=== PATIENT | male | born 1940 | race Caucasian/White ===

== ENCOUNTER 2017-10-20 14:22 | Emergency (ER) | payer MEDICARE ==
[~2017-10-20] VITALS: Ht 167.6 cm; Wt 74.8 kg
[~2017-10-20 14:22] MED LIST: ACET-386 PO; ASPI1TAB71 PO; BISO10TA8 PO; CALC-127 PO; EZET1TAB44 PO; FLAX340P PO; GARL10002 PO; GLUC-113 PO; HCT25T PO; L LYSINE PO; LISI5TAB14 PO; NFPRILOC40; OMEG1CAP51 PO; TELM1TAB3 PO; [UNRECOGNIZED DRUG - CODE] PO; [UNRECOGNIZED DRUG - OTHER]
--- NOTE | 2017-10-20 16:30 | Diagnostic Imaging Report ---
EXAMINATION: Three views of the left elbow. INDICATION: Injury. FINDINGS: There is no fracture, dislocation or radiopaque foreign body. No significant effusion is suggested. IMPRESSION: No fracture is seen. Dictated by: Dictated on workstation # [id number]
--- NOTE | 2017-10-20 16:32 | Diagnostic Imaging Report ---
Three views of the left shoulder. INDICATION: Injury. FINDINGS: No fracture, dislocation, or radiopaque foreign body. The glenohumeral and acromioclavicular joints appear unremarkable. IMPRESSION: Unremarkable exam. Dictated by: Dictated on workstation # [id number]
--- NOTE | 2017-10-20 16:57 | ED Upper Extremity ---
General Chief Complaint: Upper Extremity Stated Complaint: L ARM PAIN, FALL Nursing Sepsis Screen: No Definite Risk History of Present Illness Time seen by provider: 15:45 Initial Comments 77-year-old male reports that he tripped over his dog earlier today falling landing on an outstretched left arm. 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 He's had no other previous injuries to the left arm. He denies head injury or loss of consciousness at the time of the fall. He is reporting left elbow and left shoulder pain. He has a small abrasion on the lateral epicondyles the left elbow. He takes Anacin twice daily for headaches. He issues that for the shoulder and elbow pain and reports no requirements for additional pain medication at this time. Pain/Injury Location: left shoulder, left elbow Method of Injury: fell Modifying Factors: Improves With Immobilization, Improves With Rest Allergies and Home Medications Allergies Coded Allergies: No Known Drug Allergies (Unverified , 06/08/10) Home Medications Aspirin/Caffeine 1 Tab Tablet, 1 TAB PO NEEDED, (Reported) Bisoprolol Fumarate 10 Mg Tablet, 10 PO DAILY, (Reported) EVENING Garlic 1,000 Mg Capsule, 1,000 MG PO DAILY, (Reported) Gluc 2KCL/Chondr/Charles Hy/Hy Ac 1 Each Capsule, 1 EACH PO BID, (Reported) Hydrochlorothiazide 25 Mg Tab, 25 MG PO DAILY, (Reported) Lisinopril 5 Mg Tablet, 5 MG PO DAILY, (Reported) Omeprazole 40 Mg Capsule.dr, DAILY, (Reported) [L Lysine] , 500 MG PO BID, (Reported) Constitutional: no symptoms reported, see HPI Musculoskeletal: see HPI, joint pain (left elbow and left shoulder), muscle pain (left upper extremity) All Other Systems Reviewed Negative Unless Noted: Yes Past Bjqhzkt-Pcijuy-Lntjiq Hx Patient Social History Alcohol Use: Denies Use Recreational Drug Use: No Smoking Status: Former Smoker Type Used: Cigarettes Former Smoker, Quit: Nov 02, 1985 Recent Foreign Travel: No Contact w/Someone Who Travel: No Recent Infectious Disease Expo: No Physical Abuse: No Sexual Abuse: No Mistreated: No Seasonal Allergies Seasonal Allergies: No Surgeries History of Surgeries: Yes (CIRCUMCISION, R KNEE) Surgeries: Eye Surgery, Orthopedic Respiratory History of Respiratory Disorde: No Cardiovascular Cardiac Disorders: Hypertension Neurological History of Neurological Disord: Yes Neurological Disorders: TIA Reproductive System Hx Reproductive Disorders: No Gastrointestinal History of Gastrointestinal Di: Yes Gastrointestinal Disorders: Gastroesophageal Reflux, Hiatal Hernia Musculoskeletal History of Musculoskeletal Dis: Yes Musculoskeletal Disorders: Arthritis Endocrine History of Endocrine Disorders: No HEENT HEENT Disorders: Cataract Cancer History of Cancer: No Psychosocial History of Psychiatric Problem: No Suicide Risk Score: 0 Integumentary History of Skin or Integumenta: No Blood Transfusions History of Blood Disorders: No Reviewed Nursing Assessment Reviewed/Agree w Nursing PMH: Yes Physical Exam Vital Signs Vital Sign - Last 12Hours 10/20/17 14:34 Temp 97.4 Pulse 66 Resp 20 B/P (MAP) 120/73 (89) Pulse Ox 98 O2 Delivery Room Air Capillary Refill : Less Than 3 Seconds General Appearance: WD/WN, no apparent distress Cardiovascular: normal peripheral pulses, regular rate, rhythm, no murmur Respiratory: chest non-tender, lungs clear, normal breath sounds Shoulder: bone tenderness (lateral), No deformity, No ecchymosis, limited ROM ( left shoulder forward elevation to 100, full internal and external rotation but with pain), pain, soft tissue tenderness, No swelling Elbow/Forearm: Left, abrasions (lateral condyle), limited ROM (secondary to pain), pain, soft tissue tenderness, swelling (lateral aspect) Wrist: Yes normal inspection (left), Yes non-tender, Yes no evidence of injury , Yes normal ROM Neurologic/Psychiatric: no motor/sensory deficits, alert, normal mood/affect, oriented x 3 Skin: normal color, warm/dry Lymphatic: no adenopathy Progress/Results/Core Measures Results/Orders My Orders Orders - SHARRON DONOVAN Shoulder, Left, 3 Views (10/20/17 15:53) Elbow, Left, 3 Views (10/20/17 15:53) Dipht,Pertuss(Acell),Tet Adult (Boostrix (10/20/17 17:08) Vital Signs/I&O Vital Sign - Last 12Hours 10/20/17 14:34 Temp 97.4 Pulse 66 Resp 20 B/P (MAP) 120/73 (89) Pulse Ox 98 O2 Delivery Room Air Blood Pressure Mean: 89 Progress Note : Time: 15:45 Progress Note Initial evaluation completed, recommended x-rays of the left elbow and shoulder with reevaluation after these are completed. Tetanus booster, as the patient reports it has been greater than 5 years since his last vaccine probably closer to 15 years. 1630 results of x-rays discussed with the patient and his family, no fractures or dislocations noted. Sling applied for comfort. Ice pack to left shoulder. Discharge instructions and review precautions reviewed with patient. All questions answered. Diagnostic Imaging Plain Films/CT/US/NM/MRI: other Comments NAME: [facility] REC#: [id number] PT STATUS: REG ER : 1940 PHYSICIAN: SHARRON DONOVAN ADMIT DATE: 10/20/17/ER Signed Date of Exam:10/20/17 SHOULDER, LEFT, 3 VIEWS Three views of the left shoulder. INDICATION: Injury. FINDINGS: No fracture, dislocation, or radiopaque foreign body. The glenohumeral and acromioclavicular joints appear unremarkable. IMPRESSION: Unremarkable exam. Dictated by: Dictated on workstation # [id number] Dict: 10/20/17 1623 Trans: 10/20/17 1650 [id number] Interpreted by: BC BILLINGSLEY MD Electronically signed by: BC BILLINGSLEY MD 10/20/171649 Reviewed: Reviewed by Me Plain Films/CT/US/NM/MRI: other (left elbow) Comments NAME: [facility] REC#: [id number] PT STATUS: REG ER : 1940 PHYSICIAN: SHARRON DONOVAN ADMIT DATE: 10/20/17/ER Signed Date of Exam:10/20/17 ELBOW, LEFT, 3 VIEWS EXAMINATION: Three views of the left elbow. INDICATION: Injury. FINDINGS: There is no fracture, dislocation or radiopaque foreign body. No significant effusion is suggested. IMPRESSION: No fracture is seen. Dictated by: Dictated on workstation # [id number] Dict: 10/20/17 162 Trans: 10/20/171649 [facility] [id number] Interpreted by: BC BILLINGSLEY MD Electronically signed by: BC BILLINGSLEY MD 10/20/171649 Reviewed: Reviewed by Me Departure Impression Impression: Primary Impression: Fall Qualified Codes: W19.XXXA - Unspecified fall, initial encounter Additional Impressions: Contusion of left elbow Qualified Codes: S50.02XA - Contusion of left elbow, initial encounter Contusion of left shoulder Qualified Codes: S40.012A - Contusion of left shoulder, initial encounter Disposition: HOME, SELF-CARE Condition: Stable Departure-Patient Inst. Decision time for Depature: 16:30 Referrals: THADDEUS RAMAN MD (PCP/Family) Primary Care Physician Patient Instructions: Contusion (DC) Add. Discharge Instructions: Ice to left elbow and left shoulder 20 minutes every 2 hours while awake. Continue taking Anacin as prescribed for pain. May take Tylenol 650 mg every 6 hours for additional pain. Follow up with your primary care provider if symptoms are not improving. Return to emergency department for new injuries or concerns. Sling for comfort, remove at least twice daily for gentle range of motion to the left elbow and shoulder. All discharge instructions reviewed with patient and/or family. Voiced understanding. Copy Copies To 1: THADDEUS RAMAN MD, AMY ARNP Oct 20, 2017 16:57
[2017-10-20] MEDS ORDERED: TETANUS,DIPTH,PERTUSS P/F (BOOSTRIX) 0.5 ML VIAL IM STA (17:08)
[2017-10-20 17:15] VITALS: BP 123/71
== END 2017-10-20 17:15 | disposition home or self-care (01) ==
LOC: EDUNIT# 14:22 → ER 14:24
DX: S50.02XA Contusion of left elbow, initial encounter (principal); S40.012A Contusion of left shoulder, initial encounter; I10 Essential (primary) hypertension; K21.9 Gastro-esophageal reflux disease without esophagitis; M19.90 Unspecified osteoarthritis, unspecified site; Z23 Encounter for immunization; Z86.73 Personal history of transient ischemic attack (TIA), and cerebral infarction without residual deficits; Z87.19 Personal history of other diseases of the digestive system; Z79.82 Long term (current) use of aspirin; Z87.891 Personal history of nicotine dependence; W01.0XXA Fall on same level from slipping, tripping and stumbling without subsequent striking against object, initial encounter
CPT/HCPCS: 73030; 73080; 90715; 99284

== ENCOUNTER 2018-03-14 08:07 | Day surgery (SDC) | payer MEDICARE ==
[~2018-03-14] VITALS: Ht 167.6 cm; Wt 74.8 kg
[~2018-03-14 08:07] MED LIST changes: +BISO10TA PO; +GARL1TAB PO; +HYDR25TA4 PO; +LISI-556 PO; +LYSI600T PO; +MV,M1TAB2 PO; +OMEP40CA36 PO; +POTA-51 PO
[2018-03-14] MEDS ORDERED: NS IV 500 ML 500 ML ONE (08:43)
[2018-03-14] MEDS ORDERED: NS IV 500 ML 500 ML IV ONE (08:45)
[2018-03-14] MEDS ORDERED: fentaNYL INJECTION 100 MCG/2 ML AMP IVP PRN (08:45)
[2018-03-14] MEDS ORDERED: MIDAZOLAM 2 MG/2 ML (VERSED) VIAL IVP PRN (08:45)
[2018-03-14 08:50] VITALS: BP 112/70
[2018-03-14] MEDS ORDERED: fentaNYL INJECTION 100 MCG/2 ML AMP ONE (09:37)
[2018-03-14] MEDS ORDERED: MIDAZOLAM 2 MG/2 ML (VERSED) VIAL ONE ×2 (09:37)
--- NOTE | 2018-03-14 09:57 | Conscious Sedation/ASA ---
Conscious Sedation Pre-Proced Time Reviewed: 09:57 ASA Class: 2 Airway Mallampati Classification: ([place] appropriate class) I. II. III, IV Lungs Heart ASA score ASA 1: a normal healthy patient ASA 2: a patient with a mild systemic disease (mid diabetes, controlled hypertension, obesity ASA 3: a patient with a severe systemic disease that limits activity (angina , COPD, prior Myocardial infarction) ASA 4: a patient with an incapacitating disease that is a constant threat to life (CHF, renal failure) ASA 5: a moribund patient not expected to survive 24 hrs. (ruptured aneurysm) ASA 6: a declared brain patient whose organs are being harvested. For emergent operations, add the letter E after the classification Grade 2 Sedation Plan: Discussed options with patient/fam Note The patient is an appropriate candidate to undergo the planned procedure, sedation, and anesthesia. The patient immediately re-assessed prior to indication. ROSELYN ANDRES MD Mar 14, 2018 9:57 am
--- NOTE | 2018-03-14 09:57 | History & Physicial ---
History of Present Illness History of Present Illness Reason for visit/HPI to undergo screening colonoscopy. Date of Admission 03/14/18 Date Seen by Provider: Mar 14, 2018 Time Seen by Provider: 09:56 I consulted on this patient on 03/14/18 09:55 Attending Physician Roselyn Andres MD Admitting Physician Erasmo Nick MD Consult Allergies and Home Medications Allergies Coded Allergies: No Known Drug Allergies (Unverified , 06/08/10) Home Medications Bisoprolol Fumarate 10 Mg Tablet, 10 MG PO HS, (Reported) Garlic 1 Each Tablet, 1 EACH PO DAILY, (Reported) Gluc 2Kcl/Chondr/Charles Hy/Hy AC 1 Each Capsule, 1 EACH PO BID, (Reported) Hydrochlorothiazide 25 Mg Tablet, 25 MG PO DAILY, (Reported) Lisinopril 5 Mg Tablet, 5 MG PO DAILY, (Reported) Lysine 600 Mg Tablet, 600 MG PO BID, (Reported) Mv,Minerals/FA/Lycopene/Ginkgo 1 Each Tablet, 1 EACH PO DAILY, (Reported) Omeprazole 40 Mg Capsule.dr, 40 MG PO DAILY, (Reported) Potassium Chloride 20 Meq Tablet.er, 20 MEQ PO DAILY, (Reported) Patient Home Medication List Home Medication List Reviewed: Yes Past Gsxdlwv-Chjepv-Fclbmi Hx Patient Social History Marrital Status: Employed/Student: retired Alcohol Use: Denies Use Recreational Drug Use: No Smoking Status: Former Smoker Former Smoker, Quit: Nov 02, 1985 Type Used: Cigarettes Recent Foreign Travel: No Contact w/other who traveled: No Recent Hopitalizations: No Recent Infectious Disease Expo: No Immunizations Up To Date Date of Influenza Vaccine: Sep 06, 2017 Seasonal Allergies Seasonal Allergies: Yes Surgeries Yes (CIRCUMCISION, R KNEE) Eye Surgery, Orthopedic Respiratory No Cardiovascular Hypertension Neurological Yes TIA Reproductive System Hx Reproductive Disorders: No Gastrointestinal Yes Gastroesophageal Reflux, Hiatal Hernia Musculoskeletal Yes Arthritis Endocrine History of Endocrine Disorders: No HEENT HEENT Disorders: Cataract Cancer No Psychosocial History of Psychiatric Problem: No Integumentary History of Skin or Integumenta: No Blood Transfusions History of Blood Disorders: No Constitutional: no symptoms reported EENTM: no symptoms reported Respiratory: no symptoms reported Cardiovascular: no symptoms reported Gastrointestinal: no symptoms reported Genitourinary: no symptoms reported Musculoskeletal: joint pain Skin: no symptoms reported Psychiatric/Neurological: No Symptoms Reported Physical Exam Vital Signs Vital Signs - First Documented 03/14/18 08:50 Temp 98.0 Pulse 63 Resp 18 B/P (MAP) 112/70 (84) Pulse Ox 96 O2 Delivery Room Air Capillary Refill : General Appearance: No Apparent Distress Neck: Normal Inspection Respiratory: Lungs Clear Cardiovascular: Regular Rate, Rhythm Gastrointestinal: Non Tender, Soft Rectal: Deferred Extremity: Normal Inspection Neurologic/Psychiatric: Alert, Oriented x3 Skin: Warm/Dry Assessment/Plan Assessment and Plan gentleman here to undergo screening colonoscopy. Discussed in detail Admission Diagnosis Admission Status: Other (Outpt Proc) ROSELYN ANDRES MD Mar 14, 2018 9:57 am
--- NOTE | 2018-03-14 11:50 | Endo Procedure Record ---
Endo Procedure Report Date of Procedure Last Colonoscopy: No Mar 14, 2018 Surgeon (s) ROSELYN ANDRES MD Post Procedure/Op Diagnosis 3 mm sessile polyp at the midrectum 2 mm polyp at mid sigmoid colon 2 mm polyp at the distal descending colon Very few diverticula Procedure Performed Colonoscopy to cecum Snare polypectomy 3 Description of Procedure Anesthesia Type: Conscious Sedation Specimen(s) collected/removed polyps 3 Description of the Procedure Indication for the procedure: This gentleman came in for a screening colonoscopy. Informed consent was obtained after reviewing the procedure in detail. Description of the procedure: She was placed in left lateral decubitus position and his vital signs were monitored. Conscious sedation was achieved using Versed and fentanyl. Digital rectal examination was unremarkable. The colonoscope was then introduced in the rectum and advanced all the way up to cecum. The scope was then withdrawn slowly and the mucosa examined in a systematic fashion. Findings 1. A 3 mm, sessile polyp at the mid rectum, that was snared and retrieved 2. 2 mm polyp at the sigmoid colon that was snared and retrieved 3. 2 mm polyp at the distal descending colon, there was snared and removed as well. 4. Very few sigmoid diverticula .He tolerated the procedure well and was taken back to the nursing area in a stable condition. Impression: Screening colonoscopy. Rectal and left colon polyps excised. Recommend repeating 2 years. Copies To: THADDEUS RAMAN MD, XAVIER M MD Mar 14, 2018 11:50 am
--- NOTE | 2018-03-14 11:52 | Discharge Inst-Simple/Standard ---
Discharge Inst-Standard Discharge Medications New, Converted or Re-Newed RX: Other Patient Instructions/Follow Up Plan of Care/Instructions/FU: Repeat colonoscopy in 2 years Activity as Tolerated: Yes Discharge Diet: No Restrictions ROSELYN ANDRES MD Mar 14, 2018 11:52 am
[2018-03-14 12:00] VITALS: BP 106/58
[2018-03-14 12:30] VITALS: BP 113/49
[2018-03-14 13:05] VITALS: BP 113/49
== END 2018-03-14 13:05 | disposition home or self-care (01) ==
LOC: ENDO 08:07
PROVIDERS: ATTEND Surgery
DX: Z12.11 Encounter for screening for malignant neoplasm of colon (principal); D12.4 Benign neoplasm of descending colon; K63.5 Polyp of colon; D12.8 Benign neoplasm of rectum; K57.30 Diverticulosis of large intestine without perforation or abscess without bleeding; I10 Essential (primary) hypertension; K21.9 Gastro-esophageal reflux disease without esophagitis; Z86.73 Personal history of transient ischemic attack (TIA), and cerebral infarction without residual deficits; Z87.891 Personal history of nicotine dependence; Z79.899 Other long term (current) drug therapy
CPT/HCPCS: 88305

== ENCOUNTER 2018-04-12 22:03 | Emergency (ER) | payer MEDICARE ==
[~2018-04-12] VITALS: Ht 167.6 cm; Wt 74.8 kg
[2018-04-12] MEDS ORDERED: LACTATED RINGERS 1,000 ML IV ONE (22:21)
[2018-04-12] MEDS ORDERED: TETANUS,DIPTH,PERTUSS P/F (BOOSTRIX) 0.5 ML VIAL IM ONE (22:30)
[2018-04-12 22:34] VITALS: BP_SYST 115; BP_SYST 116; BP_SYST 126; BP_DIAS 62; BP_DIAS 68
[2018-04-12 22:43] LABS: BASOPHILS % (AUTO) 0 % (0-10); EOSINOPHILS # (AUTO) 0.1 10^3/uL (0.0-0.3); EOSINOPHILS % (AUTO) 1 % (0-10); HEMATOCRIT 41 % (40-54); HEMOGLOBIN 14.7 G/DL (13.3-17.7); LYMPHOCYTES # (AUTO) 0.7 X 10^3 (1.0-4.0); LYMPHOCYTES % (AUTO) 6 % (12-44); MEAN CORPUSCULAR HEMOGLOBIN 33 PG (25-34); MEAN CORPUSCULAR HGB CONC 36 G/DL (32-36); MEAN CORPUSCULAR VOLUME 92 FL (80-99); MEAN PLATELET VOLUME 10.6 FL (7.4-10.4); MONOCYTES # (AUTO) 1.1 X 10^3 (0.0-1.0); MONOCYTES % (AUTO) 10 % (0-12); NEUTROPHILS # (AUTO) 8.7 X 10^3 (1.8-7.8); NEUTROPHILS % (AUTO) 82 % (42-75); PLATELET COUNT 252 10^3/uL (130-400); RED BLOOD COUNT 4.41 10^6/uL (4.35-5.85); RED CELL DISTRIBUTION WIDTH 13.3 % (10.0-14.5); WHITE BLOOD COUNT 10.6 10^3/uL (4.3-11.0)
--- NOTE | 2018-04-12 22:43 | ED General ---
General Stated Complaint: FALL Source of Information: Patient History of Present Illness Date Seen by Provider: April 12, 2018 Time Seen by Provider: 22:12 Initial Comments PT ARRIVES VIA POV FROM HOME PT STATES HE ATE AT [facility] AND ATE ALOT OF FOOD WITH CHEESE-- AROUND 1730 TONIGHT PT STATES HE IS LACTOSE INTOLERANT, YET HE ATE ALOT OF CHEESE TONIGHT AFTER HE GOT HOME THIS EVENING, HE BEGAN TO HAVE NAUSEA/VOMITING/DIARRHEA-- STATES HE VOMITED AND HAD DIARRHEA AT LEAST A DOZEN TIMES OF EACH. STATES HE TRIED TO GET UP OFF THE TOILET AFTER THE LAST EPISODES AND PASSED OUT- -THINKS HE HIT PART OF THE DOOR WHEN HE PASSED OUT. STATES HE WOKE UP ON THE FLOOR, AND WAS INCONTINENT OF BOWEL. WAS IN ANOTHER ROOM AND HEARD HIM FALL, AND WHEN SHE GOT TO HIM, HE WAS ALREADY AWAKE AND WAS ACTING NORMAL, BUT WAS VERY SHAKEY AND WAS VERY COLD HAD A NOSEBLEED AND HAS PAIN TO HIS NOSE. ALSO HAS ABRASIONS TO BOTH ELBOWS AND BRUISING AND SWELLING TO THE AREA ON THE LEFT NO ABDOMINAL PAIN NO CHEST PAIN NO SHORTNESS OF BREATH NO PALPITATIONS NO NEW NECK OR BACK PAIN--HAS CHRONIC NECK /BACK PAIN NO PARESTHESIAS OR MOTOR DEFICITS NO VISION CHANGES--DID NOT BREAK GLASSES NO HEADACHE NO HISTORY OF SIMILAR. PT STATES HE FEELS FINE NOW, AND HAS NO NAUSEA AT THIS TIME PCP: DR. RAMAN Allergies and Home Medications Allergies Coded Allergies: No Known Drug Allergies (Unverified , 06/08/10) Home Medications Bisoprolol Fumarate 10 Mg Tablet, 10 MG PO HS, (Reported) Garlic 1 Each Tablet, 1 EACH PO DAILY, (Reported) Gluc 2Kcl/Chondr/Charles Hy/Hy AC 1 Each Capsule, 1 EACH PO BID, (Reported) Hydrochlorothiazide 25 Mg Tablet, 25 MG PO DAILY, (Reported) Lisinopril 5 Mg Tablet, 5 MG PO DAILY, (Reported) Lysine 600 Mg Tablet, 600 MG PO BID, (Reported) Mv,Minerals/FA/Lycopene/Ginkgo 1 Each Tablet, 1 EACH PO DAILY, (Reported) Omeprazole 40 Mg Capsule.dr, 40 MG PO DAILY, (Reported) Potassium Chloride 20 Meq Tablet.er, 20 MEQ PO DAILY, (Reported) Patient Home Medication List Home Medication List Reviewed: Yes Review of Systems Constitutional: see HPI EENTM: see HPI Respiratory: no symptoms reported Cardiovascular: see HPI, syncope Gastrointestinal: see HPI; No abdominal pain; diarrhea, nausea, vomiting Genitourinary: no symptoms reported Musculoskeletal: see HPI Skin: see HPI Psychiatric/Neurological: See HPI; Denies Headache, Denies Numbness, Denies Paresthesia, Denies Seizure, Denies Weakness Hematologic/Lymphatic: No Symptoms Reported Immunological/Allergic: no symptoms reported Past Vjdzepd-Voxpct-Vuhjza Hx Patient Social History Smoking Status: Former Smoker Type Used: Cigarettes Former Smoker, Quit: Nov 02, 1985 Recent Foreign Travel: No Contact w/Someone Who Travel: No Recent Hopitalizations: No Immunizations Up To Date Date of Influenza Vaccine: Sep 06, 2017 Seasonal Allergies Seasonal Allergies: Yes Past Medical History Surgeries: Yes (CIRCUMCISION, R KNEE) Eye Surgery, Orthopedic Respiratory: No Cardiac: Yes Hypertension Neurological: Yes TIA Reproductive Disorders: No Genitourinary: No Gastrointestinal: Yes Gastroesophageal Reflux, Hiatal Hernia Musculoskeletal: Yes (CHRONIC NECK PAIN) Arthritis, Chronic Back Pain Endocrine: No HEENT: Yes (GLASSES) Cataract Cancer: No Psychosocial: No Integumentary: No Blood Disorders: No Physical Exam Vital Signs Vital Signs - First Documented 04/12/18 22:08 Temp 98.4 Pulse 81 Resp 12 B/P (MAP) 118/72 (87) O2 Delivery Room Air Capillary Refill : General Appearance: No Apparent Distress, WD/WN, Other (AMBULATES INTO ER ON HIS OWN WITHOUT DIFFICULTY) HEENT: PERRL/EOMI, TMs Normal, Other (ERYTHEMA AND TENDERNESS TO NOSE. DRIED BLOOD IN NARES. NO SEPTAL HEMATOMA. NO BONY TENDERNESS TO FACE) Neck: Full Range of Motion, Normal Inspection, Non Tender, Supple Respiratory: Chest Non Tender, Normal Breath Sounds, No Accessory Muscle Use, No Respiratory Distress Cardiovascular: Regular Rate, Rhythm, No Edema, No JVD, No Murmur, Normal Peripheral Pulses Gastrointestinal: Normal Bowel Sounds, No Organomegaly, No Pulsatile Mass, Non Tender, Soft Back: Normal Inspection, No CVA Tenderness, No Vertebral Tenderness Extremity: Normal Capillary Refill, Normal Range of Motion, No Calf Tenderness , No Pedal Edema, Other (ABRASIONS TO BOTH ELBOWS. LEFT ELBOW/PROXIMAL FOREARM WITH LARGER ABRASION WITH MODERATE SWELLING AND BRUISING. MILD TENDERNESS TO AREA) Neurologic/Psychiatric: Alert, Oriented x3, No Motor/Sensory Deficits, Normal Mood/Affect, fuse spooler II-XII Norm as Tested; No Abnormal Cerebellar Tests Skin: Normal Color, Warm/Dry Progress/Results/Core Measures Suspected Sepsis SIRS Temperature: Pulse: Respiratory Rate: Laboratory Tests 04/12/18 22:24: White Blood Count 10.6 Blood Pressure / Mean: Laboratory Tests 04/12/18 22:24: Creatinine 1.55H, Platelet Count 252, Total Bilirubin 0.5 Results/Orders Lab Results Laboratory Tests Test 04/12/18 22:24 04/12/18 23:20 Range/Units White Blood Count 10.6 4.3-11.0 10^3/uL Red Blood Count 4.41 4.35-5.85 10^6/uL Hemoglobin 14.7 13.3-17.7 G/DL Hematocrit 41 40-54 % Mean Corpuscular Volume 92 80-99 FL Mean Corpuscular Hemoglobin 33 25-34 PG Mean Corpuscular Hemoglobin Concent 36 32-36 G/DL Red Cell Distribution Width 13.3 10.0-14.5 % Platelet Count 252 130-400 10^3/uL Mean Platelet Volume 10.6 H 7.4-10.4 FL Neutrophils (%) (Auto) 82 H 42-75 % Lymphocytes (%) (Auto) 6 L 12-44 % Monocytes (%) (Auto) 10 0-12 % Eosinophils (%) (Auto) 1 0-10 % Basophils (%) (Auto) 0 0-10 % Neutrophils # (Auto) 8.7 H 1.8-7.8 X 10^3 Lymphocytes # (Auto) 0.7 L 1.0-4.0 X 10^3 Monocytes # (Auto) 1.1 H 0.0-1.0 X 10^3 Eosinophils # (Auto) 0.1 0.0-0.3 10^3/uL Basophils # (Auto) 0.0 0.0-0.1 10^3/uL Neutrophils % (Manual) 61 % Lymphocytes % (Manual) 14 % Monocytes % (Manual) 8 % Eosinophils % (Manual) 1 % Basophils % (Manual) 0 % Band Neutrophils 16 % Blood Morphology Comment NORMAL Sodium Level 138 135-145 MMOL/L Potassium Level 3.4 L 3.6-5.0 MMOL/L Chloride Level 101 98-107 MMOL/L Carbon Dioxide Level 21 21-32 MMOL/L Anion Gap 16 H 5-14 MMOL/L Blood Urea Nitrogen 18 7-18 MG/DL Creatinine 1.55 H 0.60-1.30 MG/DL Estimat Glomerular Filtration Rate 44 BUN/Creatinine Ratio 12 Glucose Level 124 H 70-105 MG/DL Calcium Level 9.6 8.5-10.1 MG/DL Total Bilirubin 0.5 0.1-1.0 MG/DL Aspartate Amino Transf (AST/SGOT) 39 H 5-34 U/L Alanine Aminotransferase (ALT/SGPT) 39 0-55 U/L Alkaline Phosphatase 101 40-136 U/L Troponin I < 0.30 <0.30 NG/ML Total Protein 8.2 6.4-8.2 GM/DL Albumin 4.7 H 3.2-4.5 GM/DL Amylase Level 63 25-125 U/L Lipase 40 8-78 U/L TSH [place] Testing 2.63 0.35-4.94 UIU/ML Urine Color YELLOW Urine Clarity CLEAR Urine pH 6 5-9 Urine Specific [place] 1.015 L 1.016-1.022 Urine Protein NEGATIVE NEGATIVE Urine Glucose (UA) NEGATIVE NEGATIVE Urine Ketones NEGATIVE NEGATIVE Urine Nitrite NEGATIVE NEGATIVE Urine Bilirubin NEGATIVE NEGATIVE Urine Urobilinogen NORMAL NORMAL MG/DL Urine Leukocyte Esterase NEGATIVE NEGATIVE Urine RBC (Auto) 2+ H NEGATIVE Urine RBC RARE /HPF Urine WBC NONE /HPF Urine Squamous Epithelial Cells RARE /HPF Urine Crystals NONE /LPF Urine Bacteria NEGATIVE /HPF Urine Casts NONE /LPF Urine Mucus NEGATIVE /LPF Urine Culture Indicated NO My Orders Orders - [place] SHARMAA K DO Dipht,Pertuss(Acell),Tet Adult (Boostrix (04/12/18 22:30) Saline Lock/Iv-Start (04/12/18 22:21) Ekg Tracing (04/12/18 22:21) Monitor-Rhythm Ecg Trace Only (04/12/18 22:21) Orthostatic Vital Signs (Adult (04/12/18 22:21) Ct Head/Face/Cervical Wo (04/12/18 22:21) Chest 1 View, Ap/Pa Only (04/12/18 22:21) Amylase (04/12/18 22:21) Cbc With Automated Diff (04/12/18 22:21) Comprehensive Metabolic Panel (04/12/18 22:21) Lipase (04/12/18 22:21) Thyroid Analyzer (04/12/18 22:21) Troponin I (04/12/18 22:21) Ua Culture If Indicated (04/12/18 22:21) Saline Lock/Iv-Start (04/12/18 22:21) Lactated Ringers (Lr 1000 Ml Iv Solution (04/12/18 22:21) Elbow, Bilateral, 3 View (04/12/18 22:21) Forearm, Left, 2 Views (04/12/18 22:34) Manual Differential (04/12/18 22:24) Rx-Ondansetron Po (Rx-Zofran Po) (04/12/18 23:46) Medications Given in ED Current Medications Medications Dose Ordered Sig/Juan Route Start Time Stop Time Status Last Admin Dose Admin Diphtheria/ Tetanus/Acell Pertussis 0.5 ml ONCE ONCE IM 04/12/18 22:30 04/12/18 22:31 DC 04/12/18 22:44 0.5 ML Lactated Ringer's 1,000 ml @ 0 mls/hr Q0M ONCE IV 04/12/18 22:21 04/12/18 22:24 DC 04/12/18 22:40 1,000 MLS/HR Vital Signs/I&O 04/12/18 04/12/18 22:08 22:34 Temp 98.4 Pulse 81 81 Resp 12 B/P (MAP) 118/72 (87) 126/62 (83) 116/68 (84) 115/68 (84) O2 Delivery Room Air Capillary Refill : Progress Note : Progress Note PT HAD NO SYMPTOMS OF ANY KIND DURING ER STAY ECG Initial ECG Impression Date: April 12, 2018 Initial ECG Impression Time: 22:30 Initial ECG Rate: 81 Initial ECG Rhythm: Normal Sinus (LAFB) Diagnostic Imaging Comments CT HEAD/MAXILLOFACIALS/CERVICAL SPINE--NO ACUTE PROCESS, DEGENERATIVE CHANGES OF CERVICAL SPINE--PER [facility] VIA FAX @ 9820 CXR--NO ACUTE PROCESS LEFT FOREARM--NO ACUTE BONY INJURY, + SOFT TISSUE SWELLING BILATERAL ELBOWS--NO ACUTE BONY INJURY ALL PENDING RADIOLOGIST REVIEW Reviewed: Reviewed by Me Departure Impression Primary Impression: Vasovagal syncope Additional Impressions: Dehydration Nausea, vomiting and diarrhea Lactose intolerance Nasal contusion BILATERAL ELBOW CONTUSIONS AND ABRASIONS Zqleemwyxy-thzjtsckr-dwgnjge (DPT) vaccination administered at current visit Disposition: HOME, SELF-CARE Condition: Stable Departure-Patient Inst. Referrals: THADDEUS RAMAN MD (PCP/Family) Primary Care Physician Patient Instructions: Contusion (DC), Dehydration, Adult (DC), Diphtheria and Tetanus Toxoids, and Acellular Pertussis Vaccine, [id number], Nausea and Vomiting, Adult (DC), Skin Abrasions (DC), Syncope (Fainting) (DC), Wound Care (DC) Add. Discharge Instructions: ICE TO SORE AREAS AT 20 MINUTE INTERVALS LOTS OF CLEAR LIQUIDS--WATER, GATORADE, BROTH, JELLO TOMORROW IF YOU ARE BETTER, ADD BRATS DIET TO CLEAR LIQUIDS--BANANAS, RICE, APPLESAUCE, TOAST, SALTINES FOLLOW UP WITH YOUR DR IN 1-2 DAYS IF NO BETTER, RETURN TO ER IF WORSE Images Full Body/Extremities Full Progress SEE ADDITIONAL PAPER DIAGRAMS FOR IMAGES NIRALI SHARMA DO April 12, 2018 22:43
[2018-04-12 22:57] LABS: ALANINE AMINOTRANSFERASE 39 U/L (0-55); ALBUMIN 4.7 GM/DL (3.2-4.5); ALKALINE PHOSPHATASE 101 U/L (40-136); AMYLASE 63 U/L (25-125); BILIRUBIN,TOTAL 0.5 MG/DL (0.1-1.0); BUN/CREATININE RATIO 12; CALCIUM 9.6 MG/DL (8.5-10.1); CARBON DIOXIDE 21 MMOL/L (21-32); CHLORIDE 101 MMOL/L (98-107); CREATININE SERUM 1.55 MG/DL (0.60-1.30); GFR ESTIMATED 44; GLUCOSE 124 MG/DL (70-105); LIPASE 40 U/L (8-78); POTASSIUM 3.4 MMOL/L (3.6-5.0); SODIUM 138 MMOL/L (135-145); TOTAL PROTEIN 8.2 GM/DL (6.4-8.2)
[2018-04-12 22:58] LABS: BAND NEUTROPHILS 16 %; BASOPHILS % (MANUAL) 0 %; EOSINOPHILS % (MANUAL) 1 %; LYMPHOCYTES % (MANUAL) 14 %; MONOCYTES % (MANUAL) 8 %; NEUTROPHILS % (MANUAL) 61 %; RBC MORPH NORMAL
--- OUTSIDE RECORDS SUMMARY | 2018-04-12 23:06 | XMS REPORT | Continuity of Care Document ---
Author Author [facility] Organization [facility] Address Unknown Phone Unavailable Allergies Active Description Code Type Severity Reaction Onset Reported/Identified Relationship to Patient Clinical Status Yes No Known Drug Allergies [id number] Drug Allergy Unknown N/A 06/08/2010 Medications There is no data. Problems Date Dx Coded Attending Type Code Diagnosis Diagnosed By 06/12/2010 Ot 276.8 06/12/2010 Ot 401.9 06/12/2010 Ot 558.9 04/02/2015 Ot 780.2 04/02/2015 Ot 433.10 04/02/2015 Ot 433.30 04/02/2015 Ot 780.2 04/14/2015 TIGIST DAVALOS APRN Ot 401.9 HYPERTENSION NOS 04/14/2015 TIGIST DAVALOS RELATIONSHIP BANKER Ot 530.81 ESOPHAGEAL REFLUX 04/14/2015 TIGIST DAVALOS APRN Ot 553.3 DIAPHRAGMATIC HERNIA 04/14/2015 TIGIST DAVALOS APRN Ot 715.36 LOC OSTEOARTH NOS-L/LEG 04/14/2015 TIGIST DAVALOS APRN Ot 719.46 JOINT PAIN-L/LEG 04/14/2015 TIGIST DAVALOS [employer]ATIONSHIP BANKER Ot V12.54 PERSONAL HX OF TIA, CEREBRAL INFARCTION 05/07/2015 VANI TOVAR MD Ot 719.46 05/09/2015 VANI TOVAR MD Ot 719.46 10/20/2017 VANI TOVAR MD Ot 719.46 JOINT PAIN-L/LEG 10/20/2017 SHARRON DONOVAN Ot I10 ESSENTIAL (PRIMARY) HYPERTENSION 10/20/2017 SHARRON DONOVAN Ot K21.9 GASTRO-ESOPHAGEAL REFLUX DISEASE WITHOUT 10/20/2017 SHARRON DONOVAN Ot M19.90 UNSPECIFIED OSTEOARTHRITIS, UNSPECIFIED 10/20/2017 SHARRON DONOVAN Ot M25.522 PAIN IN LEFT ELBOW 10/20/2017 SHARRON DONOVAN Ot S40.012A CONTUSION OF LEFT SHOULDER, INITIAL ENCO 10/20/2017 VENUS, SHARRON FURNITURE ASSEMBLER Ot S50.02XA CONTUSION OF LEFT ELBOW, INITIAL ENCOUNT 10/20/2017 VENUS, SHARRON FURNITURE ASSEMBLER Ot W01.0XXA FALL SAME LEV FROM SLIP/TRIP W/O STRIKE 10/20/2017 VENUS, SHARRON FURNITURE ASSEMBLER Ot Z23 ENCOUNTER FOR IMMUNIZATION 10/20/2017 VENUS, SHARRON FURNITURE ASSEMBLER Ot Z79.82 SAND ANALYST (CURRENT) USE OF ASPIRIN 10/20/2017 VENUS, SHARRON FURNITURE ASSEMBLER Ot Z86.73 PRSNL HX OF TIA (TIA), AND CEREB INFRC W 10/20/2017 VENUS, SHARRON FURNITURE ASSEMBLER Ot Z87.19 PERSONAL HISTORY OF OTHER DISEASES OF 10/20/2017 VENUS, SHARRON FURNITURE ASSEMBLER Ot Z87.891 PERSONAL HISTORY OF NICOTINE DEPENDENCE 10/21/2017 LA MASTERS, VANI Rhodes Ot 719.46 JOINT PAIN-L/LEG 10/28/2017 VENUS, SHARRON FURNITURE ASSEMBLER Ot I10 ESSENTIAL (PRIMARY) HYPERTENSION 10/28/2017 VENUS, SHARRON FURNITURE ASSEMBLER Ot K21.9 GASTRO-ESOPHAGEAL REFLUX DISEASE WITHOUT 10/28/2017 VENUS, SHARRON FURNITURE ASSEMBLER Ot M19.90 UNSPECIFIED OSTEOARTHRITIS, UNSPECIFIED 10/28/2017 VENUS, SHARRON FURNITURE ASSEMBLER Ot M25.522 PAIN IN LEFT ELBOW 10/28/2017 VENUS, SHARRON FURNITURE ASSEMBLER Ot S40.012A CONTUSION OF LEFT SHOULDER, INITIAL ENCO 10/28/2017 VENUS, SHARRON FURNITURE ASSEMBLER Ot S50.02XA CONTUSION OF LEFT ELBOW, INITIAL ENCOUNT 10/28/2017 VENUS, SHARRON FURNITURE ASSEMBLER Ot W01.0XXA FALL SAME LEV FROM SLIP/TRIP W/O STRIKE 10/28/2017 VENUS, SHARRON FURNITURE ASSEMBLER Ot Z23 ENCOUNTER FOR IMMUNIZATION 10/28/2017 VENUS, SHARRON FURNITURE ASSEMBLER Ot Z79.82 LONGTERM (CURRENT) USE OF ASPIRIN 10/28/2017 VENUS, SHARRON FURNITURE ASSEMBLER Ot Z86.73 PRSNL HX OF TIA (TIA), AND CEREB INFRC W 10/28/2017 VENUS, SHARRON FURNITURE ASSEMBLER Ot Z87.19 PERSONAL HISTORY OF OTHER DISEASES OF TH 10/28/2017 VENUS, SHARRON FURNITURE ASSEMBLER Ot Z87.891 PERSONAL HISTORY OF NICOTINE DEPENDENCE 03/07/2018 DMITRY MASTERS, ROSELYN Brennan Ot Z01.818 ENCOUNTER FOR OTHER PREPROCEDURAL EXAMIN 03/07/2018 ROSELYN ANDRES MD Ot Z12.11 ENCOUNTER FOR SCREENING FOR MALIGNANT NE 03/08/2018 ROSELYN ANDRES MD Ot Z01.818 ENCOUNTER FOR OTHER PREPROCEDURAL EXAMIN 03/08/2018 ROSELYN ANDRES MD Ot Z12.11 ENCOUNTER FOR SCREENING FOR MALIGNANT NE 03/10/2018 LA MASTERS, VANI Rhodes Ot 719.46 JOINT PAIN-L/LEG 03/14/2018 ROSELYN ANDRES MD Ot D12.4 BENIGN NEOPLASM OF DESCENDING COLON 03/14/2018 ROSELYN ANDRES MD Ot D12.8 BENIGN NEOPLASM OF RECTUM 03/14/2018 ROSELYN ANDRES MD Ot I10 ESSENTIAL (PRIMARY) HYPERTENSION 03/14/2018 ROSELYN ANDRES MD Ot K21.9 GASTRO-ESOPHAGEAL REFLUX DISEASE WITHOUT 03/14/2018 ROSELYN ANDRES MD Ot K57.30 DVRTCLOS OF LG INT W/O PERFORATION OR AB 03/14/2018 ROSELYN ANDRES MD Ot K63.5 POLYP OF COLON 03/14/2018 ROSELYN ANDRES MD Ot Z12.11 ENCOUNTER FOR SCREENING FOR MALIGNANT NE 03/14/2018 ROSELYN ANDRES MD Ot Z79.899 OTHER SAND ANALYST (CURRENT) DRUG THERAPY 03/14/2018 ROSELYN ANDRES MD Ot Z86.73 PRSNL HX OF TIA (TIA), AND CEREB INFRC W 03/14/2018 ROSELYN ANDRES MD Ot Z87.891 PERSONAL HISTORY OF NICOTINE DEPENDENCE 03/16/2018 ROSELYN ANDRES MD Ot D12.4 BENIGN NEOPLASM OF DESCENDING COLON 03/16/2018 ROSELYN ANDRES MD Ot D12.8 BENIGN NEOPLASM OF RECTUM 03/16/2018 ROSELYN ANDRES MD Ot I10 ESSENTIAL (PRIMARY) HYPERTENSION 03/16/2018 ROSELYN ANDRES MD Ot K21.9 GASTRO-ESOPHAGEAL REFLUX DISEASE WITHOUT 03/16/2018 ROSELYN ANDRES MD Ot K57.30 DVRTCLOS OF LG INT W/O PERFORATION OR AB 03/16/2018 ROSELYN ANDRES MD Ot K63.5 POLYP OF COLON 03/16/2018 ROSELYN ANDRES MD Ot Z12.11 ENCOUNTER FOR SCREENING FOR MALIGNANT NE 03/16/2018 ROSELYN ANDRES MD Ot Z79.899 OTHER SAND ANALYST (CURRENT) DRUG THERAPY 03/16/2018 ROSELYN ANDRES MD Ot Z86.73 PRSNL HX OF TIA (TIA), AND CEREB INFRC W 03/16/2018 ROSELYN ANDRES MD Ot Z87.891 PERSONAL HISTORY OF NICOTINE DEPENDENCE 03/16/2018 ROSELYN ANDRES MD Ot D12.4 BENIGN NEOPLASM OF DESCENDING COLON 03/16/2018 ROSELYN ANDRES MD, Ot D12.8 BENIGN NEOPLASM OF RECTUM 03/16/2018 ROSELYN ANDRES MD Ot I10 ESSENTIAL (PRIMARY) HYPERTENSION 03/16/2018 ROSELYN ANDRES MD Ot K21.9 GASTRO-ESOPHAGEAL REFLUX DISEASE WITHOUT 03/16/2018 ROSELYN ANDRES MD, Ot K57.30 DVRTCLOS OF LG INT W/O PERFORATION OR AB 03/16/2018 ROSELYN ANDRES MD, Ot K63.5 POLYP OF COLON 03/16/2018 ROSELYN ANDRES MD, Ot Z12.11 ENCOUNTER FOR SCREENING FOR MALIGNANT NE 03/16/2018 ROSELYN ANDRES MD, Ot Z79.899 OTHER LONGTERM (CURRENT) DRUG THERAPY 03/16/2018 ROSELYN ANDRES MD, Ot Z86.73 PRSNL HX OF TIA (TIA), AND CEREB INFRC W 03/16/2018 ROSELYN ANDRES MD, Ot Z87.891 PERSONAL HISTORY OF NICOTINE DEPENDENCE Procedures There is no data. Results There is no data. Encounters ACCT No. Visit Date/Time Discharge Status Pt. Type Provider Facility Loc./Unit Complaint [id number] 03/14/2018 08:07:00 03/14/2018 13:05:00 DIS Outpatient ROSELYN ANDRES MD [facility] ENDO SCREENING [id number] 03/07/2018 05:53:00 03/07/2018 15:02:00 DIS Outpatient ROSELYN ANDRES MD [facility] PREOP COLONOSCOPY [id number] 10/20/2017 14:24:00 10/20/2017 17:15:00 DIS Emergency SHARRON DONOVAN [facility] ER L ARM PAIN, FALL [id number] 04/14/2015 11:25:00 04/14/2015 12:35:00 DIS Emergency TIGIST DAVALOS APRN [facility] ER R KNEE PAIN [id number] 04/02/2015 13:14:00 04/02/2015 23:59:59 CLS Outpatient LA MASTERS, VANI Rhodes [facility] RAD RT KNEE PAIN [id number] 05/05/2013 15:04:00 05/05/2013 23:59:59 CLS Outpatient [id number] 07/10/2010 07:44:00 Document Registration [id number] 07/07/2010 10:49:00 Document Registration [id number] 06/08/2010 21:45:00 Document Registration [id number] 04/14/2015 11:26:13 ACT Document Registration
[2018-04-12 23:16] LABS: TSH (THYROID ANALYZER) 2.63 UIU/ML (0.35-4.94)
[2018-04-12 23:32] LABS: BILIRUBIN,URINE NEGATIVE (NEGATIVE); CLARITY,URINE CLEAR; COLOR,URINE YELLOW; GLUCOSE, URINE (UA) NEGATIVE (NEGATIVE); KETONES,URINE NEGATIVE (NEGATIVE); LEUKOCYTE ESTERASE ,URINE NEGATIVE (NEGATIVE); NITRITE,URINE NEGATIVE (NEGATIVE); PH,URINE 6 (5-9); PROTEIN,URINE NEGATIVE (NEGATIVE); UROBILINOGEN,URINE NORMAL (NORMAL)
[2018-04-12 23:40] LABS: BACTERIA,URINE NEGATIVE /HPF; RBC,URINE RARE /HPF; SQUAMOUS EPITHELIAL CELL,UR RARE /HPF
[2018-04-12] MEDS ORDERED: RX-ONDANSETRON 4 MG ODT (ZOFRAN) PPK #4 PO STA (23:46)
[2018-04-13] MEDS ORDERED: RX-ONDANSETRON 4 MG ODT (ZOFRAN) PPK #4 ONE (00:02)
[2018-04-13 00:23] VITALS: BP 120/62
--- NOTE | 2018-04-13 06:24 | Diagnostic Imaging Report ---
INDICATION: Fall. Elbow pain. Hematoma on the left. FINDINGS: Bilateral elbows. No fractures are seen. There are no dislocations. Articulating surfaces are smooth. There is no evidence of joint effusion. IMPRESSION: Normal bilateral elbows. Dictated by: Dictated on workstation # [id number]
--- NOTE | 2018-04-13 06:42 | Diagnostic Imaging Report ---
INDICATION: Fall with swelling and bruise. Left forearm. FINDINGS: There is soft tissue swelling over the dorsal aspect of the soft tissues proximally. The radius and ulna are intact. The wrist and elbow are in good alignment. IMPRESSION: Soft tissue swelling otherwise negative left forearm. Dictated by: Dictated on workstation # [id number]
--- NOTE | 2018-04-13 06:49 | Diagnostic Imaging Report ---
PROCEDURE: CT head, face, and cervical spine without contrast. TECHNIQUE: Multiple contiguous axial images were obtained through the head, neck, and facial bones without the use of intravenous contrast. Sagittal and coronal reformations through the cervical spine and facial bones were also performed. INDICATION: Headache and pain to nose. Comparison CT head 06/08/2010. FINDINGS: CT head without: There is no intracranial hemorrhage. There is generalized cortical atrophy. Ventricles are not dilated. There is no mass effect. Basal cisterns are clear. CP angles are normal. Mastoid air cells are clear. No evidence of calvarial fracture. IMPRESSION: Generalized cortical atrophy with no acute intracranial abnormality. CT facial bones: Paranasal sinuses are well-aerated. There is no evidence of air-fluid level. There are no facial fractures demonstrated. Mild deviation nasal septum to the left. Nasal turbinates appear normal. No evidence of nasal bone fracture. IMPRESSION: Negative CT facial bones. CT cervical spine: Good alignment of vertebral bodies. Body height is well maintained. There is degenerative cervical disc and facet disease from C3 through C7. There is loss of disc space height. Hypertrophic lipping of the endplates noted throughout. No fracture. The surrounding soft tissues appear normal. IMPRESSION: Diffuse degenerative cervical disc disease with no acute abnormality. Dictated by: Dictated on workstation # [id number]
--- NOTE | 2018-04-13 06:52 | Diagnostic Imaging Report ---
INDICATION: Fall. FINDINGS: Portable chest shows the lungs to be well-aerated. There are no infiltrates. No pneumothorax or pleural effusions. Heart is not enlarged. There is no pulmonary edema. No hilar adenopathy. No bony abnormalities demonstrated. IMPRESSION: Normal portable chest. Dictated by: Dictated on workstation # [id number]
== END 2018-04-13 00:23 | disposition home or self-care (01) ==
LOC: EDUNIT# 22:03 → ER 22:04
DX: S00.33XA Contusion of nose, initial encounter (principal); S50.01XA Contusion of right elbow, initial encounter; S50.02XA Contusion of left elbow, initial encounter; R55 Syncope and collapse; E86.0 Dehydration; R11.2 Nausea with vomiting, unspecified; R19.7 Diarrhea, unspecified; E73.9 Lactose intolerance, unspecified; I10 Essential (primary) hypertension; K21.9 Gastro-esophageal reflux disease without esophagitis; Z87.19 Personal history of other diseases of the digestive system; Z87.891 Personal history of nicotine dependence; Z86.73 Personal history of transient ischemic attack (TIA), and cerebral infarction without residual deficits; Z23 Encounter for immunization; W19.XXXA Unspecified fall, initial encounter
CPT/HCPCS: 36415; 70450; 70486; 71045; 72125; 73090; 80053; 81000; 82150; 83690; 84443; 84484; 85007; 85027; 90471; 90715; 93005; 93041; 96360; 96361

== ENCOUNTER 2021-07-10 07:39 | Inpatient (IN) | payer MEDICARE ==
[~2021-07-10] VITALS: Ht 167 cm; Wt 81.4 kg
[~2021-07-10 07:39] MED LIST changes: -BISO10TA PO; +BISO10TA6 PO; -LISI-556 PO; +LISI-729 PO; -LYSI600T PO; -OMEP40CA36 PO; +OMEP40CA6 PO; +[UNRECOGNIZED DRUG - CODE] PO
[2021-07-10] MEDS ORDERED: ACETAMINOPHEN 500 MG TAB (TYLENOL) PO ONE (08:15)
[2021-07-10] MEDS ORDERED: ONDANSETRON 4 MG/2 ML (SDV) Z0FRAN IVP ONE (08:15)
[2021-07-10 08:27] LABS: BASOPHILS % (AUTO) 0 % (0-10); EOSINOPHILS % (AUTO) 0 % (0-10); HEMATOCRIT 33 % (40-54); HEMOGLOBIN 10.9 g/dL (13.3-17.7); LYMPHOCYTES # (AUTO) 0.6 10^3/uL (1.0-4.0); LYMPHOCYTES % (AUTO) 11 % (12-44); MEAN CORPUSCULAR HEMOGLOBIN 28 pg (25-34); MEAN CORPUSCULAR HGB CONC 33 g/dL (32-36); MEAN CORPUSCULAR VOLUME 83 fL (80-99); MEAN PLATELET VOLUME 11.3 fL (9.0-12.2); MONOCYTES # (AUTO) 0.3 10^3/uL (0.0-1.0); MONOCYTES % (AUTO) 5 % (0-12); NEUTROPHILS # (AUTO) 4.8 10^3/uL (1.8-7.8); NEUTROPHILS % (AUTO) 84 % (42-75); PLATELET COUNT 168 10^3/uL (130-400); WHITE BLOOD COUNT 5.7 10^3/uL (4.3-11.0)
[2021-07-10 08:32] LABS: ALBUMIN 3.8 GM/DL (3.2-4.5); INR 0.9 (0.8-1.4); POTASSIUM 3.5 MMOL/L (3.6-5.0); PROTHROMBIN TIME PATIENT 12.7 SEC (12.2-14.7)
[2021-07-10 08:33] LABS: CALCIUM 8.6 MG/DL (8.5-10.1)
[2021-07-10 08:35] LABS: TOTAL PROTEIN 7.1 GM/DL (6.4-8.2)
[2021-07-10 08:36] LABS: BILIRUBIN,TOTAL 0.6 MG/DL (0.1-1.0)
[2021-07-10 08:38] LABS: CREATININE SERUM 1.31 MG/DL (0.60-1.30)
--- NOTE | 2021-07-10 09:08 | Diagnostic Imaging Report ---
Indication: COVID positive patient, sepsis. Frontal chest obtained at 0852 a.m. and compared to 04/12/2018 There is cardiomegaly. There is a prominent hiatal hernia. There is some patchy infiltrate in the left infrahilar region and base with some mild right perihilar infiltrate. These findings are new compared to the prior study. There is no pneumothorax or pleural fluid. Impression: New bilateral infiltrates as described above, compatible with pneumonia. Report was faxed to [facility] by bharat at 9:08am. Dictated by: Dictated on workstation # [id number]
[2021-07-10] MEDS ORDERED: CEFEPIME INJECTION 1,000 MG in WATER (STERILE) FOR INJECTION 10 ML IV ONE (09:45)
--- NOTE | 2021-07-10 09:58 | ED General ---
General Chief Complaint: Cough/Cold/Flu Symptoms Stated Complaint: COVID SYMPTOMS Nursing Triage Note: PT TO ROOM 9 PER W/C PT CO OF FEVERS, COUGH, N/V/D, WEAKNESS SINCE 07/03/21. PT WAS EXPOSED TO COVID ON 06/26/21, VACCINATED ON 07/02/21. STATES HAS BEEN SICK SINCE. Source of Information: Patient Exam Limitations: No Limitations History of Present Illness Date Seen by Provider: Jul 10, 2021 Time Seen by Provider: 07:52 Initial Comments This 81-year-old gentleman presents to the emergency room with complaints of weakness and cough. He vomited once yesterday and had some diarrhea today. He reports having had a known Covid exposure on June 26. He received the first dose of his Covid vaccination on July 02. Since then he has been feeling progressively worse. Vital signs are stable on arrival. He does not feel short of breath. He has had some mild stomach irritation. He denies pain and states his stomach "just does not feel good". He has lost his appetite. Allergies and Home Medications Allergies Coded Allergies: No Known Drug Allergies (Unverified , 06/08/10) Home Medications Bisoprolol Fumarate 10 Mg Tablet, 10 MG PO HS, (Reported) Garlic 1 Each Tablet, 1 EACH PO DAILY, (Reported) Gluc 2Kcl/Chondr/Charles Hy/Hy AC 1 Each Capsule, 1 EACH PO BID, (Reported) Hydrochlorothiazide 25 Mg Tablet, 25 MG PO DAILY, (Reported) Lisinopril 5 Mg Tablet, 5 MG PO DAILY, (Reported) Lysine 600 Mg Tablet, 600 MG PO BID, (Reported) Mv,Minerals/FA/Lycopene/Ginkgo 1 Each Tablet, 1 EACH PO DAILY, (Reported) Omeprazole 40 Mg Capsule.dr, 40 MG PO DAILY, (Reported) Potassium Chloride 20 Meq Tablet.er, 20 MEQ PO DAILY, (Reported) Patient Home Medication List Home Medication List Reviewed: Yes Review of Systems Review of Systems Constitutional: see HPI Respiratory: see HPI Cardiovascular: no symptoms reported Gastrointestinal: see HPI Genitourinary: no symptoms reported Musculoskeletal: no symptoms reported Skin: no symptoms reported Psychiatric/Neurological: No Symptoms Reported Hematologic/Lymphatic: No Symptoms Reported Immunological/Allergic: no symptoms reported Past Ajimfin-Echplu-Rkxwxv Hx Patient Social History Tobacco Use?: No Smoking Status: Former Smoker Substance use?: No Alcohol Use?: No Pt feels they are or have been: No Immunizations Up To Date First/Initial COVID19 Vaccinat: MODERNA 07/02/21 Seasonal Allergies Seasonal Allergies: Yes Past Medical History Surgeries: Yes (CIRCUMCISION, R KNEE) Eye Surgery, Orthopedic Respiratory: No Cardiac: Yes Hypertension Neurological: Yes TIA Reproductive Disorders: No Genitourinary: No Gastrointestinal: Yes Gastroesophageal Reflux, Hiatal Hernia Musculoskeletal: Yes (CHRONIC NECK PAIN) Arthritis, Chronic Back Pain Endocrine: No HEENT: Yes (GLASSES) Cataract Cancer: No Psychosocial: No Integumentary: No Blood Disorders: No Physical Exam-Suspected Sepsis Physical Exam Vital Signs Vital Signs - First Documented 07/10/21 07/10/21 07:40 08:20 Temp 39.2 Pulse 74 Resp 36 B/P (MAP) 145/62 (89) Pulse Ox 93 O2 Delivery Room Air O2 Flow Rate 2.50 Capillary Refill : Less Than 3 Seconds Blood Pressure Mean: 89 Height, Weight, BMI Height: 5'6.00" Weight: 165lbs. 0.0oz. 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 Norm as Tested Skin: normal color, warm/dry Focused Exam Lactate Level 07/10/21 07:55: Lactic Acid Level 1.77 Lactic Acid Level Progress/Results/Core Measures Suspected Sepsis SIRS Temperature: Pulse: 74 Respiratory Rate: 36 Laboratory Tests 07/10/21 07:55: White Blood Count 5.7 Blood Pressure 145 /62 Mean: 89 07/10/21 07:55: Lactic Acid Level 1.77 Laboratory Tests 07/10/21 07:55: Creatinine 1.31H, INR Comment 0.9, Platelet Count 168, Total Bilirubin 0.6 Results/Orders Lab Results Laboratory Tests Test 07/10/21 07:45 07/10/21 07:55 07/10/21 11:33 Range/Units Influenza Type A (RT-PCR) Not Detected Not Detecte Influenza Type B (RT-PCR) Not Detected Not Detecte SARS-CoV-2 RNA (RT-PCR) Detected H Not Detecte White Blood Count 5.7 4.3-11.0 10^3/uL Red Blood Count 3.94 L 4.30-5.52 10^6/uL Hemoglobin 10.9 L 13.3-17.7 g/dL Hematocrit 33 L 40-54 % Mean Corpuscular Volume 83 80-99 fL Mean Corpuscular Hemoglobin 28 25-34 pg Mean Corpuscular Hemoglobin Concent 33 32-36 g/dL Red Cell Distribution Width 14.5 10.0-14.5 % Platelet Count 168 130-400 10^3/uL Mean Platelet Volume 11.3 9.0-12.2 fL Immature Granulocyte % (Auto) 0 % Neutrophils (%) (Auto) 84 H 42-75 % Lymphocytes (%) (Auto) 11 L 12-44 % Monocytes (%) (Auto) 5 0-12 % Eosinophils (%) (Auto) 0 0-10 % Basophils (%) (Auto) 0 0-10 % Neutrophils # (Auto) 4.8 1.8-7.8 10^3/uL Lymphocytes # (Auto) 0.6 L 1.0-4.0 10^3/uL Monocytes # (Auto) 0.3 0.0-1.0 10^3/uL Eosinophils # (Auto) 0.0 0.0-0.3 10^3/uL Basophils # (Auto) 0.0 0.0-0.1 10^3/uL Immature Granulocyte # (Auto) 0.0 0.0-0.1 10^3/uL Prothrombin Time 12.7 12.2-14.7 SEC INR Comment 0.9 0.8-1.4 Activated Partial Thromboplast Time 39 H 24-35 SEC D-Dimer 0.75 H 0.00-0.49 UG/ML Sodium Level 128 L 135-145 MMOL/L Potassium Level 3.5 L 3.6-5.0 MMOL/L Chloride Level 92 L 98-107 MMOL/L Carbon Dioxide Level 23 21-32 MMOL/L Anion Gap 13 5-14 MMOL/L Blood Urea Nitrogen 11 7-18 MG/DL Creatinine 1.31 H 0.60-1.30 MG/DL Estimat Glomerular Filtration Rate 53 BUN/Creatinine Ratio 8 Glucose Level 122 H 70-105 MG/DL Lactic Acid Level 1.77 0.50-2.00 MMOL/L Calcium Level 8.6 8.5-10.1 MG/DL Corrected Calcium 8.8 8.5-10.1 MG/DL Total Bilirubin 0.6 0.1-1.0 MG/DL Aspartate Amino Transf (AST/SGOT) 60 H 5-34 U/L Alanine Aminotransferase (ALT/SGPT) 38 0-55 U/L Alkaline Phosphatase 65 40-136 U/L C-Reactive Protein High Sensitivity 11.45 H 0.00-0.50 MG/DL Total Protein 7.1 6.4-8.2 GM/DL Albumin 3.8 3.2-4.5 GM/DL Procalcitonin 0.28 H <0.10 NG/ML Urine Color YELLOW Urine Clarity CLEAR Urine pH 6.0 5-9 Urine Specific [place] <=1.005 1.016-1.022 Urine Protein 1+ H NEGATIVE Urine Glucose (UA) NEGATIVE NEGATIVE Urine Ketones NEGATIVE NEGATIVE Urine Nitrite NEGATIVE NEGATIVE Urine Bilirubin NEGATIVE NEGATIVE Urine Urobilinogen 0.2 < = 1.0 MG/DL Urine Leukocyte Esterase NEGATIVE NEGATIVE Urine RBC (Auto) 1+ H NEGATIVE Urine RBC 0-2 /HPF Urine WBC RARE /HPF Urine Squamous Epithelial Cells RARE /HPF Urine Crystals NONE /LPF Urine Bacteria NEGATIVE /HPF Urine Casts NONE /LPF Urine Mucus NEGATIVE /LPF Urine Culture Indicated NO My Orders Orders - BETSEY STINSON MD Covid 19 Inhouse Test (07/10/21 07:52) Influenza A And B By Pcr (07/10/21 07:52) Acetaminophen Tablet (Tylenol Tablet) (07/10/21 08:15) Ondansetron Injection (Zofran Injectio (07/10/21 08:15) Cbc With Automated Diff (07/10/21 08:19) Comprehensive Metabolic Panel (07/10/21 08:19) Blood Culture (07/10/21 08:19) Sputum Culture (07/10/21 08:19) Urinalysis (07/10/21 08:19) Urine Culture (07/10/21 08:19) Protime With Inr (07/10/21 08:19) Partial Thromboplastin Time (07/10/21 08:19) Chest 1 View, Ap/Pa Only (07/10/21 08:19) Ed Iv/Invasive Line Start (07/10/21 08:19) Vital Signs Adult Sepsis Patie Q15M (07/10/21 08:19) O2 (07/10/21 08:19) Remove Rings In Anticipation O (07/10/21 08:19) Lactic Acid Analyzer (07/10/21 08:19) Procalcitonin (Pct) (07/10/21 08:19) Hs C Reactive Protein (07/10/21 08:19) Dexamethasone Injection (Decadron Inje (07/10/21 09:30) Fibrin Degradation Products (07/10/21 09:38) Cefepime Injection (Maxipime Injection) (07/10/21 09:45) Ct Angio Chest W (07/10/21 09:59) Ns Iv 500 Ml (Sodium Chloride 0.9%) (07/10/21 10:00) Iohexol Injection (Omnipaque 350 Mg/Ml 1 (07/10/21 10:15) Received Contrast (Hold Metformin- Contr (07/10/21 10:15) Ns (Ivpb) (Sodium Chloride 0.9% Ivpb Bag (07/10/21 10:15) Sodium Chloride Flush (Catheter Flush Sy (07/10/21 10:15) Medications Given in ED Current Medications Medications Dose Ordered Sig/Juan Route Start Time Stop Time Status Last Admin Dose Admin Acetaminophen 1,000 mg ONCE ONCE PO 07/10/21 08:15 07/10/21 08:16 DC 07/10/21 08:19 1,000 MG Cefepime HCl 1000 mg/Sterile Water 10 ml @ 200 mls/hr ONCE ONCE IV 07/10/21 09:45 07/10/21 09:47 DC 07/10/21 10:18 200 MLS/HR Dexamethasone Sodium Phosphate 6 mg ONCE ONCE IV 07/10/21 09:30 07/10/21 09:31 DC 07/10/21 10:18 6 MG Ondansetron HCl 4 mg ONCE ONCE IVP 07/10/21 08:15 07/10/21 08:16 DC 07/10/21 08:18 4 MG Sodium Chloride 500 ml @ 0 mls/hr Q0M ONCE IV 07/10/21 10:00 07/10/21 10:01 DC 07/10/21 10:19 500 MLS/HR Vital Signs/I&O 07/10/21 07/10/21 07/10/21 07:40 08:20 11:40 Temp 39.2 37.4 Pulse 74 68 Resp 36 26 B/P (MAP) 145/62 (89) 133/57 Pulse Ox 93 88 93 O2 Delivery Room Air Nasal Cannula O2 Flow Rate 2.50 2.50 Capillary Refill : Less Than 3 Seconds Blood Pressure Mean: 89 Progress Note #1: Time: 09:57 Progress Note Patient was seen and examined shortly after arrival. Septic work-up was pursued. COVID-19 test resulted positive. Patient sat in the room he eventuall y developed hypoxia with oxygen saturation down to 88% on room air. This was resuscitated with nasal cannula support. Dexamethasone was administered. I discussed the case with Dr. Raman we agreed this patient should receive antibiotics. After blood cultures were obtained cefepime was started. I discussed CODE STATUS with the patient and he would like to remain full code. Since he became hypoxic, D-dimer was added to the work-up. D-dimer just resulted. We will obtain CT angiogram before going upstairs. Progress Note #2: Time: 12:17 Progress Note No evidence of PE on the CT scan. Diagnostic Imaging Diagonstic Imaging: Xray Plain Films/CT/US/NM/MRI: chest Comments NAME: [facility] REC#: [id number] PT STATUS: REG ER : 1940 PHYSICIAN: BETSEY STINSON MD ADMIT DATE: 07/10/21/ER Draft Date of Exam:07/10/21 CHEST 1 VIEW, AP/PA ONLY Indication: COVID positive patient, sepsis. Frontal chest obtained at 0852 a.m. and compared to 04/12/2018 There is cardiomegaly. There is a prominent hiatal hernia. There is some patchy infiltrate in the left infrahilar region and base with some mild right perihilar infiltrate. These findings are new compared to the prior study. There is no pneumothorax or pleural fluid. Impression: New bilateral infiltrates as described above, compatible with pneumonia. Report was faxed to [facility] Infection Control by bharat at 9:08am. Dictated on workstation # [id number] Dict: 07/10/21 0904 Trans: 07/10/21 0908 [facility], [place] [id number] Interpreted by: UMU GÓMEZ MD Diagonstic Imaging: CT Plain Films/CT/US/NM/MRI: chest Comments NAME: [facility] REC#: [id number] PT STATUS: ADM IN : 1940 PHYSICIAN: BETSEY STINSON MD ADMIT DATE: 07/10/21 Draft Date of Exam:07/10/21 CT ANGIO CHEST W PROCEDURE: CT angiography of the chest with contrast. TECHNIQUE: Multiple contiguous axial images were obtained through the chest after uneventful bolus administration of intravenous contrast. 3D reconstructed CTA MIP acquisitions were also performed. Auto Exposure Controls were utilized during the CT exam to meet ALARA standards for radiation dose reduction. INDICATION: Positive COVID-19. COMPARISON: No prior studies are available for comparison. FINDINGS: Evaluation of the pulmonary arterial system is without evidence of thromboembolism. No definite filling defects are seen within central, lobar, or segmental branches. The thoracic aorta is normal in caliber. There is no dissection. No pericardial or pleural fluid is identified. Patient does have a large hiatal hernia. No axillary lymphadenopathy is seen. No mediastinal or hilar lymphadenopathy is detected. Parenchymal evaluation does show some patchy ground-glass infiltrates in bilateral upper lobes as well as bilateral lower lobes, suggestive of COVID-19 pneumonia. Upper abdomen demonstrates a large stone within the gallbladder. IMPRESSION: 1. No evidence of pulmonary embolism or thoracic aortic dissection. 2. Bilateral patchy ground-glass pulmonary infiltrates consistent with COVID-19 pneumonia. 3. Large hiatal hernia. 4. Cholelithiasis. Dictated on workstation # [id number] Dict: 07/10/21 1123 Trans: 07/10/21 1129 [id number] Interpreted by: HORACIO CEJA MD Reviewed: Reviewed by Me Departure Communication (Admissions) Time/Spoke to Admitting Phy: 09:35 Dr. Raman Impression Primary Impression: Pneumonia due to COVID-19 virus Additional Impressions: Hypoxia Hyponatremia Disposition: ADMITTED INPATIENT Condition: Improved Admissions Decision to Admit Reason: Admit from ER (General) Decision to Admit/Date: Jul 10, 2021 Time/Decision to Admit Time: 09:15 Departure-Patient Inst. Referrals: THADDEUS RAMAN MD (PCP/Family) Primary Care Physician BETSEY STINSON MD Jul 10, 2021 09:58
[2021-07-10] MEDS ORDERED: NS IV 500 ML 500 ML IV ONE (10:00)
[2021-07-10] MEDS ORDERED: NS 100 ML (IVPB) BAG IV ONE (10:15)
[2021-07-10] MEDS ORDERED: IOHEXOL 350 MG/ML 100 ML (OMNIPAQUE 350) VIAL IV ONE (10:15)
[2021-07-10] MEDS ORDERED: CATHETER FLUSH 10 ML SYR IV PRN (10:15)
[2021-07-10] MEDS ORDERED: HOLD METFORMIN - RECEIVED CONTRAST 20 ML VIAL IV SCH (10:15)
--- NOTE | 2021-07-10 11:29 | Diagnostic Imaging Report ---
PROCEDURE: CT angiography of the chest with contrast. TECHNIQUE: Multiple contiguous axial images were obtained through the chest after uneventful bolus administration of intravenous contrast. 3D reconstructed CTA MIP acquisitions were also performed. Auto Exposure Controls were utilized during the CT exam to meet ALARA standards for radiation dose reduction. INDICATION: Positive COVID-19. COMPARISON: No prior studies are available for comparison. FINDINGS: Evaluation of the pulmonary arterial system is without evidence of thromboembolism. No definite filling defects are seen within central, lobar, or segmental branches. The thoracic aorta is normal in caliber. There is no dissection. No pericardial or pleural fluid is identified. Patient does have a large hiatal hernia. No axillary lymphadenopathy is seen. No mediastinal or hilar lymphadenopathy is detected. Parenchymal evaluation does show some patchy ground-glass infiltrates in bilateral upper lobes as well as bilateral lower lobes, suggestive of COVID-19 pneumonia. Upper abdomen demonstrates a large stone within the gallbladder. IMPRESSION: 1. No evidence of pulmonary embolism or thoracic aortic dissection. 2. Bilateral patchy ground-glass pulmonary infiltrates consistent with COVID-19 pneumonia. 3. Large hiatal hernia. 4. Cholelithiasis. Dictated by: Dictated on workstation # [id number]
[2021-07-10 11:56] LABS: BILIRUBIN,URINE NEGATIVE (NEGATIVE); CLARITY,URINE CLEAR; COLOR,URINE YELLOW; GLUCOSE, URINE (UA) NEGATIVE (NEGATIVE); KETONES,URINE NEGATIVE (NEGATIVE); LEUKOCYTE ESTERASE ,URINE NEGATIVE (NEGATIVE); NITRITE,URINE NEGATIVE (NEGATIVE); PROTEIN,URINE 1+ (NEGATIVE)
[2021-07-10 12:08] LABS: BACTERIA,URINE NEGATIVE /HPF; RBC,URINE 0-2 /HPF; SQUAMOUS EPITHELIAL CELL,UR RARE /HPF; WBC,URINE RARE /HPF
[2021-07-10 12:19] VITALS: BP 132/63
[2021-07-10] MEDS ORDERED: ONDANSETRON 4 MG/2 ML (SDV) Z0FRAN IV PRN (13:45)
[2021-07-10] MEDS ORDERED: guaiFENesin SYRUP 100 MG/5 ML 10 ML (ROBITUSSIN SF) PO PRN (13:45)
[2021-07-10] MEDS ORDERED: VANCOMYCIN 1500 MG/NS 500 ML IVPB IV NR ×2 (14:00)
[2021-07-10 14:37] VITALS: BP 145/62
[2021-07-10] MEDS ORDERED: ACET-2267 PO (14:43)
[2021-07-10] MEDS ORDERED: BISO-3 PO (14:43)
[2021-07-10] MEDS ORDERED: CHOL-34 PO (14:43)
[2021-07-10] MEDS ORDERED: CALC600T91 PO (14:43)
[2021-07-10] MEDS ORDERED: POTA20TA15 PO (14:43)
[2021-07-10] MEDS ORDERED: GLUC-219 PO (14:43)
[2021-07-10] MEDS ORDERED: RT-ALBUTEROL HFA 8.5 GM INHALER IH PRN (14:45)
[2021-07-10] MEDS: NS IV 1000 ML 1,000 ML IV SCH ×2 (15:07→20:51)
[2021-07-10] MEDS: CEFEPIME 1,000 MG/SWFI 10 ML IV PUSH IV SCH ×4 (16:52→22:04)
[2021-07-10 17:00] VITALS: BP 115/59
--- NOTE | 2021-07-10 17:27 | History & Physicial ---
History of Present Illness History of Present Illness Reason for visit/HPI 81-year-old male well-known to me presents to emergency department with weakness and cough. He was concerned about coronavirus infection as he was exposed on June 26. He did receive first Covid vaccination on July 02, 2021. He does not admit to any dyspnea but he does have some cough that is not productive. He has loss of appetite and just does not feel very well Date of Admission Jul 10, 2021 at 10:11 Date Seen by a Provider: Jul 10, 2021 Time Seen by a Provider: 17:30 I consulted on this patient on 07/10/21 17:24 Attending Physician Erasmo Raman MD Admitting Physician Erasmo Raman MD Consult Allergies and Home Medications Allergies Coded Allergies: No Known Drug Allergies (Unverified , 06/08/10) Home Medications Acetaminophen 500 Mg Tablet, 1,000 MG PO Q8H PRN for PAIN-MILD (1-4), (Reported) Last Action: Reviewed Bisoprolol Fumarate/Hctz 1 Each Tablet, 1 EA PO HS, (Reported) Last Action: Reviewed Calcium Carbonate 600 Mg Tablet, 600 MG PO DAILY, (Reported) Last Action: Reviewed Cholecalciferol (Vitamin D3) 25 Mcg Tablet, 25 MCG PO DAILY, (Reported) Last Action: Reviewed Glucosamine/D3/Boswellia Karyn 1 Each Tablet, 1 EACH PO BID, (Reported) Last Action: Reviewed Hydrochlorothiazide 25 Mg Tablet, 25 MG PO DAILY, (Reported) Last Action: Reviewed Lisinopril 5 Mg Tablet, 5 MG PO DAILY, (Reported) Last Action: Reviewed Lysine 600 Mg Tablet, 600 MG PO BID, (Reported) Last Action: Reviewed Mv,Minerals/FA/Lycopene/Ginkgo 1 Each Tablet, 1 EACH PO DAILY, (Reported) Last Action: Reviewed Potassium Chloride 20 Meq Tab.er.prt, 20 MEQ PO BID, (Reported) Last Action: Reviewed Patient Home Medication List Home Medication List Reviewed: Yes Past Brtbtot-Bvwugl-Yjbyzx Hx Patient Social History Marrital Status: Smoking Status: Former Smoker Former Smoker, Quit: Nov 02, 1985 Recent Hopitalizations: No Have you traveled recently?: No Alcohol Use?: No Pt feels they are or have been: No Immunizations Up To Date Date of Influenza Vaccine: Sep 06, 2017 Seasonal Allergies Seasonal Allergies: Yes Surgeries Yes (CIRCUMCISION, R KNEE) Eye Surgery, Orthopedic Respiratory No Cardiovascular Yes Hypertension Neurological Yes TIA Reproductive System Hx Reproductive Disorders: No Genitourinary No Gastrointestinal Yes Gastroesophageal Reflux, Hiatal Hernia Musculoskeletal Yes (CHRONIC NECK PAIN) Arthritis, Chronic Back Pain Endocrine History of Endocrine Disorders: No HEENT History of HEENT Disorders: Yes (GLASSES) HEENT Disorders: Cataract Cancer No Psychosocial History of Psychiatric Problem: No Integumentary History of Skin or Integumenta: No Blood Transfusions History of Blood Disorders: No Review of Systems Constitutional: see HPI Physical Exam Vital Signs Vital Signs - First Documented 07/10/21 07/10/21 07/10/21 07:40 08:20 14:37 Temp 39.2 Pulse 74 Resp 36 B/P (MAP) 145/62 (89) Pulse Ox 93 O2 Delivery Room Air O2 Flow Rate 2.50 FiO2 28 Capillary Refill : Less Than 3 Seconds Height, Weight, BMI Height: 5'6.00" Weight: 165lbs. 0.0oz. 74.918617xc; 26.89 BMI Method:Stated General Appearance: No Apparent Distress Neck: Full Range of Motion Respiratory: Lungs Clear, Decreased Breath Sounds (In the bases) Cardiovascular: Regular Rate, Rhythm Gastrointestinal: Soft Back: Normal Inspection Extremity: Normal Capillary Refill Comments [facility] [place] [place] NAME: [facility] REC#: [id number] PT STATUS: ADM IN : 1940 PHYSICIAN: BETSEY STINSON MD ADMIT DATE: 07/10/21 Signed Date of Exam:07/10/21 CHEST 1 VIEW, AP/PA ONLY Indication: COVID positive patient, sepsis. Frontal chest obtained at 0852 a.m. and compared to 04/12/2018 There is cardiomegaly. There is a prominent hiatal hernia. There is some patchy infiltrate in the left infrahilar region and base with some mild right perihilar infiltrate. These findings are new compared to the prior study. There is no pneumothorax or pleural fluid. Impression: New bilateral infiltrates as described above, compatible with pneumonia. Report was faxed to [facility] by bharat at 9:08am. Dictated by: Dictated on workstation # [id number] Dict: 07/10/21 0904 Trans: 07/10/21 1218 [facility] [id number] Interpreted by: UMU GÓMEZ MD Electronically signed by: UMU GÓMEZ MD 07/10/21 1218 Assessment/Plan Assessment and Plan 1. Bilateral pneumonia -Patient to be initiated on cefepime as well as vancomycin. 2. Coronavirus or COVID-19 infection -Respiratory care to keep his oxygen level in the mid 90 percentile 3. Dehydration -IV fluid rehydration 4. Hyponatremia -Monitor electrolytes Admission Diagnosis 1. Bilateral pneumonia 2. Coronavirus or COVID-19 infection 3. Dehydration 4. Hyponatremia Admission Status: Inpatient Order (span 2 midnights) Reason for Inpatient Admission: 1. IV antibiotics and respiratory support ERASMO RAMAN MD Jul 10, 2021 17:27
[2021-07-10] MEDS: RT-ALBUTEROL HFA 8.5 GM INHALER IH SCH ×2 (19:41→22:33)
[2021-07-10 19:46] VITALS: BP 112/49
[2021-07-10 23:15] VITALS: BP 102/54
[2021-07-11] VITALS (16 sets, daily range): BP systolic 92–160; BP diastolic 54–76
[2021-07-11] MEDS: RT-ALBUTEROL HFA 8.5 GM INHALER IH SCH ×7 (02:10→22:22)
[2021-07-11] MEDS: CEFEPIME 1,000 MG/SWFI 10 ML IV PUSH IV SCH ×6 (03:39→19:26)
[2021-07-11] MEDS: NS IV 1000 ML 1,000 ML IV SCH ×4 (03:39→23:26)
[2021-07-11] MEDS: ACETAMINOPHEN 325 MG TABLET PO PRN (03:40)
[2021-07-11 06:31] LABS: BASOPHILS % (AUTO) 0 % (0-10); EOSINOPHILS % (AUTO) 0 % (0-10); HEMATOCRIT 28 % (40-54); LYMPHOCYTES # (AUTO) 0.6 10^3/uL (1.0-4.0); LYMPHOCYTES % (AUTO) 10 % (12-44); MEAN CORPUSCULAR HEMOGLOBIN 28 pg (25-34); MEAN CORPUSCULAR HGB CONC 32 g/dL (32-36); MEAN CORPUSCULAR VOLUME 87 fL (80-99); MEAN PLATELET VOLUME 11.1 fL (9.0-12.2); MONOCYTES # (AUTO) 0.3 10^3/uL (0.0-1.0); MONOCYTES % (AUTO) 5 % (0-12); NEUTROPHILS # (AUTO) 5.5 10^3/uL (1.8-7.8); NEUTROPHILS % (AUTO) 85 % (42-75); PLATELET COUNT 153 10^3/uL (130-400); WHITE BLOOD COUNT 6.5 10^3/uL (4.3-11.0)
[2021-07-11 06:41] LABS: POTASSIUM 3.6 MMOL/L (3.6-5.0)
[2021-07-11 06:42] LABS: CALCIUM 7.5 MG/DL (8.5-10.1)
[2021-07-11 06:43] LABS: TOTAL PROTEIN 5.6 GM/DL (6.4-8.2)
[2021-07-11 06:45] LABS: BILIRUBIN,TOTAL 0.3 MG/DL (0.1-1.0)
[2021-07-11 06:47] LABS: CREATININE SERUM 1.43 MG/DL (0.60-1.30)
--- NOTE | 2021-07-11 07:06 | Progress Note ---
Subjective Date Seen by a Provider: Jul 11, 2021 Time Seen by a Provider: 06:35 Subjective/Events-last exam Patient communicating well this morning. He does not seem to be extremely short of breath. He did eat a fair amount he stated yesterday evening for dinner. Focused Exam Lactate Level 07/10/21 07:55: Lactic Acid Level 1.77 Objective Exam Vital Signs Date Time Temp Pulse Resp B/P (MAP) Pulse Ox O2 Delivery O2 Flow Rate FiO2 07/11/21 05:44 37.4 69 16 94 Vapotherm 20.00 70.00 07/11/21 04:40 37.4 07/11/21 03:53 93 Vapotherm 20.00 70 07/11/21 03:40 37.9 07/11/21 03:27 37.9 92 20 98/54 (69) 92 Nasal Cannula 5.00 07/11/21 02:10 3.00 07/11/21 01:00 75 07/10/21 23:15 36.9 86 20 102/54 (70) 91 Nasal Cannula 2.00 07/10/21 22:33 3.00 07/10/21 22:18 68 07/10/21 19:46 37.7 84 20 112/49 (70) 95 Nasal Cannula 2.00 07/10/21 19:42 93 Nasal Cannula 3.00 07/10/21 19:30 Nasal Cannula 2.50 07/10/21 17:00 37.4 63 19 115/59 (77) 95 Nasal Cannula 2.00 07/10/21 15:39 Nasal Cannula 2.50 07/10/21 14:37 39.2 74 93 28 07/10/21 12:19 36.5 64 20 132/63 (86) 95 Nasal Cannula 2.50 07/10/21 11:40 37.4 68 26 133/57 93 2.50 07/10/21 08:20 88 Nasal Cannula 2.50 07/10/21 07:40 39.2 74 36 145/62 (89) 93 Room Air I & O 07/11/21 07:00 Intake Total 2355 ml Output Total 650 ml Balance 1705 ml Capillary Refill : Less Than 3 Seconds General Appearance: No Apparent Distress Respiratory: Lungs Clear, Decreased Breath Sounds (In the bases) Cardiovascular: Regular Rate, Rhythm Gastrointestinal: soft (But firm to the touch) Extremity: Normal Capillary Refill Neurologic/Psychiatric: Alert, Oriented x3 Skin: Cool Results Lab Laboratory Tests 07/10/21 07:45: Influenza Type A (RT-PCR) Not Detected, Influenza Type B (RT-PCR) Not Detected, SARS-CoV-2 RNA (RT-PCR) DetectedH 07/10/21 07:55: White Blood Count 5.7, Red Blood Count 3.94L, Hemoglobin 10.9L, Hematocrit 33L, Mean Corpuscular Volume 83, Mean Corpuscular Hemoglobin 28, Mean Corpuscular Hemoglobin Concent 33, Red Cell Distribution Width 14.5, Platelet Count 168, Mean Platelet Volume 11.3, Immature Granulocyte % (Auto) 0, Neutrophils (%) (Auto) 84H, Lymphocytes (%) (Auto) 11L, Monocytes (%) (Auto) 5, Eosinophils (%) (Auto) 0, Basophils (%) (Auto) 0, Neutrophils # (Auto) 4.8, Lymphocytes # (Auto) 0.6L, Monocytes # (Auto) 0.3, Eosinophils # (Auto) 0.0, Basophils # (Auto) 0.0, Immature Granulocyte # (Auto) 0.0, Prothrombin Time 12.7, INR Comment 0.9, Activated Partial Thromboplast Time 39H, D-Dimer 0.75H, Sodium Level 128L, Potassium Level 3.5L, Chloride Level 92L, Carbon Dioxide Level 23, Anion Gap 13, Blood Urea Nitrogen 11, Creatinine 1.31H, Estimat Glomerular Filtration Rate 53, BUN/Creatinine Ratio 8, Glucose Level 122H, Lactic Acid Level 1.77, Calcium Level 8.6, Corrected Calcium 8.8, Total Bilirubin 0.6, Aspartate Amino Transf (AST/SGOT) 60H, Alanine Aminotransferase (ALT/SGPT) 38, Alkaline Phosphatase 65, C-Reactive Protein High Sensitivity 11.45H, Total Protein 7.1, Albumin 3.8, Procalcitonin 0.28H 07/10/21 11:33: Urine Color YELLOW, Urine Clarity CLEAR, Urine pH 6.0, Urine Specific Parrish <=1.005, Urine Protein 1+H, Urine Glucose (UA) NEGATIVE, Urine Ketones NEGATIVE, Urine Nitrite NEGATIVE, Urine Bilirubin NEGATIVE, Urine Urobilinogen 0.2, Urine Leukocyte Esterase NEGATIVE, Urine RBC (Auto) 1+H, Urine RBC 0-2, Urine WBC RARE, Urine Squamous Epithelial Cells RARE, Urine Crystals NONE, Urine Bacteria NEGATIVE, Urine Casts NONE, Urine Mucus NEGATIVE, Urine Culture Indicated NO 07/11/21 06:03: White Blood Count 6.5, Red Blood Count 3.26L, Hemoglobin 9.0L, Hematocrit 28L, Mean Corpuscular Volume 87, Mean Corpuscular Hemoglobin 28, Mean Corpuscular Hemoglobin Concent 32, Red Cell Distribution Width 14.9H, Platelet Count 153, Mean Platelet Volume 11.1, Immature Granulocyte % (Auto) 1, Neutrophils (%) (Auto) 85H, Lymphocytes (%) (Auto) 10L, Monocytes (%) (Auto) 5, Eosinophils (%) (Auto) 0, Basophils (%) (Auto) 0, Neutrophils # (Auto) 5.5, Lymphocytes # (Auto) 0.6L, Monocytes # (Auto) 0.3, Eosinophils # (Auto) 0.0, Basophils # (Auto) 0.0, Immature Granulocyte # (Auto) 0.0, Sodium Level 126L, Potassium Level 3.6, Chloride Level 98, Carbon Dioxide Level 19L, Anion Gap 9, Blood Urea Nitrogen 15, Creatinine 1.43H, Estimat Glomerular Filtration Rate 48, BUN/Creatinine Ratio 10, Glucose Level 126H, Calcium Level 7.5L, Corrected Calcium 8.3L, Total Bilirubin 0.3, Aspartate Amino Transf (AST/SGOT) 72H, Alanine Aminotransferase (ALT/SGPT) 41, Alkaline Phosphatase 47, C-Reactive Protein High Sensitivity 8.42H, Total Protein 5.6L, Albumin 3.0L Assessment/Plan Assessment/Plan Assess & Plan/Chief Complaint 1. Bilateral pneumonia -Patient to be initiated on cefepime as well as vancomycin. 07/11 -Day #2 of cefepime and vancomycin -He is currently on Vapotherm as he was unable to maintain saturations on nasal cannula oxygen. 2. Coronavirus or COVID-19 infection -Respiratory care to keep his oxygen level in the mid 90 percentile 3. Dehydration -IV fluid rehydration 07/11 -IV fluids remain at 100 cc/h 4. Hyponatremia -Monitor electrolytes Clinical Quality Measures Admission Status Admission Dx 1. Bilateral pneumonia 2. Coronavirus or COVID-19 infection 3. Dehydration 4. Hyponatremia THADDEUS RAMAN MD Jul 11, 2021 07:06
[2021-07-11] MEDS ORDERED: guaiFENesin/CODEINE (ROBITUSSIN AC) 10ML UDC PO PRN (11:00)
[2021-07-11] MEDS ORDERED: LORazepam INJ 2 MG/ML (ATIVAN) VIAL IVP STA (12:27)
[2021-07-11] MEDS ORDERED: FUROSEMIDE 40 MG/4 ML INJ (LASIX) ONE (12:42)
[2021-07-11] MEDS ORDERED: FUROSEMIDE 40 MG/4 ML INJ (LASIX) IVP STA (12:43)
[2021-07-11] MEDS ORDERED: LORazepam INJ 2 MG/ML (ATIVAN) VIAL IVP NR (12:45)
[2021-07-11] MEDS ORDERED: proPOfol 200 MG/20 ML (DIPRIVAN) VIAL IV ONE (12:48)
--- NOTE | 2021-07-11 13:13 | Anesthesia-Procedure Note ---
Procedures/Interventions Procedure Start/Stop/Diagnosis Date of Procedure: Jul 11, 2021 Start Time: 12:55 Stop Time: 13:01 Intubation Reason Intubation/Diagnosis: respiratory failure RSI: Yes 100% pre-Ox, [id number]: Yes Intubation Method: orotracheal Videoscope used: Yes (Saab) Grade View: 1 Medications: Succinylcholine (100mg) Mask Ventilation: positive Positive End Tide CO2: Yes Breath Sounds after Intubation: bilateral-equal ETT Securred @ (cm): 22 Intubated with ease: Yes Intubation Complications: no complications, vomited (on my arrival, patient vomiting in mask while RT and RN ventilating) Post Intubation Xray-done: Yes KARI HEREDIA CRNA Jul 11, 2021 13:13
[2021-07-11] MEDS ORDERED: ENOXAPARIN 40 MG/0.4 ML (LOVENOX) SYR SC SCH (13:15)
--- NOTE | 2021-07-11 13:23 | Physical Therapy Progress Note ---
Therapy Progress Note Patient transferred to ICU and intubated. PT will follow patient status. JUDITH GE PT Jul 11, 2021 13:23
[2021-07-11] MEDS: PROPOFOL DRIP (ICU) 100 ML IV SCH ×2 (13:25→19:26)
--- NOTE | 2021-07-11 13:25 | Tele-ICU Consult ---
History of Present Illness History of Present Illness Date Seen by Provider: Jul 11, 2021 Time Seen by Provider: 13:24 Date of Admission Allergies and Home Medications Allergies Coded Allergies: No Known Drug Allergies (Unverified , 06/08/10) Home Medications Acetaminophen 500 Mg Tablet, 1,000 MG PO Q8H PRN for PAIN-MILD (1-4), (Reported) Bisoprolol Fumarate/Hctz 1 Each Tablet, 1 EA PO HS, (Reported) Calcium Carbonate 600 Mg Tablet, 600 MG PO DAILY, (Reported) Cholecalciferol (Vitamin D3) 25 Mcg Tablet, 25 MCG PO DAILY, (Reported) Glucosamine/D3/Boswellia Karyn 1 Each Tablet, 1 EACH PO BID, (Reported) Hydrochlorothiazide 25 Mg Tablet, 25 MG PO DAILY, (Reported) Lisinopril 5 Mg Tablet, 5 MG PO DAILY, (Reported) Lysine 600 Mg Tablet, 600 MG PO BID, (Reported) Mv,Minerals/FA/Lycopene/Ginkgo 1 Each Tablet, 1 EACH PO DAILY, (Reported) Potassium Chloride 20 Meq Tab.er.prt, 20 MEQ PO BID, (Reported) Past Medical/Social/Family Hx Patient Social History Marrital Status: Tobacco Use?: No Smoking Status: Former Smoker Substance use?: No Alcohol Use?: No Pt stated abuse/neglect: No Immunizations Up To Date First/Initial COVID19 Vaccinat: MODERNA 07/02/21 Second COVID19 Vaccination Miguelangel: MODERNA 07/02/21 Current Status Advance Directives: No Communicates: Verbally Primary Language: Mauritian Preferred Spoken Language: Mauritian Is interpretation needed?: No Sensory deficits: Vision impairment Implanted or Applied Medical D: None Review of Systems Constitutional: see HPI Sepsis Event Evaluation Height, Weight, BMI Height: 5'6.00" Weight: 165lbs. 0.0oz. 74.508222ft; 26.89 BMI Method:Stated Exam Exam Patient acknowledged, consented, and participated in this virtual visit which was conducted using real time audio/video Vital Signs Date Time Temp Pulse Resp B/P (MAP) Pulse Ox O2 Delivery O2 Flow Rate FiO2 07/11/21 12:54 91 07/11/21 12:25 92 48 94 100.00 07/11/21 10:49 86 37 96 60.00 07/11/21 08:00 36.1 91 20 115/56 (75) 90 Vapotherm 30.00 80.00 07/11/21 08:00 Vapotherm 30.00 80 07/11/21 07:28 Vapotherm 30.00 80 07/11/21 07:00 69 07/11/21 05:44 37.4 69 16 94 Vapotherm 20.00 70.00 07/11/21 04:40 37.4 07/11/21 03:53 93 Vapotherm 20.00 70 07/11/21 03:40 37.9 07/11/21 03:27 37.9 92 20 98/54 (69) 92 Nasal Cannula 5.00 07/11/21 02:10 3.00 07/11/21 01:00 75 07/10/21 23:15 36.9 86 20 102/54 (70) 91 Nasal Cannula 2.00 07/10/21 22:33 3.00 07/10/21 22:18 68 07/10/21 19:46 37.7 84 20 112/49 (70) 95 Nasal Cannula 2.00 07/10/21 19:42 93 Nasal Cannula 3.00 07/10/21 19:30 Nasal Cannula 2.50 07/10/21 17:00 37.4 63 19 115/59 (77) 95 Nasal Cannula 2.00 07/10/21 15:39 Nasal Cannula 2.50 07/10/21 14:37 39.2 74 93 28 I & O 07/11/21 07:00 Intake Total 2355 ml Output Total 650 ml Balance 1705 ml Height & Weight Height: 5'6.00" Weight: 165lbs. 0.0oz. 74.929201gw; 26.89 BMI Method:Stated General Appearance: No Apparent Distress HEENT: PERRL/EOMI, Normal ENT Inspection Neck: Full Range of Motion Respiratory: Lungs Clear, Decreased Breath Sounds (In the bases) Cardiovascular: Regular Rate, Rhythm Capillary Refill: Less Than 3 Seconds Gastrointestinal: soft (But firm to the touch) Extremity: Normal Capillary Refill Neurologic/Psychiatric: Alert, Oriented x3 Skin: Cool Results Lab Laboratory Tests 07/10/21 07:55 07/11/21 06:03 Assessment/Plan Assessment/Plan (Tele-ICU Physician , consultation) Available chart/ vitals / labs / Images reviewed H&P is from ER notes Patient's information available about PMH, Shx, Fhx allergy reviewed in EMR. ROS as per chart and RN report Ptient ransferred to ICU in acute resp distress , hypoxic - needed emergent intubation ( done without compplication ETT _ frotthy sputum hypertensive after intibation Patient admitted 07/10 - COVID PNA 07/11 - INTUBATED Consultants: A/P AHRF / ARDS due to severe COVID19 ( no PE on CT 07/10 -intubated 07/11 - AC 24 tv 390 + 16 100% -prone if possible - conservative fluid strategy (aim for even or negative fluid balance - check ddimer , BNP , troponin ,PCT to address other possible etiology - follow cxr , abg and labs [id number]/COVID-19 PNA ( Not vaccinated , exposure 06/29 , COvid vaccine 07/02 , Dx 07/10 -Steroids IV - started 07/10 -Hypercoagulable state , DDIMER 0.75 on 07/10 -> l will start ovenox ppx dose , follow D dimer today - will adjust AC if needed ( no evidence of large PE on CT 07/10 ) Suspected superimposed bact PNA -empiric abx started 07/10 ( PCY 0.28 ) - cefepime as well as vancomycin. 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 Discussed with RN to reach out if any questions or concerns A total of 60 minutes of critical care time was devoted to this patient today, required to treat and/or prevent further deterioration of critical care condition ( as above ) . MARIA ESTHER DELGADO MD Jul 11, 2021 13:25
--- NOTE | 2021-07-11 13:34 | Diagnostic Imaging Report ---
INDICATION: Respiratory failure. COMPARISON: 07/10/2021 FINDINGS: Single frontal radiographic view of the chest was obtained and demonstrates interval placement of endotracheal tube, tip of which terminates approximately 1 cm above the adolfo. Gastric tube is also seen with tip below the hiatus. Side port is not well visualized, but appears to be just above the hiatus. Lungs show severe interval progression of diffuse interstitial infiltrate with scattered areas of more focal confluence, right greater than left. There is no large effusion or pneumothorax. Cardiac silhouette remains mildly enlarged. Hiatal hernia is noted. Osseous structures show no gross acute abnormalities. IMPRESSION: 1. Significant interval progression of bilateral infiltrate, right greater than left. 2. Lines and tubes as above. Dictated by: Dictated on workstation # [id number]
[2021-07-11] MEDS ORDERED: LORazepam INJ 2 MG/ML (ATIVAN) VIAL IVP ONE (14:00)
--- NOTE | 2021-07-11 14:05 | Occ Therapy Progress Note ---
Therapy Progress Note OT orders received. Pt just intubated/sedated. OT will monitor pt status and initiate tx when pt is more medically stable and able to actively participate in skilled therapy MIKAYLA HUIZAR OT Jul 11, 2021 14:05
[2021-07-11] MEDS: VANCOMYCIN 1250 MG/NS 250 ML IVPB IV SCH ×2 (15:16)
[2021-07-11 15:19] LABS: CALCIUM 7.3 MG/DL (8.5-10.1); CREATININE SERUM 1.58 MG/DL (0.60-1.30); MAGNESIUM 1.5 MG/DL (1.6-2.4); POTASSIUM 4.3 MMOL/L (3.6-5.0)
[2021-07-11] MEDS: fentaNYL INJ 100 MCG/2 ML AMP IVP PRN (15:50)
[2021-07-11 16:35] LABS: ABG BASE EXCESS -3.3 MMOL/L (-2.5-2.5); ABG OXYGEN SATURATION 79 % (94-100); ABG PCO2 36 MMHG (35-45); ABG PH 7.38 (7.37-7.43); ABG PO2 48 MMHG (79-93); ABG TCO2 22.1 MMOL/L (21.0-31.0)
[2021-07-11 16:39] LABS: ALLENS TEST POSITIVE; INSPIRED O2 60%; PATIENT TEMP 98.9; VENTILATOR YES
[2021-07-11] MEDS ORDERED: MAGNESIUM 1 GM/100 ML IVPB 100 ML IV ONE (16:45)
[2021-07-11] MEDS ORDERED: MIDAZOLAM 5 MG/5 ML (VERSED) VIAL IJ ONE (19:17)
[2021-07-11] MEDS ORDERED: fentaNYL INJ 100 MCG/2 ML AMP IV ONE (19:17)
[2021-07-11] MEDS ORDERED: SUCCINYLCHOLINE INJ 100 MG/5 ML SYR/VIAL INJ ONE (19:17)
[2021-07-11 20:42] LABS: POTASSIUM 3.9 MMOL/L (3.6-5.0)
[2021-07-11 20:47] LABS: CREATININE SERUM 1.37 MG/DL (0.60-1.30)
[2021-07-11] MEDS: inSUlin ASPART (NovoLOG) 1 UNIT/0.01 ML (CHARGE PER UNIT) SC SCH (23:26)
[2021-07-11] MEDS: ENOXAPARIN 80 MG/0.8 ML (LOVENOX) SYR SC SCH (23:26)
[2021-07-12] VITALS (29 sets, daily range): BP systolic 101–130; BP diastolic 49–69
[2021-07-12] MEDS: PROPOFOL DRIP (ICU) 100 ML IV SCH ×4 (01:40→16:51)
[2021-07-12] MEDS: RT-ALBUTEROL HFA 8.5 GM INHALER IH SCH ×6 (02:19→22:37)
[2021-07-12] MEDS: CEFEPIME 1,000 MG/SWFI 10 ML IV PUSH IV SCH ×6 (03:38→19:40)
[2021-07-12 03:58] LABS: ABG BASE EXCESS -3.4 MMOL/L (-2.5-2.5); ABG OXYGEN SATURATION 96 % (94-100); ABG PCO2 31 MMHG (35-45); ABG PH 7.43 (7.37-7.43); ABG PO2 85 MMHG (79-93); ABG TCO2 21.1 MMOL/L (21.0-31.0)
[2021-07-12 03:59] LABS: ALLENS TEST NO
[2021-07-12 04:00] LABS: BASOPHILS % (AUTO) 0 % (0-10); EOSINOPHILS % (AUTO) 0 % (0-10); HEMATOCRIT 28 % (40-54); HEMOGLOBIN 9.1 g/dL (13.3-17.7); INSPIRED O2 45%; LYMPHOCYTES # (AUTO) 0.5 10^3/uL (1.0-4.0); LYMPHOCYTES % (AUTO) 7 % (12-44); MEAN CORPUSCULAR HEMOGLOBIN 28 pg (25-34); MEAN CORPUSCULAR HGB CONC 33 g/dL (32-36); MEAN CORPUSCULAR VOLUME 85 fL (80-99); MEAN PLATELET VOLUME 10.6 fL (9.0-12.2); MONOCYTES # (AUTO) 0.2 10^3/uL (0.0-1.0); MONOCYTES % (AUTO) 3 % (0-12); NEUTROPHILS # (AUTO) 6.5 10^3/uL (1.8-7.8); NEUTROPHILS % (AUTO) 90 % (42-75); PATIENT TEMP 37.3; PLATELET COUNT 163 10^3/uL (130-400); VENTILATOR YES; WHITE BLOOD COUNT 7.3 10^3/uL (4.3-11.0)
[2021-07-12] MEDS: POTASSIUM CL 10MEQ/50ML IVPB 50 ML IV SCH (04:09)
[2021-07-12] MEDS: MAGNESIUM 1 GM/100 ML IVPB 100 ML IV SCH (04:09)
[2021-07-12] MEDS: KCL 20 MEQ TAB (K-DUR) PO SCH (04:10)
[2021-07-12 04:39] LABS: BAND NEUTROPHILS 2 %; BURR CELLS SLIGHT; LYMPHOCYTES % (MANUAL) 6 %; MICROCYTOSIS SLIGHT; MONOCYTES % (MANUAL) 1 %; NEUTROPHILS % (MANUAL) 91 %
[2021-07-12 04:43] LABS: ALBUMIN 2.7 GM/DL (3.2-4.5)
[2021-07-12 04:44] LABS: POTASSIUM 3.7 MMOL/L (3.6-5.0)
[2021-07-12 04:45] LABS: CALCIUM 6.9 MG/DL (8.5-10.1)
[2021-07-12 04:46] LABS: TOTAL PROTEIN 5.2 GM/DL (6.4-8.2)
[2021-07-12 04:48] LABS: BILIRUBIN,TOTAL 0.4 MG/DL (0.1-1.0)
[2021-07-12 04:50] LABS: CREATININE SERUM 1.22 MG/DL (0.60-1.30)
[2021-07-12 04:53] LABS: MAGNESIUM 1.8 MG/DL (1.6-2.4)
[2021-07-12] MEDS: fentaNYL INJ 100 MCG/2 ML AMP IVP PRN ×4 (05:18→19:37)
[2021-07-12] MEDS: NS IV 1000 ML 1,000 ML IV SCH ×4 (05:18→23:21)
[2021-07-12] MEDS: inSUlin ASPART (NovoLOG) 1 UNIT/0.01 ML (CHARGE PER UNIT) SC SCH ×4 (05:31→23:21)
--- NOTE | 2021-07-12 06:43 | Progress Note - Hospitalist ---
Subjective HPI/CC On Admission Date Seen by Provider: Jul 12, 2021 Time Seen by Provider: 11:30 Subjective/Events-last exam Patient intubated Family wants DNR Very poor prognosis Check meds and labs Focused Exam Lactate Level 07/10/21 07:55: Lactic Acid Level 1.77 Objective Exam Vital Signs Vital Signs Date Time Temp Pulse Resp B/P (MAP) Pulse Ox O2 Delivery O2 Flow Rate FiO2 07/13/21 06:00 69 25 121/61 (81) 98 Mechanical Ventilator 45.00 07/13/21 04:00 70 07/13/21 03:47 36.6 Capillary Refill : Less Than 3 Seconds General Appearance: No Apparent Distress, WD/WN, Chronically ill Respiratory: No Accessory Muscle Use, No Respiratory Distress, Decreased Breath Sounds Cardiovascular: Regular Rate, Rhythm Results/Procedures Lab Laboratory Tests 07/13/21 03:30 Patient resulted labs reviewed. Assessment/Plan Assessment and Plan Assess & Plan/Chief Complaint Assessment: COVID-19 pneumonia Acute hypoxic respiratory failure requiring ventilator management Advanced age of 81 Plan: DNR reasonable Prognosis poor JAMEL ARRIETA DO Jul 12, 2021 06:43
[2021-07-12] MEDS: PANTOPRAZOLE 40 MG (PROTONIX) VIAL IV SCH (08:33)
--- NOTE | 2021-07-12 08:39 | Diagnostic Imaging Report ---
INDICATION: Respiratory distress. COMPARISON: 07/11/2021 FINDINGS: The heart size is normal. There is bilateral airspace disease. There is no pleural effusion or pneumothorax. The lines and tubes are in satisfactory positions. Underlying venous congestion cannot be excluded. IMPRESSION: Diffuse bilateral airspace disease, right slightly greater than left. Underlying central pulmonary venous congestion cannot be excluded. Dictated by: Dictated on workstation # [id number]
--- NOTE | 2021-07-12 08:54 | Tele-ICU Progress Note ---
Subjective Date Seen by a Provider: Jul 12, 2021 Time Seen by a Provider: 08:24 Subjective/Events-last exam This 81-year-old gentleman who is unvaccinated developed a Covid pneumonia and admitted to medical floor with a in relatively stable condition however he developed a rapid respiratory failure requiring intubation and mechanical ventilation. At that time he is found to have a markedly elevated troponin. It is felt either pulmonary edema versus rapid development of pneumonia. Cardiology consultation has been requested. I have reviewed his records and chest x-rays. Video visit made. Sepsis Event Evaluation Height, Weight, BMI Height: 5'6.00" Weight: 165lbs. 0.0oz. 74.831746cf; 26.89 BMI Method:Stated Focused Exam Lactate Level 07/10/21 07:55: Lactic Acid Level 1.77 Exam Exam Patient acknowledged, consented, and participated in this virtual visit which was conducted using real time audio/video Vital Signs Date Time Temp Pulse Resp B/P (MAP) Pulse Ox O2 Delivery O2 Flow Rate FiO2 07/12/21 08:47 Mechanical Ventilator 60.00 07/12/21 08:00 Mechanical Ventilator 60 07/12/21 08:00 68 25 119/54 (75) 93 Mechanical Ventilator 40.00 07/12/21 08:00 Mechanical Ventilator 60 07/12/21 07:00 69 27 127/58 (81) 95 Mechanical Ventilator 40.00 07/12/21 07:00 71 07/12/21 06:55 74 35 94 35 07/12/21 06:00 71 24 121/56 (77) 96 Mechanical Ventilator 40.00 07/12/21 05:18 69 118/58 07/12/21 05:03 36.7 99 Mechanical Ventilator 40.00 07/12/21 05:00 71 24 119/57 (77) 99 Mechanical Ventilator 45.00 07/12/21 05:00 69 45 96 07/12/21 04:00 Mechanical Ventilator 45 07/12/21 04:00 66 21 126/57 (80) 99 Mechanical Ventilator 45.00 07/12/21 03:00 67 22 118/58 (78) 98 Mechanical Ventilator 45.00 07/12/21 02:20 71 27 98 45 07/12/21 02:00 73 26 114/57 (76) 99 Mechanical Ventilator 45.00 07/12/21 01:41 Mechanical Ventilator 45.00 07/12/21 01:40 65 114/57 07/12/21 01:00 65 27 120/58 (78) 100 Mechanical Ventilator 50.00 07/12/21 01:00 65 07/12/21 00:00 Mechanical Ventilator 50 07/12/21 00:00 66 26 108/58 (75) 98 Mechanical Ventilator 50.00 07/11/21 23:28 37.3 65 26 114/57 (76) 96 Mechanical Ventilator 50.00 07/11/21 22:22 65 25 98 50 07/11/21 22:00 66 26 111/56 (74) 98 Mechanical Ventilator 55.00 07/11/21 21:00 70 26 111/54 (73) 97 Mechanical Ventilator 55.00 07/11/21 20:00 Mechanical Ventilator 60 07/11/21 20:00 70 26 118/56 (76) 99 Mechanical Ventilator 55.00 07/11/21 19:30 36.7 69 24 122/61 (81) 98 Mechanical Ventilator 55.00 07/11/21 19:26 70 119/60 07/11/21 19:00 70 07/11/21 18:37 70 26 99 60 07/11/21 18:00 67 21 113/64 (80) 100 Mechanical Ventilator 60.00 07/11/21 17:00 70 26 111/65 (80) 100 Mechanical Ventilator 60.00 07/11/21 16:06 37.1 07/11/21 16:00 73 27 102/65 (77) 97 Mechanical Ventilator 60.00 07/11/21 16:00 Mechanical Ventilator 60 07/11/21 15:59 Mechanical Ventilator 60.00 07/11/21 15:39 72 32 99 60 07/11/21 15:00 75 33 93/59 (68) 100 Mechanical Ventilator 100.00 07/11/21 14:00 85 35 92/59 (67) 99 Mechanical Ventilator 100.00 07/11/21 13:25 94 89/56 07/11/21 13:00 100 13 160/76 (104) 88 Mechanical Ventilator 100.00 07/11/21 13:00 95 37 93 100 07/11/21 12:54 91 07/11/21 12:45 Mechanical Ventilator 100 07/11/21 12:25 92 48 94 100.00 07/11/21 10:49 86 37 96 60.00 I & O 07/12/21 06:59 Intake Total 1162 ml Output Total 1285 ml Balance -123 ml Height & Weight Height: 5'6.00" Weight: 165lbs. 0.0oz. 74.764246fs; 26.89 BMI Method:Stated General Appearance: No Apparent Distress HEENT: PERRL/EOMI, Normal ENT Inspection Neck: Full Range of Motion Respiratory: Lungs Clear, Decreased Breath Sounds (In the bases) Cardiovascular: Regular Rate, Rhythm Capillary Refill: Less Than 3 Seconds Gastrointestinal: soft (But firm to the touch) Extremity: Normal Capillary Refill Neurologic/Psychiatric: Alert, Oriented x3 Skin: Cool Other comments PE per RN Results Lab Laboratory Tests 07/11/21 06:03 07/11/21 14:45 07/11/21 20:15 07/12/21 03:40 Meds reviewed Radiology cxr reviewed Assessment/Plan Assessment/Plan 1. Acute hypoxic respiratory failure secondary to severe Covid19 pneumonia requiring mechanical ventilation. 2. Possible fluid overload/flash pulmonary edema 2. Non-ST segment elevation myocardial infarction 3. [id number] pneumonia 3. Super added bacterial pneumonia is a possibility. 5. Hypercoagulable state 6. Acute kidney injury mild. Recommendations 1. Continue mechanical ventilatory support 2. NSTEMI per cardiology 3. Minimize IV fluids 4. Full dose anticoagulation 5. Continue monitor his blood gases, BUN/creatinine 6. Echocardiogram per cardiology. 7. PPIs for ulcer prophylaxis. 8. Continue Decadron and IV antibiotics. Critical Care: Critically Ill Patient Time spent with patient (mins): 35 PRIYANKA SCHULTZ MD Jul 12, 2021 08:54
[2021-07-12] MEDS: ENOXAPARIN 80 MG/0.8 ML (LOVENOX) SYR SC SCH ×2 (09:21→21:03)
--- NOTE | 2021-07-12 09:50 | Consultation-Cardiology ---
HPI-Cardiology Cardiology Consultation Date of Consultation 07/12/21 Date of Admission Time Seen by Provider: 09:45 Indication: Acute myocardial infarction HPI 81 years old gentleman intubated and sedated, unable to provide any history, history was obtained by reviewing his record. He was admitted through the emergency room department for cough, shortness of breath and generalized weakness, he was exposed to Covid positive patient on June 26, received his first Janene vaccination on July 02 then he started to have worsening dyspnea and cough. He denied any chest pain on admission. Was admitted to the medical floor then progressed into acute respiratory failure and transferred to the intensive care unit where he was intubated. He was noted to have elevation in troponin level. He was severely hypoxemic. No acute EKG changes suggestive of ischemia. Home Medications & Allergies Allergies: Coded Allergies: No Known Drug Allergies (Unverified , 06/08/10) Home Medication List Reviewed: Yes FIV-Rmxeyp-Nhsjis Hx Patient Social History Marital Status: Smoking Status: Former Smoker Type Used: Cigarettes Recent Hopitalizations: No Have you traveled recently?: No Alcohol Use?: No Immunizations Up To Date Date of Influenza Vaccine: Sep 06, 2017 Past Medical History Unable to provide past medical history Family Medical History Family Medical Hx Unable to provide Review of Systems-General Review of Systems Constitutional: see HPI, other (Sedated and intubated, unable to provide review of system) Respiratory: see HPI Cardiovascular: no symptoms reported Gastrointestinal: see HPI Genitourinary: no symptoms reported Musculoskeletal: no symptoms reported Skin: no symptoms reported Psychiatric/Neurological: No Symptoms Reported Reviewed Test Results Reviewed Test Results Lab Laboratory Tests Test 07/11/21 14:45 07/11/21 16:27 07/11/21 17:35 07/11/21 20:15 Range/Units D-Dimer 1.13 H 0.00-0.49 UG/ML Sodium Level 130 L 129 L 135-145 MMOL/L Potassium Level 4.3 3.9 3.6-5.0 MMOL/L Chloride Level 100 101 98-107 MMOL/L Carbon Dioxide Level 19 L 20 L 21-32 MMOL/L Anion Gap 11 8 5-14 MMOL/L Blood Urea Nitrogen 16 16 7-18 MG/DL Creatinine 1.58 H 1.37 H 0.60-1.30 MG/DL Estimat Glomerular Filtration Rate 42 50 BUN/Creatinine Ratio 10 12 Glucose Level 138 H 145 H 70-105 MG/DL Calcium Level 7.3 L 7.0 L 8.5-10.1 MG/DL Magnesium Level 1.5 L 1.6-2.4 MG/DL Troponin I 8.555 *H 15.201 *H <0.028 NG/ML B-Type Natriuretic Peptide 391.7 H <100.0 PG/ML Procalcitonin 0.78 H <0.10 NG/ML Blood Gas Puncture Site RIGHT RADIAL Blood Gas Patient Temperature 98.9 Arterial Blood pH 7.38 7.37-7.43 Arterial Blood Partial Pressure CO2 36 35-45 MMHG Arterial Blood Partial Pressure O2 48 L 79-93 MMHG Arterial Blood HCO3 21 L 23-27 MMOL/L Arterial Blood Total CO2 22.1 21.0-31.0 MMOL/L Arterial Blood Oxygen Saturation 79 L 94-100 % Arterial Blood Base Excess -3.3 L -2.5-2.5 MMOL/L Cuong Test POSITIVE Blood Gas Ventilator Setting YES Blood Gas Inspired Oxygen 60% Glucometer 151 H 70-110 MG/DL Test 07/11/21 23:20 07/12/21 03:40 Range/Units Glucometer 131 H 70-110 MG/DL White Blood Count 7.3 4.3-11.0 10^3/uL Red Blood Count 3.25 L 4.30-5.52 10^6/uL Hemoglobin 9.1 L 13.3-17.7 g/dL Hematocrit 28 L 40-54 % Mean Corpuscular Volume 85 80-99 fL Mean Corpuscular Hemoglobin 28 25-34 pg Mean Corpuscular Hemoglobin Concent 33 32-36 g/dL Red Cell Distribution Width 15.2 H 10.0-14.5 % Platelet Count 163 130-400 10^3/uL Mean Platelet Volume 10.6 9.0-12.2 fL Immature Granulocyte % (Auto) 1 % Neutrophils (%) (Auto) 90 H 42-75 % Lymphocytes (%) (Auto) 7 L 12-44 % Monocytes (%) (Auto) 3 0-12 % Eosinophils (%) (Auto) 0 0-10 % Basophils (%) (Auto) 0 0-10 % Neutrophils # (Auto) 6.5 1.8-7.8 10^3/uL Lymphocytes # (Auto) 0.5 L 1.0-4.0 10^3/uL Monocytes # (Auto) 0.2 0.0-1.0 10^3/uL Eosinophils # (Auto) 0.0 0.0-0.3 10^3/uL Basophils # (Auto) 0.0 0.0-0.1 10^3/uL Immature Granulocyte # (Auto) 0.1 0.0-0.1 10^3/uL Neutrophils % (Manual) 91 % Lymphocytes % (Manual) 6 % Monocytes % (Manual) 1 % Band Neutrophils 2 % Microcytosis SLIGHT [place] Cells SLIGHT Blood Gas Puncture Site LEFT RAD Blood Gas Patient Temperature 37.3 Arterial Blood pH 7.43 7.37-7.43 Arterial Blood Partial Pressure CO2 31 L 35-45 MMHG Arterial Blood Partial Pressure O2 85 79-93 MMHG Arterial Blood HCO3 20 L 23-27 MMOL/L Arterial Blood Total CO2 21.1 21.0-31.0 MMOL/L Arterial Blood Oxygen Saturation 96 94-100 % Arterial Blood Base Excess -3.4 L -2.5-2.5 MMOL/L Cuong Test NO Blood Gas Ventilator Setting YES Blood Gas Inspired Oxygen 45% Sodium Level 131 L 135-145 MMOL/L Potassium Level 3.7 3.6-5.0 MMOL/L Chloride Level 103 98-107 MMOL/L Carbon Dioxide Level 18 L 21-32 MMOL/L Anion Gap 10 5-14 MMOL/L Blood Urea Nitrogen 15 7-18 MG/DL Creatinine 1.22 0.60-1.30 MG/DL Estimat Glomerular Filtration Rate 57 BUN/Creatinine Ratio 12 Glucose Level 132 H 70-105 MG/DL Calcium Level 6.9 L 8.5-10.1 MG/DL Corrected Calcium 7.9 L 8.5-10.1 MG/DL Magnesium Level 1.8 1.6-2.4 MG/DL Total Bilirubin 0.4 0.1-1.0 MG/DL Aspartate Amino Transf (AST/SGOT) 134 H 5-34 U/L Alanine Aminotransferase (ALT/SGPT) 48 0-55 U/L Alkaline Phosphatase 44 40-136 U/L Total Protein 5.2 L 6.4-8.2 GM/DL Albumin 2.7 L 3.2-4.5 GM/DL Physical Exam Physical Exam Vital Signs Vital Signs - First Documented 07/10/21 07/10/21 07/10/21 07:40 08:20 14:37 Temp 39.2 Pulse 74 Resp 36 B/P (MAP) 145/62 (89) Pulse Ox 93 O2 Delivery Room Air O2 Flow Rate 2.50 FiO2 28 Capillary Refill : Less Than 3 Seconds Height, Weight, BMI Height: 5'6.00" Weight: 165lbs. 0.0oz. 74.327919ku; 26.89 BMI Method:Stated General Appearance: No Apparent Distress, Other (Sedated and intubated) Respiratory: Other (Ventilator dependent) Cardiovascular: Regular Rate, Rhythm Gastrointestinal: Soft Back: Normal Inspection Extremity: Normal Capillary Refill Neurologic/Psychiatric: Other (Sedated and intubated) A/P-Cardiology Admission Diagnosis Acute respiratory failure Pneumonia COVID-19 Non-ST elevation myocardial infarction Assessment/Plan Acute respiratory failure secondary to COVID-19 pneumonia, ventilator dependent, managed by primary care team Non-ST elevation myocardial infarction, probably type II myocardial infarction secondary to severe hypoxemia. EKG reviewed did not show any acute ST elevation, patient has left anterior fascicular block. Has significant elevation in troponin. Underlying coronary artery disease cannot be entirely excluded. We will continue monitoring at this time and patient was started on Lovenox, adding aspirin Hypertension, has been on bisoprolol, lisinopril and hydrochlorothiazide as an outpatient. Continue to monitor blood pressure Hyponatremia, improving slowly, probably secondary to pneumonia. Continue to monitor Anemia, slight deterioration in H&H. Continue to monitor RAMSEY MACKENZIE MD Jul 12, 2021 09:50
[2021-07-12] MEDS ORDERED: ASPIRIN E.C. 325 MG (ECOTRIN) TABLET PO NR ×3 (10:30→21:00)
[2021-07-12] MEDS: VANCOMYCIN 1250 MG/NS 250 ML IVPB IV SCH ×2 (14:42)
[2021-07-13] VITALS (30 sets, daily range): BP systolic 100–152; BP diastolic 53–91
[2021-07-13] MEDS: fentaNYL INJ 100 MCG/2 ML AMP IVP PRN ×2 (00:38→02:23)
[2021-07-13] MEDS: PROPOFOL DRIP (ICU) 100 ML IV SCH ×4 (00:48→23:58)
[2021-07-13] MEDS ORDERED: FUROSEMIDE 40 MG/4 ML INJ (LASIX) ONE ×2 (01:01→20:41)
[2021-07-13] MEDS ORDERED: FUROSEMIDE 40 MG/4 ML INJ (LASIX) IVP ONE ×2 (01:15→20:45)
[2021-07-13] MEDS: RT-ALBUTEROL HFA 8.5 GM INHALER IH SCH ×6 (01:21→23:19)
[2021-07-13 03:52] LABS: BASOPHILS % (AUTO) 0 % (0-10); EOSINOPHILS % (AUTO) 0 % (0-10); HEMATOCRIT 30 % (40-54); HEMOGLOBIN 9.8 g/dL (13.3-17.7); LYMPHOCYTES # (AUTO) 0.3 10^3/uL (1.0-4.0); LYMPHOCYTES % (AUTO) 4 % (12-44); MEAN CORPUSCULAR HEMOGLOBIN 28 pg (25-34); MEAN CORPUSCULAR HGB CONC 33 g/dL (32-36); MEAN CORPUSCULAR VOLUME 86 fL (80-99); MEAN PLATELET VOLUME 10.8 fL (9.0-12.2); MONOCYTES # (AUTO) 0.4 10^3/uL (0.0-1.0); MONOCYTES % (AUTO) 4 % (0-12); NEUTROPHILS # (AUTO) 8.3 10^3/uL (1.8-7.8); NEUTROPHILS % (AUTO) 91 % (42-75); PLATELET COUNT 182 10^3/uL (130-400); WHITE BLOOD COUNT 9.2 10^3/uL (4.3-11.0)
[2021-07-13 04:04] LABS: POTASSIUM 3.3 MMOL/L (3.6-5.0)
[2021-07-13 04:05] LABS: CALCIUM 6.9 MG/DL (8.5-10.1)
[2021-07-13 04:09] LABS: PHOSPHORUS 2.2 MG/DL (2.3-4.7)
[2021-07-13 04:10] LABS: CREATININE SERUM 1.03 MG/DL (0.60-1.30)
[2021-07-13 04:12] LABS: MAGNESIUM 1.9 MG/DL (1.6-2.4)
[2021-07-13] MEDS: KCL 20 MEQ TAB (K-DUR) PO SCH (04:47)
[2021-07-13] MEDS: POTASSIUM CL 10MEQ/50ML IVPB 50 ML IV SCH ×5 (04:47→08:29)
[2021-07-13] MEDS: MAGNESIUM 1 GM/100 ML IVPB 100 ML IV SCH (04:47)
[2021-07-13] MEDS: inSUlin ASPART (NovoLOG) 1 UNIT/0.01 ML (CHARGE PER UNIT) SC SCH ×4 (04:48→23:54)
[2021-07-13 04:54] LABS: ABG BASE EXCESS -1.8 MMOL/L (-2.5-2.5); ABG OXYGEN SATURATION 92 % (94-100); ABG PCO2 33 MMHG (35-45); ABG PH 7.43 (7.37-7.43); ABG PO2 60 MMHG (79-93); ALLENS TEST NO; INSPIRED O2 60%; PATIENT TEMP 36.6; VENTILATOR YES
[2021-07-13] MEDS: CEFEPIME 1,000 MG/SWFI 10 ML IV PUSH IV SCH ×8 (05:32→23:55)
--- NOTE | 2021-07-13 07:57 | Diagnostic Imaging Report ---
INDICATION: Pneumonia. COMPARISON: 07/12/2021 FINDINGS: There are bilateral pulmonary infiltrates right greater than left. Some underlying venous congestion cannot be excluded. There is no pleural effusion or pneumothorax. The endotracheal tube has its tip just above the adolfo. The nasogastric tube and the right upper extremity PICC line remain in place. There is no pneumothorax. The mediastinum is unremarkable. IMPRESSION: Persistent diffuse bilateral pulmonary infiltrates, right greater than left. Some underlying central pulmonary venous congestion cannot be excluded. Dictated by: Dictated on workstation # [id number]
[2021-07-13] MEDS ORDERED: fentaNYL DRIP PRE-MIX 250 ML IV ONE (08:01)
[2021-07-13] MEDS: ASPIRIN E.C. 81 MG (ECOTRIN) TAB PO SCH (08:28)
[2021-07-13] MEDS: fentaNYL DRIP PRE-MIX 250 ML IV SCH ×2 (08:28→23:08)
[2021-07-13] MEDS: PANTOPRAZOLE 40 MG (PROTONIX) VIAL IV SCH (08:28)
[2021-07-13] MEDS: ENOXAPARIN 80 MG/0.8 ML (LOVENOX) SYR SC SCH ×2 (08:31→21:10)
--- NOTE | 2021-07-13 09:16 | Cardiology Progress Note ---
Subjective Date Seen by Provider: Jul 13, 2021 Time Seen by Provider: 09:14 Subjective/Events-last exam Patient is sedated and intubated. Unable to provide any history Review of Systems General: Other (Unable to provide review of system) Objective-Cardiology Exam Last Set of Vital Signs Vital Signs 07/13/21 07/13/21 07:36 08:00 Temp 36.5 Pulse 70 Resp 30 B/P (MAP) 139/65 (88) Pulse Ox 93 O2 Delivery Mechanical Ventilator O2 Flow Rate 45.00 FiO2 70 I&O Intake and Output 07/13/21 00:00 Intake Total 0 ml Output Total 2600 ml Balance -2600 ml Intake Oral 0 ml Output Urine Total 2600 ml General: Other (Sedated and intubated) HEENT: Atraumatic Heart: Regular Rate Extremities: No Clubbing Skin: No Rashes Neuro: Other (Sedated and intubated) Psych/Mental Status: Other (Sedated and intubated) Results Lab Laboratory Tests 07/13/21 03:30 A/P-Cardiology Admission Diagnosis Acute respiratory failure Pneumonia COVID-19 Non-ST elevation myocardial infarction Assessment/Plan Acute respiratory failure secondary to COVID-19 pneumonia, ventilator dependent, managed by primary care team Non-ST elevation myocardial infarction, probably type II myocardial infarction secondary to severe hypoxemia. EKG reviewed did not show any acute ST elevation, patient has left anterior fascicular block. Has significant elevation in troponin. Underlying coronary artery disease cannot be entirely excluded. patient was started on Lovenox and aspirin and continue to monitor Hypertension, has been on bisoprolol, lisinopril and hydrochlorothiazide as an outpatient. Continue to monitor blood pressure Hyponatremia, improving slowly, probably secondary to pneumonia. Continue to monitor Hypokalemia, replace and monitor Anemia. Continue to monitor RAMSEY MACKENZIE MD Jul 13, 2021 09:16
--- NOTE | 2021-07-13 09:43 | Tele-ICU Progress Note ---
Subjective Date Seen by a Provider: Jul 13, 2021 Time Seen by a Provider: 09:41 Subjective/Events-last exam 81 yo M with COVID PNA, developed rapid deterioration on 07/11, transferred to MICU and intubated, now on AC 24, Vt 390 PEEP 10 FiO2 45% CXR shows dense bilateral infiltrates, R > L, ET tube is a little low on IV Vanco/Cefepime IV Decadron Lovenox 60 bid d dimer was high at 1.13and IV PPI Sepsis Event Evaluation Height, Weight, BMI Height: 5'6.00" Weight: 165lbs. 0.0oz. 74.181968al; 26.89 BMI Method:Stated Exam Exam Patient acknowledged, consented, and participated in this virtual visit which was conducted using real time audio/video Vital Signs Date Time Temp Pulse Resp B/P (MAP) Pulse Ox O2 Delivery O2 Flow Rate FiO2 07/13/21 09:00 69 25 132/62 (85) 94 Mechanical Ventilator 45.00 07/13/21 08:00 70 30 139/65 (88) 93 Mechanical Ventilator 45.00 07/13/21 08:00 Mechanical Ventilator 70 07/13/21 07:36 36.5 07/13/21 07:14 71 34 95 50 07/13/21 07:00 69 29 126/58 (82) 94 Mechanical Ventilator 45.00 07/13/21 07:00 77 07/13/21 06:00 69 25 121/61 (81) 98 Mechanical Ventilator 45.00 07/13/21 05:48 Mechanical Ventilator 45.00 07/13/21 05:45 Mechanical Ventilator 50.00 07/13/21 05:00 67 40 95 07/13/21 05:00 68 25 126/60 (82) 98 Mechanical Ventilator 60.00 07/13/21 04:00 67 25 122/59 (80) 98 Mechanical Ventilator 60.00 07/13/21 04:00 Mechanical Ventilator 70 07/13/21 03:47 36.6 Mechanical Ventilator 60.00 07/13/21 03:00 72 27 117/61 (79) 97 Mechanical Ventilator 70.00 07/13/21 02:29 Mechanical Ventilator 70.00 07/13/21 02:00 86 26 121/67 (85) 99 Mechanical Ventilator 100.00 07/13/21 01:22 96 32 90 100 07/13/21 01:15 Mechanical Ventilator 100.00 07/13/21 01:00 90 35 120/64 (82) 97 Mechanical Ventilator 70.00 07/13/21 01:00 104 07/13/21 00:49 36.6 07/13/21 00:48 60 123/58 07/13/21 00:00 60 25 123/58 (79) 95 Mechanical Ventilator 70.00 07/13/21 00:00 Mechanical Ventilator 70 07/12/21 23:00 62 27 126/69 (88) 96 Mechanical Ventilator 70.00 07/12/21 22:37 58 28 96 70 07/12/21 22:00 59 29 125/58 (80) 96 Mechanical Ventilator 70.00 07/12/21 21:07 Mechanical Ventilator 70.00 07/12/21 21:00 58 27 120/59 (79) 99 Mechanical Ventilator 100.00 07/12/21 20:00 63 26 126/60 (82) 95 Mechanical Ventilator 100.00 07/12/21 20:00 Mechanical Ventilator 60 07/12/21 19:55 Mechanical Ventilator 100.00 07/12/21 19:25 36.4 64 28 130/62 (84) 93 Mechanical Ventilator 60.00 07/12/21 19:00 62 07/12/21 18:26 62 28 93 60 07/12/21 18:00 63 28 126/60 (82) 92 Mechanical Ventilator 60.00 07/12/21 17:00 68 28 126/61 (82) 90 Mechanical Ventilator 60.00 07/12/21 16:51 126/61 07/12/21 16:51 126/61 07/12/21 16:00 64 29 122/59 (80) 93 Mechanical Ventilator 60.00 07/12/21 15:32 Mechanical Ventilator 60 07/12/21 15:00 68 29 121/57 (78) 92 Mechanical Ventilator 60.00 07/12/21 14:00 66 28 123/53 (76) 93 Mechanical Ventilator 60.00 07/12/21 13:00 64 28 115/52 (73) 95 Mechanical Ventilator 60.00 07/12/21 12:46 66 07/12/21 12:00 66 28 122/54 (76) 93 Mechanical Ventilator 60.00 07/12/21 11:33 Mechanical Ventilator 60 07/12/21 11:28 36.6 07/12/21 11:25 68 30 92 60 07/12/21 11:00 67 27 101/49 (66) 94 Mechanical Ventilator 60.00 07/12/21 10:00 67 26 119/53 (75) 96 Mechanical Ventilator 60.00 I & O 07/13/21 07:00 Intake Total 0 ml Output Total 4150 ml Balance -4150 ml Height & Weight Height: 5'6.00" Weight: 165lbs. 0.0oz. 74.940215fq; 26.89 BMI Method:Stated General Appearance: No Apparent Distress, WD/WN, Chronically ill HEENT: PERRL/EOMI, Normal ENT Inspection Neck: Full Range of Motion Respiratory: No Accessory Muscle Use, No Respiratory Distress, Decreased Breath Sounds, Rhonci Cardiovascular: Regular Rate, Rhythm Capillary Refill: Less Than 3 Seconds Gastrointestinal: normal bowel sounds, soft (But firm to the touch) Extremity: Normal Capillary Refill, Pedal Edema Neurologic/Psychiatric: Alert, Oriented x3, Other (sedated with IV 50 propofol and 50 fentnayl) Skin: Cool Results Lab Laboratory Tests 07/11/21 14:45 07/11/21 20:15 07/12/21 03:40 07/13/21 03:30 Assessment/Plan Assessment/Plan Severe Covid PNA outlook is poor pt is DNR continue abx, lovenox, IV decadron, sedation with propofol and now IV Fentanyl Critical Care: Ventilator Management Time spent with patient (mins): 30 RHEA SHIN MD Jul 13, 2021 09:43
--- NOTE | 2021-07-13 11:21 | Progress Note - Hospitalist ---
Subjective HPI/CC On Admission Date Seen by Provider: Jul 13, 2021 Time Seen by Provider: 11:10 Subjective/Events-last exam Patient now a DO NOT RESUSCITATE Poor prognosis Flash pulmonary edema last night at midnight so Hep-Lock IV fluid and gave Lasix IV x1 with 2000 urinary output Poor prognosis Review of Systems General: Fatigue Pulmonary: Dyspnea Objective Exam Vital Signs Vital Signs Date Time Temp Pulse Resp B/P (MAP) Pulse Ox O2 Delivery O2 Flow Rate FiO2 07/13/21 16:00 Mechanical Ventilator 45 07/13/21 15:46 119/52 07/13/21 15:00 64 22 95 45.00 07/13/21 12:43 36.9 Capillary Refill : Less Than 3 Seconds General Appearance: No Apparent Distress, WD/WN, Chronically ill, Other (Sedated and intubated) Respiratory: Decreased Breath Sounds Results/Procedures Lab Laboratory Tests 07/13/21 03:30 Patient resulted labs reviewed. Assessment/Plan Assessment and Plan Assess & Plan/Chief Complaint Assessment: COVID-19 pneumonia Acute hypoxic respiratory failure requiring ventilator management Advanced age of 81 Plan: DNR reasonable Prognosis poor 07/13/2021: DNR Poor prognosis Likely terminal extubation soon Critical Care Ventilator Management JAMEL ARRIETA DO Jul 13, 2021 11:21
[2021-07-13] MEDS ORDERED: TROUGH ORDER-PHARMACY XX NR (13:00)
[2021-07-13] MEDS: VANCOMYCIN 1250 MG/NS 250 ML IVPB IV SCH ×2 (14:22)
--- NOTE | 2021-07-13 20:40 | Tele-ICU Progress Note ---
Progress Note Pt with COVID pneumonia , desaturating and requiring 100% O2. CXR with some fluid overload. Lasix 40 mg x 1 ordered. Focused Exam Height, Weight, BMI Height: 5'6.00" Weight: 165lbs. 0.0oz. 74.513293ov; 26.89 BMI Method:Stated KAYDEN MONSALVE MD Jul 13, 2021 20:40
[2021-07-14] VITALS (30 sets, daily range): BP systolic 114–149; BP diastolic 57–74
[2021-07-14] MEDS: RT-ALBUTEROL HFA 8.5 GM INHALER IH SCH ×6 (01:47→23:23)
[2021-07-14 03:43] LABS: ABG OXYGEN SATURATION 90 % (94-100); ABG PCO2 40 MMHG (35-45); ABG PH 7.43 (7.37-7.43); ABG PO2 61 MMHG (79-93); ABG TCO2 27.2 MMOL/L (21.0-31.0)
[2021-07-14 03:44] LABS: BASOPHILS % (AUTO) 0 % (0-10); EOSINOPHILS % (AUTO) 0 % (0-10); HEMATOCRIT 29 % (40-54); HEMOGLOBIN 9.4 g/dL (13.3-17.7); LYMPHOCYTES # (AUTO) 0.6 10^3/uL (1.0-4.0); LYMPHOCYTES % (AUTO) 7 % (12-44); MEAN CORPUSCULAR HEMOGLOBIN 28 pg (25-34); MEAN CORPUSCULAR HGB CONC 32 g/dL (32-36); MEAN CORPUSCULAR VOLUME 87 fL (80-99); MEAN PLATELET VOLUME 10.4 fL (9.0-12.2); MONOCYTES # (AUTO) 0.3 10^3/uL (0.0-1.0); MONOCYTES % (AUTO) 4 % (0-12); NEUTROPHILS # (AUTO) 8.1 10^3/uL (1.8-7.8); NEUTROPHILS % (AUTO) 88 % (42-75); PLATELET COUNT 196 10^3/uL (130-400); WHITE BLOOD COUNT 9.1 10^3/uL (4.3-11.0)
[2021-07-14 03:53] LABS: ALLENS TEST NO; INSPIRED O2 45%; PATIENT TEMP 37; VENTILATOR YES
[2021-07-14 03:59] LABS: POTASSIUM 3.3 MMOL/L (3.6-5.0)
[2021-07-14 04:00] LABS: CALCIUM 6.9 MG/DL (8.5-10.1)
[2021-07-14 04:04] LABS: CREATININE SERUM 1.05 MG/DL (0.60-1.30); PHOSPHORUS 2.1 MG/DL (2.3-4.7)
[2021-07-14] MEDS: KCL 20 MEQ TAB (K-DUR) PO SCH (04:22)
[2021-07-14] MEDS: POTASSIUM CL 10MEQ/50ML IVPB 50 ML IV SCH ×5 (04:22→09:04)
[2021-07-14] MEDS: MAGNESIUM 1 GM/100 ML IVPB 100 ML IV SCH (04:22)
[2021-07-14] MEDS: inSUlin ASPART (NovoLOG) 1 UNIT/0.01 ML (CHARGE PER UNIT) SC SCH ×3 (04:22→16:51)
[2021-07-14] MEDS: CEFEPIME 1,000 MG/SWFI 10 ML IV PUSH IV SCH ×6 (05:04→18:35)
[2021-07-14] MEDS: fentaNYL DRIP PRE-MIX 250 ML IV SCH ×3 (06:00→20:30)
--- NOTE | 2021-07-14 06:51 | Occ Therapy Progress Note ---
Therapy Progress Note Pt is currently intubated. OT will continue to monitor pt status and initiate treatment when pt is medically stable and able to actively participate in skilled therapy. UMA CAST Jul 14, 2021 06:51
--- NOTE | 2021-07-14 06:56 | Progress Note ---
Subjective Date Seen by a Provider: Jul 14, 2021 Time Seen by a Provider: 06:45 Subjective/Events-last exam Patient remains intubated. He is off IV fluids currently due to flash pulmonary edema. An additional 40 mg of IV Lasix was given last evening. He is currently sedated with propofol Objective Exam Vital Signs Date Time Temp Pulse Resp B/P (MAP) Pulse Ox O2 Delivery O2 Flow Rate FiO2 07/14/21 05:01 78 24 84 07/14/21 05:01 36.7 07/14/21 05:00 73 24 140/72 (94) 95 Mechanical Ventilator 45.00 07/14/21 04:00 Mechanical Ventilator 50 07/14/21 04:00 66 24 124/61 (82) 96 Mechanical Ventilator 45.00 07/14/21 03:00 66 24 117/58 (77) 95 Mechanical Ventilator 45.00 07/14/21 02:00 69 24 121/57 (78) 95 Mechanical Ventilator 45.00 07/14/21 01:47 69 24 95 45 07/14/21 01:43 Mechanical Ventilator 45.00 07/14/21 01:32 37.0 Mechanical Ventilator 50.00 07/14/21 01:00 72 24 114/59 (77) 97 Mechanical Ventilator 60.00 07/14/21 01:00 72 07/14/21 00:00 Mechanical Ventilator 60 07/14/21 00:00 78 24 122/63 (82) 94 Mechanical Ventilator 60.00 07/13/21 23:58 89 133/60 07/13/21 23:57 89 133/60 07/13/21 23:54 37.2 Mechanical Ventilator 60.00 07/13/21 23:19 89 32 94 60 07/13/21 23:00 81 26 139/62 (87) 90 Mechanical Ventilator 60.00 07/13/21 22:00 81 24 126/68 (87) 95 Mechanical Ventilator 60.00 07/13/21 21:55 96 Mechanical Ventilator 60.00 07/13/21 21:41 98 Mechanical Ventilator 70.00 07/13/21 21:00 92 24 134/64 (87) 96 Mechanical Ventilator 85.00 07/13/21 20:00 Mechanical Ventilator 85 07/13/21 20:00 98 34 152/65 (94) 97 Mechanical Ventilator 85.00 07/13/21 19:30 37.6 80 30 127/63 (84) 95 Mechanical Ventilator 85.00 07/13/21 19:00 80 07/13/21 19:00 80 24 126/60 (82) 99 Mechanical Ventilator 100.00 07/13/21 18:04 89 32 94 100 07/13/21 18:00 85 32 133/60 (84) 96 Mechanical Ventilator 100.00 07/13/21 17:37 Mechanical Ventilator 100.00 07/13/21 17:00 84 31 152/69 (96) 93 Mechanical Ventilator 45.00 07/13/21 16:00 64 25 118/54 (75) 91 Mechanical Ventilator 45.00 07/13/21 16:00 Mechanical Ventilator 45 07/13/21 15:46 119/52 07/13/21 15:46 119/52 07/13/21 15:00 64 22 121/56 (77) 95 Mechanical Ventilator 45.00 07/13/21 15:00 64 24 94 45 07/13/21 14:00 64 24 115/59 (77) 96 Mechanical Ventilator 45.00 07/13/21 13:00 64 24 116/57 (73) 96 Mechanical Ventilator 45.00 07/13/21 12:58 65 07/13/21 12:43 36.9 07/13/21 12:00 64 25 116/59 (77) 93 Mechanical Ventilator 45.00 07/13/21 11:00 66 25 124/58 (80) 94 Mechanical Ventilator 45.00 07/13/21 11:00 Mechanical Ventilator 45 07/13/21 10:31 71 30 94 45 07/13/21 10:00 67 25 119/58 (78) 94 Mechanical Ventilator 45.00 07/13/21 09:00 69 25 132/62 (85) 94 Mechanical Ventilator 45.00 07/13/21 08:00 70 30 139/65 (88) 93 Mechanical Ventilator 45.00 07/13/21 08:00 Mechanical Ventilator 70 07/13/21 07:36 36.5 07/13/21 07:14 71 34 95 50 07/13/21 07:00 69 29 126/58 (82) 94 Mechanical Ventilator 45.00 07/13/21 07:00 77 I & O 07/14/21 07:00 Intake Total 0 ml Output Total 2525 ml Balance -2525 ml Capillary Refill : Less Than 3 Seconds General Appearance: No Apparent Distress (But is sedated and intubated) Neck: Supple Respiratory: Lungs Clear (In the apical areas), Crackles (Very faint in the bases) Cardiovascular: Regular Rate, Rhythm Gastrointestinal: soft Neurologic/Psychiatric: No Alert Skin: Cool Results Lab Laboratory Tests 07/13/21 11:50: Glucometer 129H 07/13/21 12:15: Triglycerides Level 844H, Vancomycin Level Trough 12.7 07/13/21 17:21: Glucometer 131H 07/13/21 23:52: Glucometer 119H 07/14/21 03:25: White Blood Count 9.1, Red Blood Count 3.36L, Hemoglobin 9.4L, Hematocrit 29L, Mean Corpuscular Volume 87, Mean Corpuscular Hemoglobin 28, Mean Corpuscular Hemoglobin Concent 32, Red Cell Distribution Width 15.5H, Platelet Count 196, Mean Platelet Volume 10.4, Immature Granulocyte % (Auto) 2, Neutrophils (%) (Auto) 88H, Lymphocytes (%) (Auto) 7L, Monocytes (%) (Auto) 4, Eosinophils (%) (Auto) 0, Basophils (%) (Auto) 0, Neutrophils # (Auto) 8.1H, Lymphocytes # (Auto) 0.6L, Monocytes # (Auto) 0.3, Eosinophils # (Auto) 0.0, Basophils # (Auto) 0.0, Immature Granulocyte # (Auto) 0.2H, Blood Gas Puncture Site LEFT RAD, Blood Gas Patient Temperature 37, Arterial Blood pH 7.43, Arterial Blood Partial Pressure CO2 40, Arterial Blood Partial Pressure O2 61L, Arterial Blood HCO3 26, Arterial Blood Total CO2 27.2, Arterial Blood Oxygen Saturation 90L, Arterial Blood Base Excess 2.0, Cuong Test NO, Blood Gas Ventilator Setting YES, Blood Gas Inspired Oxygen 45%, Sodium Level 137, Potassium Level 3.3L, Chloride Level 102, Carbon Dioxide Level 22, Anion Gap 13, Blood Urea Nitrogen 17, Creatinine 1.05, Estimat Glomerular Filtration Rate 68, BUN/Creatinine Ratio 16, Glucose Level 123H, Calcium Level 6.9L, Phosphorus Level 2.1L, Magnesium Level 2.0 Microbiology 07/11/21 Gram Stain, Resulted Pending 07/11/21 Sputum Culture - Preliminary, Resulted Usual upper respiratory fareed 07/10/21 Blood Culture - Preliminary, Resulted No growth 07/10/21 Urine Culture - Final, Complete NO GROWTH Assessment/Plan Assessment/Plan Assess & Plan/Chief Complaint 1. Bilateral pneumonia -Patient to be initiated on cefepime as well as vancomycin. 07/11 -Day #2 of cefepime and vancomycin -He is currently on Vapotherm as he was unable to maintain saturations on nasal cannula oxygen. -Day #5 of cefepime and vancomycin -eICU and pulmonary following 2. Coronavirus or COVID-19 infection -Respiratory care to keep his oxygen level in the mid 90 percentile 3. Hyponatremia -Monitor electrolytes 4. Nutritional status -Currently off IV fluids. -Consultation with dietary for tube feedings Clinical Quality Measures Admission Status Admission Dx 1. Bilateral pneumonia 2. Coronavirus or COVID-19 infection 3. Dehydration 4. Hyponatremia THADDEUS RAMAN MD Jul 14, 2021 06:56
--- NOTE | 2021-07-14 07:24 | Diagnostic Imaging Report ---
INDICATION: Respiratory failure Portable AP view of chest is obtained with comparison made to study of one day earlier. Bilateral airspace disease is stable or mildly improved. Endotracheal tube is in place with tip reaching the lower trachea. Nasogastric tube passes below the diaphragm and right upper extremity PICC is stable. IMPRESSION: Diffuse airspace disease is stable or mildly improved. The endotracheal tube reaches the lower trachea. Dictated by: Dictated on workstation # [id number]
--- NOTE | 2021-07-14 07:45 | Physical Therapy Progress Note ---
Therapy Progress Note Patient currently sedated and intubated. PT will continue to follow patient status and initiate treatment when patient is medically stable and able to actively participate with skilled therapy. JUDITH GE PT Jul 14, 2021 07:45
[2021-07-14] MEDS: PROPOFOL DRIP (ICU) 100 ML IV SCH ×4 (09:04→20:32)
[2021-07-14] MEDS: ASPIRIN E.C. 81 MG (ECOTRIN) TAB PO SCH (09:21)
[2021-07-14] MEDS: PANTOPRAZOLE 40 MG (PROTONIX) VIAL IV SCH (09:21)
[2021-07-14] MEDS ORDERED: MIDAZOLAM DRIP PRE-MIX 100 ML IV SCH (09:45)
--- NOTE | 2021-07-14 09:48 | Cardiology Progress Note ---
Subjective Date Seen by Provider: Jul 14, 2021 Time Seen by Provider: 09:47 Subjective/Events-last exam Patient is sedated and intubated. Review of Systems General: Other (Unable to provide review of system) Objective-Cardiology Exam Last Set of Vital Signs Vital Signs 07/14/21 07/14/21 07/14/21 07/14/21 06:00 07:38 08:00 09:05 Temp 36.8 Pulse 74 Resp 24 B/P (MAP) 134/78 Pulse Ox 92 O2 Delivery Mechanical Ventilator O2 Flow Rate 45.00 FiO2 45 I&O Intake and Output 07/14/21 00:00 Intake Total 0 ml Output Total 4025 ml Balance -4025 ml Intake Oral 0 ml Output Urine Total 4025 ml General: Other (Sedated and intubated) HEENT: Atraumatic Heart: Regular Rate Extremities: No Clubbing Skin: No Rashes Neuro: Other (Sedated and intubated) Psych/Mental Status: Other (Sedated and intubated) Results Lab Laboratory Tests 07/14/21 03:25 A/P-Cardiology Admission Diagnosis Acute respiratory failure Pneumonia COVID-19 Non-ST elevation myocardial infarction Assessment/Plan Acute respiratory failure secondary to COVID-19 pneumonia, ventilator dependent, managed by primary care team Non-ST elevation myocardial infarction, probably type II myocardial infarction secondary to severe hypoxemia. EKG reviewed did not show any acute ST elevation, patient has left anterior fascicular block. Has significant elevation in troponin. Underlying coronary artery disease cannot be entirely excluded. patient was started on Lovenox and aspirin and continue to monitor Hypertension, has been on bisoprolol, lisinopril and hydrochlorothiazide as an outpatient. Continue to monitor blood pressure Hyponatremia, improving slowly, probably secondary to pneumonia. Continue to monitor Hypokalemia, replace and monitor Anemia. Continue to monitor RAMSEY MACKENZIE MD Jul 14, 2021 09:48
--- NOTE | 2021-07-14 09:57 | Tele-ICU Progress Note ---
Subjective Date Seen by a Provider: Jul 14, 2021 Time Seen by a Provider: 09:56 Sepsis Event Evaluation Height, Weight, BMI Height: 5'6.00" Weight: 165lbs. 0.0oz. 74.966813qj; 26.89 BMI Method:Stated Exam Exam Patient acknowledged, consented, and participated in this virtual visit which was conducted using real time audio/video Vital Signs Date Time Temp Pulse Resp B/P (MAP) Pulse Ox O2 Delivery O2 Flow Rate FiO2 07/14/21 09:05 134/78 07/14/21 09:04 134/74 07/14/21 08:00 36.8 07/14/21 07:38 74 24 92 45 07/14/21 06:11 69 07/14/21 06:00 65 24 121/62 (81) 100 Mechanical Ventilator 45.00 07/14/21 05:01 78 24 84 07/14/21 05:01 36.7 07/14/21 05:00 73 24 140/72 (94) 95 Mechanical Ventilator 45.00 07/14/21 04:00 Mechanical Ventilator 50 07/14/21 04:00 66 24 124/61 (82) 96 Mechanical Ventilator 45.00 07/14/21 03:00 66 24 117/58 (77) 95 Mechanical Ventilator 45.00 07/14/21 02:00 69 24 121/57 (78) 95 Mechanical Ventilator 45.00 07/14/21 01:47 69 24 95 45 07/14/21 01:43 Mechanical Ventilator 45.00 07/14/21 01:32 37.0 Mechanical Ventilator 50.00 07/14/21 01:00 72 24 114/59 (77) 97 Mechanical Ventilator 60.00 07/14/21 01:00 72 07/14/21 00:00 Mechanical Ventilator 60 07/14/21 00:00 78 24 122/63 (82) 94 Mechanical Ventilator 60.00 07/13/21 23:58 89 133/60 07/13/21 23:57 89 133/60 07/13/21 23:54 37.2 Mechanical Ventilator 60.00 07/13/21 23:19 89 32 94 60 07/13/21 23:00 81 26 139/62 (87) 90 Mechanical Ventilator 60.00 07/13/21 22:00 81 24 126/68 (87) 95 Mechanical Ventilator 60.00 07/13/21 21:55 96 Mechanical Ventilator 60.00 07/13/21 21:41 98 Mechanical Ventilator 70.00 07/13/21 21:00 92 24 134/64 (87) 96 Mechanical Ventilator 85.00 07/13/21 20:00 Mechanical Ventilator 85 07/13/21 20:00 98 34 152/65 (94) 97 Mechanical Ventilator 85.00 07/13/21 19:30 37.6 80 30 127/63 (84) 95 Mechanical Ventilator 85.00 07/13/21 19:00 80 07/13/21 19:00 80 24 126/60 (82) 99 Mechanical Ventilator 100.00 07/13/21 18:04 89 32 94 100 07/13/21 18:00 85 32 133/60 (84) 96 Mechanical Ventilator 100.00 07/13/21 17:37 Mechanical Ventilator 100.00 07/13/21 17:00 84 31 152/69 (96) 93 Mechanical Ventilator 45.00 07/13/21 16:00 64 25 118/54 (75) 91 Mechanical Ventilator 45.00 07/13/21 16:00 Mechanical Ventilator 45 07/13/21 15:46 119/52 07/13/21 15:46 119/52 07/13/21 15:00 64 22 121/56 (77) 95 Mechanical Ventilator 45.00 07/13/21 15:00 64 24 94 45 07/13/21 14:00 64 24 115/59 (77) 96 Mechanical Ventilator 45.00 07/13/21 13:00 64 24 116/57 (73) 96 Mechanical Ventilator 45.00 07/13/21 12:58 65 07/13/21 12:43 36.9 07/13/21 12:00 64 25 116/59 (77) 93 Mechanical Ventilator 45.00 07/13/21 11:00 66 25 124/58 (80) 94 Mechanical Ventilator 45.00 07/13/21 11:00 Mechanical Ventilator 45 07/13/21 10:31 71 30 94 45 07/13/21 10:00 67 25 119/58 (78) 94 Mechanical Ventilator 45.00 I & O 07/14/21 07:00 Intake Total 350 ml Output Total 2525 ml Balance -2175 ml Height & Weight Height: 5'6.00" Weight: 165lbs. 0.0oz. 74.549984rp; 26.89 BMI Method:Stated General Appearance: No Apparent Distress (But is sedated and intubated) HEENT: PERRL/EOMI, Normal ENT Inspection Neck: Supple Respiratory: Lungs Clear (In the apical areas), Crackles (Very faint in the bases) Cardiovascular: Regular Rate, Rhythm Capillary Refill: Less Than 3 Seconds Gastrointestinal: soft Extremity: Normal Capillary Refill, Pedal Edema Neurologic/Psychiatric: No Alert Skin: Cool Results Lab Laboratory Tests 07/13/21 03:30 07/14/21 03:25 Assessment/Plan Assessment/Plan (Tele-ICU Physician , Progress Note ) Available chart/ vitals / labs / Images reviewed Video assessment done using teleICU camera, rest of exam as per RN Discussed with RN , EXAM PER RN Events overnight : diuresis for desats Afebrile I/O = neg 4 L Drips: Pressors: , hemodynamically stable Sedation gtt: ( RASS -3) perop 50 . fentanyl 75 , agitated , not follow c ommands 07/14 VENT SETTINGS. AC 24 390 45% +10 ABG reviewed Not candidate for SBT today Consultants: cards Hospital course: 07/10 - COVID PNA 07/11 - INTUBATED 07/14=- AC 24 tv 390 + 10 60 % Consultants: A/P AHRF / ARDS due to severe COVID19 ( no PE on CT 07/10 -intubated 07/11 - AC 24 tv 390 + 10 60 % - not proning VSPI-Mesfsdagdfa-2/COVID-19 PNA ( Not vaccinated , exposure 06/29 , COvid vaccine 07/02 , Dx 07/10 -Steroids IV - started 07/10 -Hypercoagulable state , DDIMER 0.75 on 07/10 -> was started on fill lovenox dose 07/11 ( no evidence of large PE on CT 07/10 ) Suspected superimposed bact PNA -empiric abx started 07/10 ( PCY 0.28 ) - cefepime as well as vancomycin. Cx sputum 07/11 - nl fareed EITAN - mild - follow Hyponatremia ( on admission , on HCTZ [employer] ) - WNL now TGL-emia - >800 - on propofol CHANGING 07/14 to vresed , weaning off propofol Anemia - mild , no active bleeding Large HH on CT Lines : periph , (Central Line Necessity Reviewed) Ramirez: 07/11 O/27 Nutrition: start today Analgesia: Anxiety/ delirium VTE Prophylaxis: lovenox proph Stress Ulcer Prophylaxis: PPI Glycemic Control: + Plans in collaboration with bedside consultants and IM MDs. Discussed with RN to reach out if any questions or concerns A total of 60 minutes of critical care time was devoted to this patient today, required to treat and/or prevent further deterioration of critical care condition ( as above ) . MARIA ESTHER DELGADO MD Jul 14, 2021 09:57
[2021-07-14] MEDS: ENOXAPARIN 80 MG/0.8 ML (LOVENOX) SYR SC SCH ×2 (10:37→20:30)
[2021-07-14] MEDS: MIDAZOLAM DRIP PRE-MIX 100 ML IV SCH (12:27)
[2021-07-14] MEDS: VANCOMYCIN 1250 MG/NS 250 ML IVPB IV SCH ×2 (15:50)
[2021-07-15] VITALS (29 sets, daily range): BP systolic 117–165; BP diastolic 56–80
[2021-07-15] MEDS: CEFEPIME 1,000 MG/SWFI 10 ML IV PUSH IV SCH ×4 (00:03→06:09)
[2021-07-15] MEDS: inSUlin ASPART (NovoLOG) 1 UNIT/0.01 ML (CHARGE PER UNIT) SC SCH ×5 (00:40→23:32)
[2021-07-15] MEDS: RT-ALBUTEROL HFA 8.5 GM INHALER IH SCH ×6 (02:57→21:32)
[2021-07-15] MEDS: fentaNYL DRIP PRE-MIX 250 ML IV SCH ×3 (03:45→18:24)
[2021-07-15 03:46] LABS: ABG BASE EXCESS 0.9 MMOL/L (-2.5-2.5); ABG OXYGEN SATURATION 90 % (94-100); ABG PCO2 37 MMHG (35-45); ABG PH 7.44 (7.37-7.43); ABG PO2 61 MMHG (79-93); ABG TCO2 25.8 MMOL/L (21.0-31.0)
[2021-07-15 03:47] LABS: ALLENS TEST YES-POS; BASOPHILS % (AUTO) 0 % (0-10); EOSINOPHILS % (AUTO) 0 % (0-10); HEMATOCRIT 28 % (40-54); INSPIRED O2 35%; LYMPHOCYTES # (AUTO) 0.5 10^3/uL (1.0-4.0); LYMPHOCYTES % (AUTO) 5 % (12-44); MEAN CORPUSCULAR HEMOGLOBIN 28 pg (25-34); MEAN CORPUSCULAR HGB CONC 32 g/dL (32-36); MEAN CORPUSCULAR VOLUME 87 fL (80-99); MEAN PLATELET VOLUME 10.8 fL (9.0-12.2); MONOCYTES # (AUTO) 0.4 10^3/uL (0.0-1.0); MONOCYTES % (AUTO) 4 % (0-12); NEUTROPHILS # (AUTO) 7.4 10^3/uL (1.8-7.8); NEUTROPHILS % (AUTO) 88 % (42-75); PATIENT TEMP 35.6; PLATELET COUNT 193 10^3/uL (130-400); VENTILATOR YES; WHITE BLOOD COUNT 8.4 10^3/uL (4.3-11.0)
[2021-07-15 03:56] LABS: POTASSIUM 3.7 MMOL/L (3.6-5.0)
[2021-07-15 03:57] LABS: CALCIUM 6.9 MG/DL (8.5-10.1)
[2021-07-15 04:01] LABS: CREATININE SERUM 0.81 MG/DL (0.60-1.30); PHOSPHORUS 2.1 MG/DL (2.3-4.7)
[2021-07-15 04:04] LABS: MAGNESIUM 2.2 MG/DL (1.6-2.4)
[2021-07-15] MEDS: POTASSIUM CL 10MEQ/50ML IVPB 50 ML IV SCH (04:06)
[2021-07-15] MEDS: MAGNESIUM 1 GM/100 ML IVPB 100 ML IV SCH (04:06)
[2021-07-15] MEDS: KCL 20 MEQ TAB (K-DUR) PO SCH (04:06)
--- NOTE | 2021-07-15 06:54 | Progress Note ---
Subjective Date Seen by a Provider: Jul 15, 2021 Time Seen by a Provider: 06:40 Subjective/Events-last exam Patient remains intubated. He is now receiving tube feedings for nutrition. Objective Exam Vital Signs Date Time Temp Pulse Resp B/P (MAP) Pulse Ox O2 Delivery O2 Flow Rate FiO2 07/15/21 06:48 Mechanical Ventilator 55.00 07/15/21 06:28 51 24 94 35 07/15/21 05:00 53 24 140/71 (114) 95 Mechanical Ventilator 45.00 07/15/21 04:00 54 24 133/62 (90) 92 Mechanical Ventilator 45.00 07/15/21 04:00 35.8 07/15/21 04:00 Mechanical Ventilator 35 07/15/21 03:00 53 24 141/72 (112) 95 Mechanical Ventilator 45.00 07/15/21 02:58 53 24 95 35 07/15/21 02:00 57 24 129/61 (95) 93 Mechanical Ventilator 45.00 07/15/21 01:00 57 07/15/21 01:00 57 24 135/65 (97) 93 Mechanical Ventilator 45.00 07/15/21 00:11 36.5 07/15/21 00:00 56 24 125/56 (84) 94 Mechanical Ventilator 45.00 07/15/21 00:00 Mechanical Ventilator 35 07/14/21 23:24 55 24 94 35 07/14/21 23:00 56 24 137/68 (92) 95 Mechanical Ventilator 45.00 07/14/21 22:00 59 24 139/64 (96) 95 Mechanical Ventilator 45.00 07/14/21 21:00 60 24 138/65 (96) 95 Mechanical Ventilator 45.00 07/14/21 20:32 64 126/67 07/14/21 20:31 64 126/67 07/14/21 20:24 35.4 07/14/21 20:00 62 24 138/63 (93) 94 Mechanical Ventilator 45.00 07/14/21 20:00 Mechanical Ventilator 35 07/14/21 19:07 64 24 94 35 07/14/21 19:00 63 24 136/63 (87) 94 Mechanical Ventilator 45.00 07/14/21 19:00 63 07/14/21 18:00 63 24 145/70 (95) 98 Mechanical Ventilator 45.00 07/14/21 17:00 62 24 140/68 (92) 97 Mechanical Ventilator 45.00 07/14/21 16:00 Mechanical Ventilator 40 07/14/21 16:00 65 24 140/68 (92) 95 Mechanical Ventilator 45.00 07/14/21 15:58 36.2 07/14/21 15:00 67 24 130/60 (83) 98 Mechanical Ventilator 45.00 07/14/21 14:46 67 24 95 45 07/14/21 14:00 68 24 136/61 (86) 97 Mechanical Ventilator 45.00 07/14/21 13:00 69 24 137/62 (87) 96 Mechanical Ventilator 45.00 07/14/21 12:33 71 07/14/21 12:27 80 21 139/72 07/14/21 12:00 Mechanical Ventilator 45 07/14/21 12:00 73 24 134/62 (86) 93 Mechanical Ventilator 45.00 07/14/21 11:40 37.3 07/14/21 11:00 80 21 139/72 (94) 94 Mechanical Ventilator 45.00 07/14/21 10:58 80 24 92 45 07/14/21 10:00 68 24 125/62 (83) 99 Mechanical Ventilator 45.00 07/14/21 09:05 134/78 07/14/21 09:04 134/74 07/14/21 09:00 82 24 134/74 (94) 81 Mechanical Ventilator 45.00 07/14/21 08:00 67 24 149/69 (95) 98 Mechanical Ventilator 45.00 07/14/21 08:00 Mechanical Ventilator 45 07/14/21 08:00 36.8 07/14/21 07:38 74 24 92 45 07/14/21 07:00 63 24 121/59 (79) 97 Mechanical Ventilator 45.00 I & O 07/15/21 07:00 Intake Total 460 ml Output Total 1150 ml Balance -690 ml Capillary Refill : Less Than 3 Seconds General Appearance: No Apparent Distress (but sedated) Neck: Supple Respiratory: No Accessory Muscle Use, Decreased Breath Sounds (in bases) Cardiovascular: Regular Rate, Rhythm Gastrointestinal: No distended; other (firm ) Skin: Cool Results Lab Laboratory Tests 07/14/21 11:18: Glucometer 125H 07/14/21 16:31: Glucometer 154H 07/15/21 00:10: Glucometer 135H 07/15/21 03:40: White Blood Count 8.4, Red Blood Count 3.27L, Hemoglobin 9.0L, Hematocrit 28L, Mean Corpuscular Volume 87, Mean Corpuscular Hemoglobin 28, Mean Corpuscular Hemoglobin Concent 32, Red Cell Distribution Width 15.6H, Platelet Count 193, Mean Platelet Volume 10.8, Immature Granulocyte % (Auto) 2, Neutrophils (%) (Auto) 88H, Lymphocytes (%) (Auto) 5L, Monocytes (%) (Auto) 4, Eosinophils (%) (Auto) 0, Basophils (%) (Auto) 0, Neutrophils # (Auto) 7.4, Lymphocytes # (Auto) 0.5L, Monocytes # (Auto) 0.4, Eosinophils # (Auto) 0.0, Basophils # (Auto) 0.0, Immature Granulocyte # (Auto) 0.2H, Blood Gas Puncture Site RIGHT RADIAL, Blood Gas Patient Temperature 35.6, Arterial Blood pH 7.44H, Arterial Blood Partial Pressure CO2 37, Arterial Blood Partial Pressure O2 61L, Arterial Blood HCO3 25, Arterial Blood Total CO2 25.8, Arterial Blood Oxygen Saturation 90L, Arterial Bl ood Base Excess 0.9, Cuong Test YES-POS, Blood Gas Ventilator Setting YES, Blood Gas Inspired Oxygen 35%, Sodium Level 136, Potassium Level 3.7, Chloride Level 104, Carbon Dioxide Level 22, Anion Gap 10, Blood Urea Nitrogen 21H, Creatinine 0.81, Estimat Glomerular Filtration Rate 92, BUN/Creatinine Ratio 26, Glucose Level 121H, Calcium Level 6.9L, Phosphorus Level 2.1L, Magnesium Level 2.2, Triglycerides Level 241H Microbiology 07/11/21 Gram Stain, Resulted Pending 07/11/21 Sputum Culture - Preliminary, Resulted Usual upper respiratory fareed 07/10/21 Blood Culture - Preliminary, Resulted No growth 07/10/21 Urine Culture - Final, Complete NO GROWTH Radiology [facility], [place] NAME: [facility] REC#: [id number] PT STATUS: ADM IN : 1940 PHYSICIAN: MARIA ESTHER DELGADO MD ADMIT DATE: 07/10/21/ICU Signed Date of Exam:07/14/21 CHEST 1 VIEW, AP/PA ONLY INDICATION: Respiratory failure Portable AP view of chest is obtained with comparison made to study of one day earlier. Bilateral airspace disease is stable or mildly improved. Endotracheal tube is in place with tip reaching the lower trachea. Nasogastric tube passes below the diaphragm and right upper extremity PICC is stable. IMPRESSION: Diffuse airspace disease is stable or mildly improved. The endotracheal tube reaches the lower trachea. Dictated by: Dictated on workstation # [id number] Dict: 07/14/21718 Trans: 07/14/21819 CVB [id number] Interpreted by: VIKY SAUCEDA MD Electronically signed by: VIKY SAUCEDA MD 07/14/21819 Assessment/Plan Assessment/Plan Assess & Plan/Chief Complaint 1. Bilateral pneumonia -Patient to be initiated on cefepime as well as vancomycin. 07/11 -Day #2 of cefepime and vancomycin -He is currently on Vapotherm as he was unable to maintain saturations on nasal cannula oxygen. -Day #5 of cefepime and vancomycin -eICU and pulmonary following 07/15 -Day #6 cefepime and vancomycin -He remains intubated and FiO2 at 35 -CXR noted 2. Coronavirus or COVID-19 infection -Respiratory care to keep his oxygen level in the mid 90 percentile 3. Hyponatremia -Monitor electrolytes 4. Nutritional status -Currently off IV fluids. -Consultation with dietary for tube feedings 07/15 -Tube feedings initiated -Abdomen a little firm but not distended, will continue to monitor Clinical Quality Measures Admission Status Admission Dx 1. Bilateral pneumonia 2. Coronavirus or COVID-19 infection 3. Dehydration 4. Hyponatremia THADDEUS RAMAN MD Jul 15, 2021 06:54
--- NOTE | 2021-07-15 06:57 | Occ Therapy Progress Note ---
Therapy Progress Note Pt is currently intubated. OT will continue to monitor pt status and initiate treatment when pt is medically stable and able to actively participate in skilled therapy. UMA CAST Jul 15, 2021 06:57
--- NOTE | 2021-07-15 07:24 | Physical Therapy Progress Note ---
Therapy Progress Note Patient currently sedated and intubated. PT will continue to follow patient status and initiate treatment when patient is medically stable and able to actively participate with skilled therapy. JUDITH GE PT Jul 15, 2021 07:24
[2021-07-15] MEDS: PANTOPRAZOLE 40 MG (PROTONIX) VIAL IV SCH (08:59)
[2021-07-15] MEDS: ASPIRIN E.C. 81 MG (ECOTRIN) TAB PO SCH (08:59)
--- NOTE | 2021-07-15 09:31 | Tele-ICU Progress Note ---
Subjective Date Seen by a Provider: Jul 15, 2021 Time Seen by a Provider: 09:31 Sepsis Event Evaluation Height, Weight, BMI Height: 5'6.00" Weight: 165lbs. 0.0oz. 74.301222ce; 26.89 BMI Method:Stated Exam Exam Patient acknowledged, consented, and participated in this virtual visit which was conducted using real time audio/video Vital Signs Date Time Temp Pulse Resp B/P (MAP) Pulse Ox O2 Delivery O2 Flow Rate FiO2 07/15/21 09:00 35.9 07/15/21 08:45 95 Mechanical Ventilator 55 07/15/21 06:48 86 55 07/15/21 06:48 Mechanical Ventilator 55.00 07/15/21 06:41 60 07/15/21 06:28 51 24 94 35 07/15/21 06:00 51 24 144/73 (96) 94 Mechanical Ventilator 45.00 07/15/21 05:00 53 24 140/71 (114) 95 Mechanical Ventilator 45.00 07/15/21 04:00 54 24 133/62 (90) 92 Mechanical Ventilator 45.00 07/15/21 04:00 35.8 07/15/21 04:00 Mechanical Ventilator 35 07/15/21 03:00 53 24 141/72 (112) 95 Mechanical Ventilator 45.00 07/15/21 02:58 53 24 95 35 07/15/21 02:00 57 24 129/61 (95) 93 Mechanical Ventilator 45.00 07/15/21 01:00 57 07/15/21 01:00 57 24 135/65 (97) 93 Mechanical Ventilator 45.00 07/15/21 00:11 36.5 07/15/21 00:00 56 24 125/56 (84) 94 Mechanical Ventilator 45.00 07/15/21 00:00 Mechanical Ventilator 35 07/14/21 23:24 55 24 94 35 07/14/21 23:00 56 24 137/68 (92) 95 Mechanical Ventilator 45.00 07/14/21 22:00 59 24 139/64 (96) 95 Mechanical Ventilator 45.00 07/14/21 21:00 60 24 138/65 (96) 95 Mechanical Ventilator 45.00 07/14/21 20:32 64 126/67 07/14/21 20:31 64 126/67 07/14/21 20:24 35.4 07/14/21 20:00 62 24 138/63 (93) 94 Mechanical Ventilator 45.00 07/14/21 20:00 Mechanical Ventilator 35 07/14/21 19:07 64 24 94 35 07/14/21 19:00 63 24 136/63 (87) 94 Mechanical Ventilator 45.00 07/14/21 19:00 63 07/14/21 18:00 63 24 145/70 (95) 98 Mechanical Ventilator 45.00 07/14/21 17:00 62 24 140/68 (92) 97 Mechanical Ventilator 45.00 07/14/21 16:00 Mechanical Ventilator 40 07/14/21 16:00 65 24 140/68 (92) 95 Mechanical Ventilator 45.00 07/14/21 15:58 36.2 07/14/21 15:00 67 24 130/60 (83) 98 Mechanical Ventilator 45.00 07/14/21 14:46 67 24 95 45 07/14/21 14:00 68 24 136/61 (86) 97 Mechanical Ventilator 45.00 07/14/21 13:00 69 24 137/62 (87) 96 Mechanical Ventilator 45.00 07/14/21 12:33 71 07/14/21 12:27 80 21 139/72 07/14/21 12:00 Mechanical Ventilator 45 07/14/21 12:00 73 24 134/62 (86) 93 Mechanical Ventilator 45.00 07/14/21 11:40 37.3 07/14/21 11:00 80 21 139/72 (94) 94 Mechanical Ventilator 45.00 07/14/21 10:58 80 24 92 45 07/14/21 10:00 68 24 125/62 (83) 99 Mechanical Ventilator 45.00 I & O 07/15/21 07:00 Intake Total 460 ml Output Total 1150 ml Balance -690 ml Height & Weight Height: 5'6.00" Weight: 165lbs. 0.0oz. 74.344932tf; 26.89 BMI Method:Stated General Appearance: No Apparent Distress (but sedated) HEENT: PERRL/EOMI, Normal ENT Inspection Neck: Supple Respiratory: No Accessory Muscle Use, Decreased Breath Sounds (in bases) Cardiovascular: Regular Rate, Rhythm Capillary Refill: Less Than 3 Seconds Gastrointestinal: No distended; other (firm ) Extremity: Normal Capillary Refill, Pedal Edema Neurologic/Psychiatric: No Alert Skin: Cool Results Lab Laboratory Tests 07/14/21 03:25 07/15/21 03:40 Assessment/Plan Assessment/Plan (Tele-ICU Physician , Progress Note ) Available chart/ vitals / labs / Images reviewed Video assessment done using teleICU camera, rest of exam as per RN Discussed with RN , EXAM PER RN Events overnight : diuresis for desats Afebrile I/O = neg 700 Drips: Pressors: , hemodynamically stable Sedation gtt: ( RASS -3) prop 20 . fentanyl 75 , versed 4 agitated , not follow commands 07/14 VENT SETTINGS. AC 24 390 55% +14 ABG reviewed Not candidate for SBT today Consultants: romeo Hospital course: 07/10 - COVID PNA 07/11 - INTUBATED 07/14=- AC 24 tv 390 + 10 60 % 07/15 - 55% +14 Consultants: A/P AHRF / ARDS due to severe COVID19 ( no PE on CT 07/10 -intubated 07/11 - AC 20 tv 390 + 8 55 % - not proning FVDP-Vxbrxmxrajt-1/COVID-19 PNA ( Not vaccinated , exposure 06/29 , COvid vaccine 07/02 , Dx 07/10 -Steroids IV - started 07/10 -Hypercoagulable state , DDIMER 0.75 on 07/10 -> was started on fill lovenox dose 07/11 ( no evidence of large PE on CT 07/10 ) Suspected superimposed bact PNA -empiric abx started 07/10 ( PCY 0.28 ) - cefepime as well as vancomycin. Cx sputum 07/11 - nl fareed EITAN - mild - resolved Hyponatremia ( on admission , on HCTZ [employer] ) - WNL now TGL-emia - >800 - on propofol CHANGING 07/14 to vresed , weaning off propofol- TGL 240 Anemia - mild , no active bleeding Large HH on CT Lines : periph , (Central Line Necessity Reviewed) Ramirez: 07/11 O/27 Nutrition: 30/h TF Analgesia: Anxiety/ delirium VTE Prophylaxis: lovenox proph Stress Ulcer Prophylaxis: PPI Glycemic Control: + Plans in collaboration with bedside consultants and IM MDs. Discussed with RN to reach out if any questions or concerns A total of 37 minutes of critical care time was devoted to this patient today, required to treat and/or prevent further deterioration of critical care c ondition ( as above ) . MARIA ESTHER DELGADO MD Jul 15, 2021 09:31
[2021-07-15] MEDS: ENOXAPARIN 80 MG/0.8 ML (LOVENOX) SYR SC SCH ×2 (10:28→21:42)
[2021-07-15] MEDS: MIDAZOLAM DRIP PRE-MIX 100 ML IV SCH (10:29)
--- NOTE | 2021-07-15 12:22 | Cardiology Progress Note ---
Subjective Date Seen by Provider: Jul 15, 2021 Time Seen by Provider: 08:00 Subjective/Events-last exam Patient is sedated, ventilator dependent Review of Systems General: Other (Unable to provide review of system) Objective-Cardiology Exam Last Set of Vital Signs Vital Signs 07/15/21 07/15/21 07/15/21 09:00 11:00 11:05 Temp 35.9 Pulse 60 Resp 22 B/P (MAP) 151/66 (94) Pulse Ox 98 O2 Delivery Mechanical Ventilator O2 Flow Rate 55.00 FiO2 55 I&O Intake and Output 07/15/21 00:00 Intake Total 490 ml Output Total 1275 ml Balance -785 ml Intake Oral 0 ml IV Total 350 ml Tube Feeding 40 ml Other 100 ml Output Urine Total 1275 ml General: Other (Sedated and intubated) HEENT: Atraumatic Heart: Regular Rate Extremities: No Clubbing Skin: No Rashes Neuro: Other (Sedated and intubated) Psych/Mental Status: Other (Sedated and intubated) Results Lab Laboratory Tests 07/15/21 03:40 A/P-Cardiology Admission Diagnosis Acute respiratory failure Pneumonia COVID-19 Non-ST elevation myocardial infarction Assessment/Plan Acute respiratory failure secondary to COVID-19 pneumonia, ventilator dependent, managed by primary care team Non-ST elevation myocardial infarction, probably type II myocardial infarction secondary to severe hypoxemia. EKG reviewed did not show any acute ST elevation, patient has left anterior fascicular block. Has significant elevation in troponin. Underlying coronary artery disease cannot be entirely excluded. Maintained on Lovenox and aspirin. Continue to monitor Hypertension, has been on bisoprolol, lisinopril and hydrochlorothiazide as an outpatient. Continue to monitor blood pressure Electrolyte imbalance with hyponatremia, hypokalemia, better at this time. Continue to monitor Anemia. Continue to monitor RAMSEY MACKENZIE MD Jul 15, 2021 12:22
[2021-07-15] MEDS: PROPOFOL DRIP (ICU) 100 ML IV SCH ×2 (18:23→18:24)
[2021-07-16] VITALS (30 sets, daily range): BP systolic 117–164; BP diastolic 54–72
[2021-07-16] MEDS: fentaNYL DRIP PRE-MIX 250 ML IV SCH ×4 (01:28→20:19)
[2021-07-16] MEDS: RT-ALBUTEROL HFA 8.5 GM INHALER IH SCH ×6 (02:41→22:37)
[2021-07-16 03:09] LABS: ABG BASE EXCESS 1.8 MMOL/L (-2.5-2.5); ABG OXYGEN SATURATION 95 % (94-100); ABG PCO2 35 MMHG (35-45); ABG PH 7.47 (7.37-7.43); ABG PO2 73 MMHG (79-93); ABG TCO2 26.2 MMOL/L (21.0-31.0); ALLENS TEST YES-POS; BASOPHILS % (AUTO) 0 % (0-10); EOSINOPHILS % (AUTO) 0 % (0-10); HEMATOCRIT 30 % (40-54); HEMOGLOBIN 9.6 g/dL (13.3-17.7); INSPIRED O2 50%; LYMPHOCYTES # (AUTO) 0.7 10^3/uL (1.0-4.0); LYMPHOCYTES % (AUTO) 5 % (12-44); MEAN CORPUSCULAR HEMOGLOBIN 28 pg (25-34); MEAN CORPUSCULAR HGB CONC 32 g/dL (32-36); MEAN CORPUSCULAR VOLUME 87 fL (80-99); MEAN PLATELET VOLUME 10.8 fL (9.0-12.2); MONOCYTES # (AUTO) 0.5 10^3/uL (0.0-1.0); MONOCYTES % (AUTO) 4 % (0-12); NEUTROPHILS # (AUTO) 11.2 10^3/uL (1.8-7.8); NEUTROPHILS % (AUTO) 88 % (42-75); PATIENT TEMP 37.1; PLATELET COUNT 260 10^3/uL (130-400); VENTILATOR YES; WHITE BLOOD COUNT 12.7 10^3/uL (4.3-11.0)
[2021-07-16 03:21] LABS: POTASSIUM 3.9 MMOL/L (3.6-5.0)
[2021-07-16 03:23] LABS: CALCIUM 7.2 MG/DL (8.5-10.1)
[2021-07-16 03:27] LABS: CREATININE SERUM 0.86 MG/DL (0.60-1.30)
[2021-07-16 03:29] LABS: MAGNESIUM 2.3 MG/DL (1.6-2.4)
[2021-07-16 03:31] LABS: PHOSPHORUS 0.7 MG/DL (2.3-4.7)
--- NOTE | 2021-07-16 03:42 | Progress Note ---
Standard Progress Note Progress Notes/Assess & Plan Date Seen by a Provider: Jul 16, 2021 Time Seen by a Provider: 03:42 Progress/Assessment & Plan called for low phosphorus 0.7, will order 30 mmoles of IV potassium phosphate to be given over 4 hours Final Diagnosis low phosphate RHEA SHIN MD Jul 16, 2021 03:42
[2021-07-16] MEDS ORDERED: POTASSIUM PHOSPHATE INJ 30 MM in NS (IVPB) 250 ML IV ONE ×2 (03:45→09:00)
[2021-07-16] MEDS: inSUlin ASPART (NovoLOG) 1 UNIT/0.01 ML (CHARGE PER UNIT) SC SCH ×4 (03:58→23:46)
[2021-07-16] MEDS: MAGNESIUM 1 GM/100 ML IVPB 100 ML IV SCH (03:58)
[2021-07-16] MEDS: KCL 20 MEQ TAB (K-DUR) PO SCH (03:58)
[2021-07-16] MEDS: POTASSIUM CL 10MEQ/50ML IVPB 50 ML IV SCH (03:58)
[2021-07-16] MEDS: PROPOFOL DRIP (ICU) 100 ML IV SCH ×3 (04:45→23:25)
--- NOTE | 2021-07-16 06:50 | Progress Note ---
Subjective Date Seen by a Provider: Jul 16, 2021 Time Seen by a Provider: 06:35 Subjective/Events-last exam Mr. Don remains intubated. Yesterday his oxygenation percentage had increased from 35-50 and now back down to 40%. The tube feedings are currently on hold. His urine output remains adequate at 200 cc Objective Exam Vital Signs Date Time Temp Pulse Resp B/P (MAP) Pulse Ox O2 Delivery O2 Flow Rate FiO2 07/16/21 06:00 105 22 131/60 (83) 97 Mechanical Ventilator 40.00 07/16/21 05:43 Mechanical Ventilator 40.00 07/16/21 05:00 110 23 122/62 (83) 99 Mechanical Ventilator 45.00 07/16/21 05:00 95 30 96 07/16/21 04:53 Mechanical Ventilator 45.00 07/16/21 04:45 97 164/70 07/16/21 04:00 37.1 07/16/21 04:00 109 26 142/66 (89) 100 Mechanical Ventilator 50.00 07/16/21 04:00 96 Mechanical Ventilator 50 07/16/21 03:15 111 22 141/71 (92) 98 Mechanical Ventilator 50.00 07/16/21 02:41 97 30 98 45 07/16/21 02:00 99 18 146/71 (94) 94 Mechanical Ventilator 50.00 07/16/21 01:00 Mechanical Ventilator 50.00 07/16/21 01:00 101 07/16/21 01:00 101 31 147/72 (97) 91 Mechanical Ventilator 50.00 07/16/21 00:00 92 Mechanical Ventilator 45 07/16/21 00:00 90 20 139/65 (89) 95 Mechanical Ventilator 45.00 07/15/21 23:32 36.8 07/15/21 23:00 86 18 140/64 (89) 90 Mechanical Ventilator 45.00 07/15/21 22:00 93 23 138/65 (83) 91 Mechanical Ventilator 45.00 07/15/21 21:32 79 29 98 45 07/15/21 21:00 65 21 144/69 (100) 98 Mechanical Ventilator 45.00 07/15/21 20:00 66 19 149/69 (102) 96 Mechanical Ventilator 45.00 07/15/21 20:00 36.4 07/15/21 20:00 92 Mechanical Ventilator 45 07/15/21 19:00 64 22 98 45 07/15/21 19:00 66 07/15/21 19:00 66 19 147/67 (95) 98 Mechanical Ventilator 45.00 07/15/21 18:24 67 144/66 07/15/21 18:23 67 141/66 07/15/21 18:00 70 18 141/70 (93) 95 Mechanical Ventilator 45.00 07/15/21 17:00 75 23 157/73 (101) 93 Mechanical Ventilator 45.00 07/15/21 16:16 92 Mechanical Ventilator 45 07/15/21 16:00 66 20 144/65 (91) 94 Mechanical Ventilator 45.00 07/15/21 16:00 35.6 07/15/21 15:14 Mechanical Ventilator 45.00 07/15/21 15:06 66 22 96 45 07/15/21 15:00 66 17 141/64 (89) 97 Mechanical Ventilator 55.00 07/15/21 14:00 68 20 146/66 (92) 98 Mechanical Ventilator 55.00 07/15/21 13:00 63 20 146/67 (93) 97 Mechanical Ventilator 55.00 07/15/21 12:23 63 07/15/21 12:15 98 Mechanical Ventilator 55 07/15/21 12:00 64 20 149/67 (94) 96 Mechanical Ventilator 55.00 07/15/21 11:05 60 22 98 55 07/15/21 11:00 61 24 151/66 (94) 98 Mechanical Ventilator 55.00 07/15/21 10:29 61 24 151/70 07/15/21 10:00 62 24 146/67 (93) 98 Mechanical Ventilator 55.00 07/15/21 09:00 35.9 07/15/21 09:00 70 23 130/64 (86) 94 Mechanical Ventilator 55.00 07/15/21 08:45 95 Mechanical Ventilator 55 07/15/21 08:00 60 21 139/69 (92) 96 Mechanical Ventilator 55.00 07/15/21 07:00 56 25 165/80 (108) 97 Mechanical Ventilator 55.00 07/15/21 06:48 86 55 07/15/21 06:48 Mechanical Ventilator 55.00 I & O 07/16/21 07:00 Intake Total 1390 ml Output Total 1030 ml Balance 360 ml Capillary Refill : Less Than 3 Seconds General Appearance: No Apparent Distress Respiratory: Decreased Breath Sounds (In bases) Cardiovascular: Regular Rate, Rhythm Results Lab Laboratory Tests 07/15/21 10:27: Glucometer 128H 07/15/21 17:52: Glucometer 142H 07/15/21 23:30: Glucometer 116H 07/16/21 02:55: White Blood Count 12.7H, Red Blood Count 3.49L, Hemoglobin 9.6L, Hematocrit 30L, Mean Corpuscular Volume 87, Mean Corpuscular Hemoglobin 28, Mean Corpuscular Hemoglobin Concent 32, Red Cell Distribution Width 15.6H, Platelet Count 260, Mean Platelet Volume 10.8, Immature Granulocyte % (Auto) 3, Neutrophils (%) (Auto) 88H, Lymphocytes (%) (Auto) 5L, Monocytes (%) (Auto) 4, Eosinophils (%) (Auto) 0, Basophils (%) (Auto) 0, Neutrophils # (Auto) 11.2H, Lymphocytes # (Auto) 0.7L, Monocytes # (Auto) 0.5, Eosinophils # (Auto) 0.0, Basophils # (Auto) 0.0, Immature Granulocyte # (Auto) 0.4H, Blood Gas Puncture Site RT RADIA L, Blood Gas Patient Temperature 37.1, Arterial Blood pH 7.47H, Arterial Blood Partial Pressure CO2 35, Arterial Blood Partial Pressure O2 73L, Arterial Blood HCO3 25, Arterial Blood Total CO2 26.2, Arterial Blood Oxygen Saturation 95, Arterial Blood Base Excess 1.8, Cuong Test YES-POS, Blood Gas Ventilator Setting YES, Blood Gas Inspired Oxygen 50%, Sodium Level 138, Potassium Level 3.9, Chloride Level 104, Carbon Dioxide Level 22, Anion Gap 12, Blood Urea Nitrogen 26H, Creatinine 0.86, Estimat Glomerular Filtration Rate 86, BUN/Creatinine Ratio 30, Glucose Level 106H, Calcium Level 7.2L, Phosphorus Level 0.7*L, Magnesium Level 2.3 Microbiology 07/11/21 Gram Stain, Resulted Pending 07/11/21 Sputum Culture - Preliminary, Resulted Usual upper respiratory fareed 07/10/21 Blood Culture - Final, Complete No growth 07/10/21 Urine Culture - Final, Complete NO GROWTH Assessment/Plan Assessment/Plan Assess & Plan/Chief Complaint 1. Bilateral pneumonia -Patient to be initiated on cefepime as well as vancomycin. 07/11 -Day #2 of cefepime and vancomycin -He is currently on Vapotherm as he was unable to maintain saturations on nasal cannula oxygen. -Day #5 of cefepime and vancomycin -eICU and pulmonary following 07/15 -He remains intubated and FiO2 at 35 -CXR noted 07/16 -eICU and pulmonary monitoring. -IV Decadron continues 2. Coronavirus or COVID-19 infection -Respiratory care to keep his oxygen level in the mid 90 percentile 3. Hyponatremia -Monitor electrolytes 07/16 -Resolved 4. Nutritional status -Currently off IV fluids. -Consultation with dietary for tube feedings 07/15 -Tube feedings initiated -Abdomen a little firm but not distended, will continue to monitor 5. Hypophosphatemia -Replaced early a.m. Clinical Quality Measures Admission Status Admission Dx 1. Bilateral pneumonia 2. Coronavirus or COVID-19 infection 3. Dehydration 4. Hyponatremia THADDEUS RAMAN MD Jul 16, 2021 06:50
--- NOTE | 2021-07-16 06:53 | Occ Therapy Progress Note ---
Therapy Progress Note Pt is currently intubated. OT will continue to monitor pt status and initiate treatment when pt is medically stable and able to actively participate in skilled therapy. UMA CAST Jul 16, 2021 06:53
--- NOTE | 2021-07-16 07:00 | Diagnostic Imaging Report ---
Indication: COVID pneumonia Portable chest shows stable heart size and vascularity compared to the 07/14/21 study. There are persistent bilateral infiltrates. There has been slight improved aeration of the lung bases. There is no effusion or pneumothorax. The ET tube, OG tube and PICC line remain in place. IMPRESSION: Slightly improving bilateral infiltrates. Report was faxed to [facility] Infection Control by bharat at 7:00am. Dictated by: Dictated on workstation # [id number]
[2021-07-16] MEDS: ASPIRIN E.C. 81 MG (ECOTRIN) TAB PO SCH (08:03)
[2021-07-16] MEDS: PANTOPRAZOLE 40 MG (PROTONIX) VIAL IV SCH (08:04)
--- NOTE | 2021-07-16 09:45 | Tele-ICU Progress Note ---
Subjective Date Seen by a Provider: Jul 16, 2021 Time Seen by a Provider: 08:30 Subjective/Events-last exam This virtual visit was conducted using real time audio/video. Thank you for asking us to see this patient for respiratory insufficiency and distress. HPC: Recent events: increased residuals. recommend Reglan 10 mg IV PRN q 6 h. PE: VSS. O2 sat 94% on 40%/+8. HEENT: No obvious masses, adenopathy or JVD. Chest: clear to auscultation. CV: RRR S1 S2 No murmur or added sounds. Abd: Non-tender. Bowel sounds Y. : Unremarkable. Ramirez Y. 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 No obvious focal findings. Extremities: No edema. Capillary refill < 3 seconds. Skin: unremarkable. Results: Elevated WCC 12.7. Decreased Phos 0.7, replacing Hb 9.6. A/P: Respiratory insufficiency/distress: Cont vent., alb., Dex., Available chart/ vitals / labs /images reviewed. Video assessment done using teleICU camera, rest of exam as per RN. Monitor for increasing oxygenation needs. Critical Care: critically ill patient. Cont. insulin, Lovenox. replace Phos. Discussed with RN Marycarmen. Asked RN to reach out to eICU if any questions or concerns later. Time spent with patient/coordination of care with other health professionals (mins): 23 Review of Systems General: Other Sepsis Event Evaluation Height, Weight, BMI Height: 5'6.00" Weight: 165lbs. 0.0oz. [id number]; 26.89 BMI Method:Stated Exam Exam Patient acknowledged, consented, and participated in this virtual visit which was conducted using real time audio/video Vital Signs Date Time Temp Pulse Resp B/P (MAP) Pulse Ox O2 Delivery O2 Flow Rate FiO2 07/16/21 08:00 95 Mechanical Ventilator 40 07/16/21 07:44 37.6 07/16/21 07:33 101 31 98 40 07/16/21 06:00 105 22 131/60 (83) 97 Mechanical Ventilator 40.00 07/16/21 05:43 Mechanical Ventilator 40.00 07/16/21 05:00 110 23 122/62 (83) 99 Mechanical Ventilator 45.00 07/16/21 05:00 95 30 96 07/16/21 04:53 Mechanical Ventilator 45.00 07/16/21 04:45 97 164/70 07/16/21 04:00 37.1 07/16/21 04:00 109 26 142/66 (89) 100 Mechanical Ventilator 50.00 07/16/21 04:00 96 Mechanical Ventilator 50 07/16/21 03:15 111 22 141/71 (92) 98 Mechanical Ventilator 50.00 07/16/21 02:41 97 30 98 45 07/16/21 02:00 99 18 146/71 (94) 94 Mechanical Ventilator 50.00 07/16/21 01:00 Mechanical Ventilator 50.00 07/16/21 01:00 101 07/16/21 01:00 101 31 147/72 (97) 91 Mechanical Ventilator 50.00 07/16/21 00:00 92 Mechanical Ventilator 45 07/16/21 00:00 90 20 139/65 (89) 95 Mechanical Ventilator 45.00 07/15/21 23:32 36.8 07/15/21 23:00 86 18 140/64 (89) 90 Mechanical Ventilator 45.00 07/15/21 22:00 93 23 138/65 (83) 91 Mechanical Ventilator 45.00 07/15/21 21:32 79 29 98 45 07/15/21 21:00 65 21 144/69 (100) 98 Mechanical Ventilator 45.00 07/15/21 20:00 66 19 149/69 (102) 96 Mechanical Ventilator 45.00 07/15/21 20:00 36.4 07/15/21 20:00 92 Mechanical Ventilator 45 07/15/21 19:00 64 22 98 45 07/15/21 19:00 66 07/15/21 19:00 66 19 147/67 (95) 98 Mechanical Ventilator 45.00 07/15/21 18:24 67 144/66 07/15/21 18:23 67 141/66 07/15/21 18:00 70 18 141/70 (93) 95 Mechanical Ventilator 45.00 07/15/21 17:00 75 23 157/73 (101) 93 Mechanical Ventilator 45.00 07/15/21 16:16 92 Mechanical Ventilator 45 07/15/21 16:00 66 20 144/65 (91) 94 Mechanical Ventilator 45.00 07/15/21 16:00 35.6 07/15/21 15:14 Mechanical Ventilator 45.00 07/15/21 15:06 66 22 96 45 07/15/21 15:00 66 17 141/64 (89) 97 Mechanical Ventilator 55.00 07/15/21 14:00 68 20 146/66 (92) 98 Mechanical Ventilator 55.00 07/15/21 13:00 63 20 146/67 (93) 97 Mechanical Ventilator 55.00 07/15/21 12:23 63 07/15/21 12:15 98 Mechanical Ventilator 55 07/15/21 12:00 64 20 149/67 (94) 96 Mechanical Ventilator 55.00 07/15/21 11:05 60 22 98 55 07/15/21 11:00 61 24 151/66 (94) 98 Mechanical Ventilator 55.00 07/15/21 10:29 61 24 151/70 07/15/21 10:00 62 24 146/67 (93) 98 Mechanical Ventilator 55.00 I & O 07/16/21 07:00 Intake Total 1390 ml Output Total 1030 ml Balance 360 ml Height & Weight Height: 5'6.00" Weight: 165lbs. 0.0oz. 74.222242lk; 26.89 BMI Method:Stated General Appearance: No Apparent Distress HEENT: PERRL/EOMI, Normal ENT Inspection Neck: Supple Respiratory: Decreased Breath Sounds (In bases) Cardiovascular: Regular Rate, Rhythm Capillary Refill: Less Than 3 Seconds Peripheral Pulses: 1+ Dorsalis Pedis (R), 1+ Left Dors-Pedis (L) Gastrointestinal: No distended; other (firm ) Extremity: Normal Capillary Refill, Pedal Edema Neurologic/Psychiatric: No Alert Skin: Cool Results Lab Laboratory Tests 07/15/21 03:40 07/16/21 02:55 Assessment/Plan Assessment/Plan See free text Critical Care: Ventilator Management Time spent on discussion(mins): 0 ARACELIS CAIN MD Jul 16, 2021 09:45
[2021-07-16] MEDS: ENOXAPARIN 80 MG/0.8 ML (LOVENOX) SYR SC SCH ×2 (09:50→20:19)
[2021-07-16] MEDS: MIDAZOLAM DRIP PRE-MIX 100 ML IV SCH (09:50)
--- NOTE | 2021-07-16 10:21 | Physical Therapy Progress Note ---
Therapy Progress Note Patient currently sedated and intubated. PT will continue to follow patient status and initiate treatment when patient is medically stable and able to actively participate with skilled therapy. PHYLLIS GARCIA PT Jul 16, 2021 10:20
--- NOTE | 2021-07-16 10:36 | Cardiology Progress Note ---
Subjective Date Seen by Provider: Jul 16, 2021 Time Seen by Provider: 10:36 Subjective/Events-last exam Patient is sedated and intubated Review of Systems General: Other (Unable to provide review of system) Objective-Cardiology Exam Last Set of Vital Signs Vital Signs 07/16/21 07/16/21 07/16/21 07/16/21 06:00 07:44 08:00 09:50 Temp 37.6 Pulse 88 Resp 20 B/P (MAP) 112/53 Pulse Ox 95 O2 Delivery Mechanical Ventilator O2 Flow Rate 40.00 FiO2 40 I&O Intake and Output 07/16/21 00:00 Intake Total 1270 ml Output Total 1050 ml Balance 220 ml Intake Oral 0 ml IV Total 350 ml Tube Feeding 420 ml Other 500 ml Output Urine Total 1050 ml General: Other (Sedated and intubated) HEENT: Atraumatic Heart: Regular Rate Extremities: No Clubbing Skin: No Rashes Neuro: Other (Sedated and intubated) Psych/Mental Status: Other (Sedated and intubated) Results Lab Laboratory Tests 07/16/21 02:55 A/P-Cardiology Admission Diagnosis Acute respiratory failure Pneumonia COVID-19 Non-ST elevation myocardial infarction Assessment/Plan Acute respiratory failure secondary to COVID-19 pneumonia, ventilator dependent, managed by primary care team Non-ST elevation myocardial infarction, probably type II myocardial infarction secondary to severe hypoxemia. EKG reviewed did not show any acute ST elevation, patient has left anterior fascicular block. Has significant elevation in troponin. Underlying coronary artery disease cannot be entirely excluded. Maintained on Lovenox and aspirin. Continue to monitor Hypertension, has been on bisoprolol, lisinopril and hydrochlorothiazide as an outpatient. Continue to monitor blood pressure Electrolyte imbalance with hyponatremia, hypokalemia, better at this time. Continue to monitor Anemia. Continue to monitor RAMSEY MACKENZIE MD Jul 16, 2021 10:36
[2021-07-17] VITALS (29 sets, daily range): BP systolic 111–140; BP diastolic 54–73
[2021-07-17] MEDS: fentaNYL DRIP PRE-MIX 250 ML IV SCH ×6 (01:30→23:24)
[2021-07-17] MEDS: MIDAZOLAM DRIP PRE-MIX 100 ML IV SCH ×2 (01:33→17:44)
[2021-07-17] MEDS: RT-ALBUTEROL HFA 8.5 GM INHALER IH SCH ×6 (02:36→21:09)
[2021-07-17 04:30] LABS: ABG BASE EXCESS 2.3 MMOL/L (-2.5-2.5); ABG OXYGEN SATURATION 83 % (94-100); ABG PCO2 37 MMHG (35-45); ABG PH 7.46 (7.37-7.43); ABG PO2 55 MMHG (79-93); ABG TCO2 26.8 MMOL/L (21.0-31.0)
[2021-07-17 04:36] LABS: ALLENS TEST POSITIVE; INSPIRED O2 35; PATIENT TEMP 37.8; VENTILATOR YES
[2021-07-17 04:42] LABS: BASOPHILS % (AUTO) 0 % (0-10); EOSINOPHILS % (AUTO) 0 % (0-10); HEMATOCRIT 28 % (40-54); HEMOGLOBIN 8.8 g/dL (13.3-17.7); LYMPHOCYTES # (AUTO) 0.5 10^3/uL (1.0-4.0); LYMPHOCYTES % (AUTO) 4 % (12-44); MEAN CORPUSCULAR HEMOGLOBIN 27 pg (25-34); MEAN CORPUSCULAR HGB CONC 31 g/dL (32-36); MEAN CORPUSCULAR VOLUME 88 fL (80-99); MEAN PLATELET VOLUME 11.1 fL (9.0-12.2); MONOCYTES # (AUTO) 0.2 10^3/uL (0.0-1.0); MONOCYTES % (AUTO) 1 % (0-12); NEUTROPHILS # (AUTO) 10.3 10^3/uL (1.8-7.8); NEUTROPHILS % (AUTO) 91 % (42-75); PLATELET COUNT 269 10^3/uL (130-400); WHITE BLOOD COUNT 11.3 10^3/uL (4.3-11.0)
[2021-07-17 04:58] LABS: CALCIUM 7.3 MG/DL (8.5-10.1); CREATININE SERUM 0.84 MG/DL (0.60-1.30); MAGNESIUM 2.5 MG/DL (1.6-2.4); POTASSIUM 4.1 MMOL/L (3.6-5.0)
[2021-07-17] MEDS: POTASSIUM CL 10MEQ/50ML IVPB 50 ML IV SCH (05:01)
[2021-07-17] MEDS: KCL 20 MEQ TAB (K-DUR) PO SCH (05:01)
[2021-07-17] MEDS: inSUlin ASPART (NovoLOG) 1 UNIT/0.01 ML (CHARGE PER UNIT) SC SCH ×2 (05:01→10:26)
[2021-07-17] MEDS: MAGNESIUM 1 GM/100 ML IVPB 100 ML IV SCH (05:01)
[2021-07-17] MEDS: ACETAMINOPHEN 325 MG TABLET PO PRN (05:24)
--- NOTE | 2021-07-17 06:46 | Progress Note ---
Subjective Date Seen by a Provider: Jul 17, 2021 Time Seen by a Provider: 06:30 Subjective/Events-last exam Patient continues to be mechanically ventilated. His oxygenation is at 40%. Earlier this morning 35%. His urine output appears to be adequate. Objective Exam Vital Signs Date Time Temp Pulse Resp B/P (MAP) Pulse Ox O2 Delivery O2 Flow Rate FiO2 07/17/21 06:00 95 27 129/62 (84) 90 Mechanical Ventilator 35.00 07/17/21 05:30 Mechanical Ventilator 40.00 07/17/21 05:24 38.2 07/17/21 05:00 100 20 133/69 (90) 93 Mechanical Ventilator 35.00 07/17/21 05:00 101 35 89 07/17/21 04:00 92 Mechanical Ventilator 35 07/17/21 04:00 93 18 140/69 (92) 94 Mechanical Ventilator 35.00 07/17/21 04:00 38.0 07/17/21 03:00 90 27 131/67 (88) 95 Mechanical Ventilator 35.00 07/17/21 02:36 88 24 98 35 07/17/21 02:00 80 20 129/65 (86) 97 Mechanical Ventilator 35.00 07/17/21 01:33 77 20 129/65 07/17/21 01:00 80 07/17/21 01:00 80 17 129/60 (83) 98 Mechanical Ventilator 35.00 07/17/21 00:00 92 Mechanical Ventilator 35 07/17/21 00:00 77 20 129/65 (86) 99 Mechanical Ventilator 35.00 07/16/21 23:25 80 127/61 07/16/21 23:00 76 20 126/61 (82) 96 Mechanical Ventilator 35.00 07/16/21 22:58 Mechanical Ventilator 35.00 07/16/21 22:37 80 23 96 40 07/16/21 22:00 85 22 121/60 (80) 94 Mechanical Ventilator 40.00 07/16/21 21:00 82 26 125/62 (83) 95 Mechanical Ventilator 40.00 07/16/21 20:15 36.4 07/16/21 20:00 92 Mechanical Ventilator 40 07/16/21 20:00 75 22 126/60 (82) 95 Mechanical Ventilator 40.00 07/16/21 19:00 80 07/16/21 19:00 80 20 124/58 (80) 92 Mechanical Ventilator 40.00 07/16/21 18:40 80 27 92 40 07/16/21 18:00 82 24 125/58 (80) 97 Mechanical Ventilator 40.00 07/16/21 17:00 77 22 121/58 (79) 90 Mechanical Ventilator 40.00 07/16/21 16:23 37.0 07/16/21 16:22 91 Mechanical Ventilator 45 07/16/21 16:00 80 22 120/59 (79) 90 Mechanical Ventilator 40.00 07/16/21 15:04 77 27 97 40 07/16/21 15:00 75 22 132/66 (88) 90 Mechanical Ventilator 40.00 07/16/21 14:09 78 123/61 07/16/21 14:00 80 22 123/61 (81) 91 Mechanical Ventilator 40.00 07/16/21 13:00 81 22 128/61 (83) 90 Mechanical Ventilator 40.00 07/16/21 12:26 88 07/16/21 12:15 93 Mechanical Ventilator 40 07/16/21 12:08 38.3 07/16/21 12:00 90 26 125/63 (83) 91 Mechanical Ventilator 40.00 07/16/21 11:00 89 27 128/65 (86) 93 Mechanical Ventilator 40.00 07/16/21 10:56 85 26 94 40 07/16/21 10:00 86 28 130/57 (81) 99 Mechanical Ventilator 40.00 07/16/21 09:50 88 20 112/53 07/16/21 09:00 92 28 127/56 (79) 96 Mechanical Ventilator 40.00 07/16/21 08:00 97 31 119/59 (79) 96 Mechanical Ventilator 40.00 07/16/21 08:00 95 Mechanical Ventilator 40 07/16/21 07:44 37.6 07/16/21 07:33 101 31 98 40 07/16/21 07:00 98 23 128/61 (83) 98 Mechanical Ventilator 40.00 07/16/21 06:45 99 I & O 07/17/21 07:00 Intake Total 2270 ml Output Total 1175 ml Balance 1095 ml Capillary Refill : Less Than 3 Seconds General Appearance: No Apparent Distress Respiratory: Lungs Clear (In apical region), No Accessory Muscle Use, Decreased Breath Sounds (In the bases) Cardiovascular: Regular Rate, Rhythm Gastrointestinal: other (Firm with quiet bowel sounds) Results Lab Laboratory Tests 07/16/21 11:30: Glucometer 139H 07/16/21 17:17: Glucometer 139H 07/16/21 23:24: Glucometer 131H 07/17/21 04:15: White Blood Count 11.3H, Red Blood Count 3.23L, Hemoglobin 8.8L, Hematocrit 28L, Mean Corpuscular Volume 88, Mean Corpuscular Hemoglobin 27, Mean Corpuscular Hemoglobin Concent 31L, Red Cell Distribution Width 16.0H, Platelet Count 269, Mean Platelet Volume 11.1, Immature Granulocyte % (Auto) 3, Neutrophils (%) (Auto) 91H, Lymphocytes (%) (Auto) 4L, Monocytes (%) (Auto) 1, Eosinophils (%) (Auto) 0, Basophils (%) (Auto) 0, Neutrophils # (Auto) 10.3H, Lymphocytes # (Auto) 0.5L, Monocytes # (Auto) 0.2, Eosinophils # (Auto) 0.0, Basophils # (Auto) 0.0, Immature Granulocyte # (Auto) 0.3H, Blood Gas Puncture Site RIGHT RADIAL, Blood Gas Patient Temperature 37.8, Arterial Blood pH 7.46H, Arterial Blood Partial Pressure CO2 37, Arterial Blood Partial Pressure O2 55L, Arterial Blood HCO3 26, Arterial Blood Total CO2 26.8, Arterial Blood Oxygen Saturation 83L, Arterial Blood Base Excess 2.3, Cuong Test POSITIVE, Blood Gas Ventilator Setting YES, Blood Gas Inspired Oxygen 35, Sodium Level 143, Potassium Level 4.1, Chloride Level 109H, Carbon Dioxide Level 22, Anion Gap 12, Blood Urea Nitrogen 29H, Creatinine 0.84, Estimat Glomerular Filtration Rate 88, BUN/Creatinine Ratio 35, Glucose Level 109H, Calcium Level 7.3L, Magnesium Level 2.5H Microbiology 07/11/21 Gram Stain - Final, Complete 07/11/21 Sputum Culture - Final, Complete Usual upper respiratory fareed 07/10/21 Blood Culture - Final, Complete No growth 07/10/21 Urine Culture - Final, Complete NO GROWTH Assessment/Plan Assessment/Plan Assess & Plan/Chief Complaint 1. Bilateral pneumonia -Patient to be initiated on cefepime as well as vancomycin. 07/11 -Day #2 of cefepime and vancomycin -He is currently on Vapotherm as he was unable to maintain saturations on nasal cannula oxygen. -Day #5 of cefepime and vancomycin -eICU and pulmonary following 07/15 -He remains intubated and FiO2 at 35 -CXR noted 07/16 -eICU and pulmonary monitoring. -IV Decadron continues 07/17 -Low-grade fever last night. Tylenol given and will continue to monitor. No cultures obtained -Chest x-ray from July 16, 2021 revealed slightly improved bilateral infiltrates 2. Coronavirus or COVID-19 infection -Respiratory care to keep his oxygen level in the mid 90 percentile 3. Hyponatremia -Monitor electrolytes 07/16 -Resolved 4. Nutritional status -Currently off IV fluids. -Consultation with dietary for tube feedings 07/15 -Tube feedings initiated -Abdomen a little firm but not distended, will continue to monitor 07/17 -Tube feedings have been on hold for now 5. Hypophosphatemia -Replaced early a.m. 6. Anemia -Most likely due to chronic illness as opposed to acute bleed Clinical Quality Measures Admission Status Admission Dx 1. Bilateral pneumonia 2. Coronavirus or COVID-19 infection 3. Dehydration 4. Hyponatremia THADDEUS RAMAN MD Jul 17, 2021 06:45
--- NOTE | 2021-07-17 06:54 | Occ Therapy Progress Note ---
Therapy Progress Note Pt is currently intubated. OT will continue to monitor pt status and initiate treatment when pt is medically stable and able to actively participate in skilled therapy. UMA CAST Jul 17, 2021 06:54
--- NOTE | 2021-07-17 07:29 | Physical Therapy Progress Note ---
Therapy Progress Note Patient currently sedated and intubated. PT will continue to follow patient status and initiate treatment when patient is medically stable and able to actively participate with skilled therapy. JUDITH GE PT Jul 17, 2021 07:29
[2021-07-17] MEDS: ASPIRIN E.C. 81 MG (ECOTRIN) TAB PO SCH (07:55)
[2021-07-17] MEDS: PANTOPRAZOLE 40 MG (PROTONIX) VIAL IV SCH (07:55)
--- NOTE | 2021-07-17 08:06 | Cardiology Progress Note ---
Subjective Date Seen by Provider: Jul 17, 2021 Time Seen by Provider: 08:06 Subjective/Events-last exam Patient is sedated and intubated Review of Systems General: Other (Unable to provide review of system) Objective-Cardiology Exam Last Set of Vital Signs Vital Signs 07/17/21 07/17/21 07/17/21 07/17/21 06:00 06:44 06:52 08:00 Temp 38.4 Pulse 104 Resp 29 B/P (MAP) 129/62 (84) Pulse Ox 93 O2 Delivery Mechanical Ventilator O2 Flow Rate 30.00 FiO2 40 I&O Intake and Output 07/17/21 00:00 Intake Total 2270 ml Output Total 1105 ml Balance 1165 ml IV Total 950 ml Tube Feeding 720 ml Other 600 ml Output Urine Total 1105 ml General: Other (Sedated and intubated) HEENT: Atraumatic Heart: Regular Rate Extremities: No Clubbing Skin: No Rashes Neuro: Other (Sedated and intubated) Psych/Mental Status: Other (Sedated and intubated) Results Lab Laboratory Tests 07/17/21 04:15 A/P-Cardiology Admission Diagnosis Acute respiratory failure Pneumonia COVID-19 Non-ST elevation myocardial infarction Assessment/Plan Acute respiratory failure secondary to COVID-19 pneumonia, ventilator dependent, managed by primary care team Non-ST elevation myocardial infarction, probably type II myocardial infarction secondary to severe hypoxemia. EKG reviewed did not show any acute ST elevation, patient has left anterior fascicular block. Has significant elevation in troponin. Underlying coronary artery disease cannot be entirely excluded. Maintained on Lovenox and aspirin. Continue to monitor Hypertension, has been on bisoprolol, lisinopril and hydrochlorothiazide as an outpatient. Continue to monitor blood pressure Electrolyte imbalance with hyponatremia, hypokalemia, better at this time. Continue to monitor Anemia. Continue to monitor RAMSEY MACKENZIE MD Jul 17, 2021 08:06
[2021-07-17] MEDS: PROPOFOL DRIP (ICU) 100 ML IV SCH (10:25)
[2021-07-17] MEDS: ENOXAPARIN 80 MG/0.8 ML (LOVENOX) SYR SC SCH ×2 (10:26→23:24)
[2021-07-17] MEDS ORDERED: FUROSEMIDE 40 MG/4 ML INJ (LASIX) IVP ONE (14:00)
--- NOTE | 2021-07-17 14:08 | Tele-ICU Progress Note ---
Subjective Date Seen by a Provider: Jul 17, 2021 Time Seen by a Provider: 14:07 Sepsis Event Evaluation Height, Weight, BMI Height: 5'6.00" Weight: 165lbs. 0.0oz. 74.389061oz; 26.89 BMI Method:Stated Exam Exam Patient acknowledged, consented, and participated in this virtual visit which was conducted using real time audio/video Vital Signs Date Time Temp Pulse Resp B/P (MAP) Pulse Ox O2 Delivery O2 Flow Rate FiO2 07/17/21 12:00 95 28 111/67 (82) 90 Mechanical Ventilator 30.00 07/17/21 12:00 90 Mechanical Ventilator 60 07/17/21 11:00 94 24 117/65 (82) 91 Mechanical Ventilator 30.00 07/17/21 10:25 96 119/65 07/17/21 10:00 103 22 120/68 (85) 95 Mechanical Ventilator 30.00 07/17/21 09:00 101 26 115/61 (79) 89 Mechanical Ventilator 30.00 07/17/21 08:15 90 Mechanical Ventilator 40 07/17/21 08:00 38.4 07/17/21 08:00 93 30 118/61 (80) 97 Mechanical Ventilator 30.00 07/17/21 07:00 105 22 124/62 (82) 96 Mechanical Ventilator 30.00 07/17/21 07:00 102 07/17/21 06:52 Mechanical Ventilator 30.00 07/17/21 06:44 104 29 93 40 07/17/21 06:00 95 27 129/62 (84) 90 Mechanical Ventilator 35.00 07/17/21 05:30 Mechanical Ventilator 40.00 07/17/21 05:24 38.2 07/17/21 05:00 100 20 133/69 (90) 93 Mechanical Ventilator 35.00 07/17/21 05:00 101 35 89 07/17/21 04:00 92 Mechanical Ventilator 35 07/17/21 04:00 93 18 140/69 (92) 94 Mechanical Ventilator 35.00 07/17/21 04:00 38.0 07/17/21 03:00 90 27 131/67 (88) 95 Mechanical Ventilator 35.00 07/17/21 02:36 88 24 98 35 07/17/21 02:00 80 20 129/65 (86) 97 Mechanical Ventilator 35.00 07/17/21 01:33 77 20 129/65 07/17/21 01:00 80 07/17/21 01:00 80 17 129/60 (83) 98 Mechanical Ventilator 35.00 07/17/21 00:00 92 Mechanical Ventilator 35 07/17/21 00:00 77 20 129/65 (86) 99 Mechanical Ventilator 35.00 07/16/21 23:25 80 127/61 07/16/21 23:00 76 20 126/61 (82) 96 Mechanical Ventilator 35.00 07/16/21 22:58 Mechanical Ventilator 35.00 07/16/21 22:37 80 23 96 40 07/16/21 22:00 85 22 121/60 (80) 94 Mechanical Ventilator 40.00 07/16/21 21:00 82 26 125/62 (83) 95 Mechanical Ventilator 40.00 07/16/21 20:15 36.4 07/16/21 20:00 92 Mechanical Ventilator 40 07/16/21 20:00 75 22 126/60 (82) 95 Mechanical Ventilator 40.00 07/16/21 19:00 80 07/16/21 19:00 80 20 124/58 (80) 92 Mechanical Ventilator 40.00 07/16/21 18:40 80 27 92 40 07/16/21 18:00 82 24 125/58 (80) 97 Mechanical Ventilator 40.00 07/16/21 17:00 77 22 121/58 (79) 90 Mechanical Ventilator 40.00 07/16/21 16:23 37.0 07/16/21 16:22 91 Mechanical Ventilator 45 07/16/21 16:00 80 22 120/59 (79) 90 Mechanical Ventilator 40.00 07/16/21 15:04 77 27 97 40 07/16/21 15:00 75 22 132/66 (88) 90 Mechanical Ventilator 40.00 07/16/21 14:09 78 123/61 I & O 07/17/21 07:00 Intake Total 2270 ml Output Total 1175 ml Balance 1095 ml Height & Weight Height: 5'6.00" Weight: 165lbs. 0.0oz. 74.879184kd; 26.89 BMI Method:Stated General Appearance: No Apparent Distress HEENT: PERRL/EOMI, Normal ENT Inspection Neck: Supple Respiratory: Lungs Clear (In apical region), No Accessory Muscle Use, Decreased Breath Sounds (In the bases) Cardiovascular: Regular Rate, Rhythm Capillary Refill: Less Than 3 Seconds Peripheral Pulses: 1+ Dorsalis Pedis (R), 1+ Left Dors-Pedis (L) Gastrointestinal: other (Firm with quiet bowel sounds) Extremity: Normal Capillary Refill, Pedal Edema Neurologic/Psychiatric: No Alert Skin: Cool Results Lab Laboratory Tests 07/16/21 02:55 07/17/21 04:15 Assessment/Plan Assessment/Plan (Tele-ICU Physician , Progress Note ) Available chart/ vitals / labs / Images reviewed Video assessment done using teleICU camera, rest of exam as per RN Discussed with RN , EXAM PER RN - no edema Events overnight : FEBRILE I/O = pos 1100 Drips: Pressors: , hemodynamically stable Sedation gtt: ( RASS -3) prop 20 - tryin gto wean . fentanyl 75 , versed 4 not follow commands 07/14 VENT SETTINGS. AC 24 390 55% +14 ABG reviewed Not candidate for SBT today Consultants: cards Hospital course: 07/10 - COVID PNA 07/11 - INTUBATED 07/14=- AC 24 tv 390 + 10 60 % 07/15 - 55% +14 07/17 - + 8 80% - 50% fluctiate Consultants: A/P AHRF / ARDS due to severe COVID19 ( no PE on CT 07/10 -intubated 07/11 - AC 20 tv 390 + 8 80% PAP20 - not proning NOSA-Dfueogpmmjt-2/COVID-19 PNA ( Not vaccinated , exposure 06/29 , COvid vaccine 07/02 , Dx 07/10 - will give 1 dose of lasix ( +1L volume balance last 24 h -Steroids IV - started 07/10 -Hypercoagulable state , DDIMER 0.75 on 07/10 -> was started on fill lovenox dose 07/11 ( no evidence of large PE on CT 07/10 ) Suspected superimposed bact PNA -empiric abx started 07/10 ( PCT 0.28 ) - cefepime as well as vancomycin. 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 Discussed with RN to reach out if any questions or concerns A total of 37 minutes of critical care time was devoted to this patient today, required to treat and/or prevent further deterioration of critical care condition ( as above ) . MARIA ESTHER DELGADO MD Jul 17, 2021 14:08
[2021-07-18] VITALS (30 sets, daily range): BP systolic 116–140; BP diastolic 58–76
[2021-07-18] MEDS: RT-ALBUTEROL HFA 8.5 GM INHALER IH SCH ×6 (01:56→22:31)
[2021-07-18 03:19] LABS: ABG BASE EXCESS 3.7 MMOL/L (-2.5-2.5); ABG OXYGEN SATURATION 87 % (94-100); ABG PCO2 43 MMHG (35-45); ABG PH 7.43 (7.37-7.43); ABG PO2 59 MMHG (79-93)
[2021-07-18 03:20] LABS: ALLENS TEST YES-POS; BASOPHILS % (AUTO) 0 % (0-10); EOSINOPHILS % (AUTO) 0 % (0-10); HEMATOCRIT 26 % (40-54); HEMOGLOBIN 8.2 g/dL (13.3-17.7); INSPIRED O2 50%; LYMPHOCYTES # (AUTO) 0.3 10^3/uL (1.0-4.0); LYMPHOCYTES % (AUTO) 3 % (12-44); MEAN CORPUSCULAR HEMOGLOBIN 28 pg (25-34); MEAN CORPUSCULAR HGB CONC 31 g/dL (32-36); MEAN CORPUSCULAR VOLUME 89 fL (80-99); MEAN PLATELET VOLUME 10.9 fL (9.0-12.2); MONOCYTES # (AUTO) 0.2 10^3/uL (0.0-1.0); MONOCYTES % (AUTO) 2 % (0-12); NEUTROPHILS # (AUTO) 10.7 10^3/uL (1.8-7.8); NEUTROPHILS % (AUTO) 93 % (42-75); PATIENT TEMP 99.1; PLATELET COUNT 227 10^3/uL (130-400); VENTILATOR YES; WHITE BLOOD COUNT 11.5 10^3/uL (4.3-11.0)
[2021-07-18 03:39] LABS: POTASSIUM 4.2 MMOL/L (3.6-5.0)
[2021-07-18 03:41] LABS: CALCIUM 7.2 MG/DL (8.5-10.1)
[2021-07-18 03:45] LABS: CREATININE SERUM 1.03 MG/DL (0.60-1.30); PHOSPHORUS 2.2 MG/DL (2.3-4.7)
[2021-07-18 03:47] LABS: MAGNESIUM 2.6 MG/DL (1.6-2.4)
[2021-07-18] MEDS: fentaNYL DRIP PRE-MIX 250 ML IV SCH ×3 (03:48→14:58)
[2021-07-18] MEDS: MIDAZOLAM DRIP PRE-MIX 100 ML IV SCH (03:49)
[2021-07-18] MEDS: MAGNESIUM 1 GM/100 ML IVPB 100 ML IV SCH (05:59)
[2021-07-18] MEDS: POTASSIUM CL 10MEQ/50ML IVPB 50 ML IV SCH (05:59)
[2021-07-18] MEDS: KCL 20 MEQ TAB (K-DUR) PO SCH (05:59)
--- NOTE | 2021-07-18 06:54 | Progress Note ---
Subjective Date Seen by a Provider: Jul 18, 2021 Time Seen by a Provider: 06:30 Subjective/Events-last exam Patient remains on mechanical ventilation. There has been no major changes in his overall clinical status. He still requires 40 to 50% oxygen by mechanical ventilation. Objective Exam Vital Signs Date Time Temp Pulse Resp B/P (MAP) Pulse Ox O2 Delivery O2 Flow Rate FiO2 07/18/21 06:00 87 20 132/68 (89) 96 Mechanical Ventilator 50.00 07/18/21 06:00 95 28 87 07/18/21 05:00 89 16 126/67 (86) 94 Mechanical Ventilator 50.00 07/18/21 04:00 89 16 119/63 (81) 98 Mechanical Ventilator 50.00 07/18/21 04:00 92 Mechanical Ventilator 50 07/18/21 03:49 86 23 119/66 07/18/21 03:00 94 18 119/62 (81) 92 Mechanical Ventilator 50.00 07/18/21 02:58 37.2 07/18/21 02:00 89 20 116/60 (78) 97 Mechanical Ventilator 50.00 07/18/21 01:56 88 23 97 50 07/18/21 01:00 93 22 121/64 (83) 96 Mechanical Ventilator 50.00 07/18/21 01:00 93 07/18/21 00:00 91 Mechanical Ventilator 50 07/18/21 00:00 93 18 116/58 (77) 95 Mechanical Ventilator 50.00 07/17/21 23:27 37.3 Mechanical Ventilator 50.00 07/17/21 23:00 98 20 120/60 (80) 93 Mechanical Ventilator 45.00 07/17/21 22:00 95 22 122/58 (79) 92 Mechanical Ventilator 45.00 07/17/21 21:09 98 27 91 45 07/17/21 21:00 96 23 120/57 (78) 92 Mechanical Ventilator 45.00 07/17/21 20:12 Mechanical Ventilator 45.00 07/17/21 20:01 36.8 07/17/21 20:00 91 Mechanical Ventilator 40 07/17/21 20:00 92 23 127/61 (83) 94 Mechanical Ventilator 40.00 07/17/21 19:30 Mechanical Ventilator 40.00 07/17/21 19:06 97 40 07/17/21 19:00 Mechanical Ventilator 50.00 07/17/21 19:00 89 21 118/54 (75) 97 Mechanical Ventilator 50.00 07/17/21 19:00 89 07/17/21 18:58 89 25 97 50 07/17/21 18:00 89 20 125/60 (81) 96 Mechanical Ventilator 30.00 07/17/21 17:44 89 22 119/63 07/17/21 17:00 93 24 120/61 (80) 96 Mechanical Ventilator 30.00 07/17/21 16:00 98 19 127/66 (86) 93 Mechanical Ventilator 30.00 07/17/21 16:00 90 Mechanical Ventilator 60 07/17/21 15:51 36.8 07/17/21 15:00 96 21 136/73 (94) 93 Mechanical Ventilator 30.00 07/17/21 14:20 92 35 92 50 07/17/21 14:00 93 19 120/61 (80) 91 Mechanical Ventilator 30.00 07/17/21 13:00 95 07/17/21 13:00 99 27 122/61 (81) 88 Mechanical Ventilator 30.00 07/17/21 12:20 102 27 91 40 07/17/21 12:00 95 28 111/67 (82) 90 Mechanical Ventilator 30.00 07/17/21 12:00 90 Mechanical Ventilator 60 07/17/21 11:00 94 24 117/65 (82) 91 Mechanical Ventilator 30.00 07/17/21 10:25 96 119/65 07/17/21 10:00 103 22 120/68 (85) 95 Mechanical Ventilator 30.00 07/17/21 09:00 101 26 115/61 (79) 89 Mechanical Ventilator 30.00 07/17/21 08:15 90 Mechanical Ventilator 40 07/17/21 08:00 38.4 07/17/21 08:00 93 30 118/61 (80) 97 Mechanical Ventilator 30.00 07/17/21 07:00 105 22 124/62 (82) 96 Mechanical Ventilator 30.00 07/17/21 07:00 102 I & O 07/18/21 07:00 Intake Total 2220 ml Output Total 2650 ml Balance -430 ml Capillary Refill : Less Than 3 Seconds General Appearance: No Apparent Distress (But he is receiving Versed and fentanyl) Cardiovascular: Regular Rate, Rhythm Gastrointestinal: other (Firm) Results Lab Laboratory Tests 07/17/21 10:16: Glucometer 124H 07/17/21 12:41: Glucometer 136H 07/17/21 17:57: Glucometer 157H 07/18/21 03:10: White Blood Count 11.5H, Red Blood Count 2.96L, Hemoglobin 8.2L, Hematocrit 26L, Mean Corpuscular Volume 89, Mean Corpuscular Hemoglobin 28, Mean Corpuscular Hemoglobin Concent 31L, Red Cell Distribution Width 16.0H, Platelet Count 227, Mean Platelet Volume 10.9, Immature Granulocyte % (Auto) 2, Neutrophils (%) (A uto) 93H, Lymphocytes (%) (Auto) 3L, Monocytes (%) (Auto) 2, Eosinophils (%) (Auto) 0, Basophils (%) (Auto) 0, Neutrophils # (Auto) 10.7H, Lymphocytes # (Auto) 0.3L, Monocytes # (Auto) 0.2, Eosinophils # (Auto) 0.0, Basophils # (Auto) 0.0, Immature Granulocyte # (Auto) 0.2H, Blood Gas Puncture Site LEFT RADIAL, Blood Gas Patient Temperature 99.1, Arterial Blood pH 7.43, Arterial Blood Partial Pressure CO2 43, Arterial Blood Partial Pressure O2 59L, Arterial Blood HCO3 28H, Arterial Blood Total CO2 29.0, Arterial Blood Oxygen Saturation 87L, Arterial Blood Base Excess 3.7H, Cuong Test YES-POS, Blood Gas Ventilator Setting YES, Blood Gas Inspired Oxygen 50%, Sodium Level 142, Potassium Level 4.2, Chloride Level 106, Carbon Dioxide Level 25, Anion Gap 11, Blood Urea Nitrogen 34H, Creatinine 1.03, Estimat Glomerular Filtration Rate 69, BUN/Creatinine Ratio 33, Glucose Level 130H, Calcium Level 7.2L, Phosphorus Level 2.2L, Magnesium Level 2.6H Microbiology 07/11/21 Gram Stain - Final, Complete 07/11/21 Sputum Culture - Final, Complete Usual upper respiratory fareed 07/10/21 Blood Culture - Final, Complete No growth 07/10/21 Urine Culture - Final, Complete NO GROWTH Assessment/Plan Assessment/Plan Assess & Plan/Chief Complaint 1. Bilateral pneumonia -Patient to be initiated on cefepime as well as vancomycin. 07/11 -Day #2 of cefepime and vancomycin -He is currently on Vapotherm as he was unable to maintain saturations on nasal cannula oxygen. -Day #5 of cefepime and vancomycin -eICU and pulmonary following 07/15 -He remains intubated and FiO2 at 35 -CXR noted 07/16 -eICU and pulmonary monitoring. -IV Decadron continues 07/17 -Low-grade fever last night. Tylenol given and will continue to monitor. No cultures obtained -Chest x-ray from July 16, 2021 revealed slightly improved bilateral infiltrates 2. Coronavirus or COVID-19 infection -Respiratory care to keep his oxygen level in the mid 90 percentile 3. Hyponatremia -Monitor electrolytes 07/16 -Resolved 4. Nutritional status -Currently off IV fluids. -Consultation with dietary for tube feedings 07/15 -Tube feedings initiated -Abdomen a little firm but not distended, will continue to monitor 07/17 -Tube feedings have been on hold for now 07/18 -KUB obtained 5. Hypophosphatemia -Replaced early a.m. 6. Anemia -Most likely due to chronic illness as opposed to acute bleed Clinical Quality Measures Admission Status Admission Dx 1. Bilateral pneumonia 2. Coronavirus or COVID-19 infection 3. Dehydration 4. Hyponatremia THADDEUS RAMAN MD Jul 18, 2021 06:54
--- NOTE | 2021-07-18 06:59 | Occ Therapy Progress Note ---
Therapy Progress Note Pt is currently intubated. OT will continue to monitor pt status and initiate treatment when pt is medically stable and able to actively participate in skilled therapy. UMA CAST Jul 18, 2021 06:59
--- NOTE | 2021-07-18 07:16 | Physical Therapy Progress Note ---
Therapy Progress Note Patient currently sedated and intubated. PT will continue to follow patient status and initiate treatment when patient is medically stable and able to actively participate with skilled therapy. JUDITH GE PT Jul 18, 2021 07:16
--- NOTE | 2021-07-18 07:22 | Diagnostic Imaging Report ---
Indication: NG tube placement. Comparison: None Findings: Single view of the abdomen demonstrates NG tube well within the stomach. The bowel gas pattern is nondistended. There is no large pocket of free air. Impression: NG tube within the stomach. Dictated by: Dictated on workstation # [id number]
--- NOTE | 2021-07-18 07:33 | Diagnostic Imaging Report ---
Reason for examination: Intubation. Upright AP portable chest was obtained and compared to 07/16/2021. Right PICC line remains in place. ET tube is in good position between the clavicles and adolfo. There is an NG tube in the distal stomach. The cardiomediastinal silhouette is unchanged. Bilateral pulmonary infiltrates are persistent and not significantly changed. No large effusion or pneumothorax. Impression: 1. Support lines and tubes are in good position where visible. Persistent bilateral 5 lobe pulmonary infiltrates. Dictated by: Dictated on workstation # [id number]
[2021-07-18] MEDS: PANTOPRAZOLE 40 MG (PROTONIX) VIAL IV SCH (08:15)
[2021-07-18] MEDS: ASPIRIN E.C. 81 MG (ECOTRIN) TAB PO SCH (08:15)
[2021-07-18] MEDS: ENOXAPARIN 80 MG/0.8 ML (LOVENOX) SYR SC SCH ×2 (09:42→22:25)
--- NOTE | 2021-07-18 09:55 | Progress Note - Cardiology ---
Cardiology SOAP Progress Note Subjective: Intubated and on mech ventilation and is non-communicative Objective: I&O/Vital Signs 07/17/21 07/17/21 07/17/21 07/18/21 22:00 23:00 23:27 00:00 Temp 37.3 Pulse 95 98 93 Resp 22 18 B/P (MAP) 122/58 (79) 120/60 (80) 116/58 (77) Pulse Ox 92 93 95 O2 Delivery Mechanical Ventilator Mechanical Ventilator Mechanical Ventilator Mechanical Ventilator O2 Flow Rate 45.00 45.00 50.00 50.00 07/18/21 07/18/21 07/18/21 07/18/21 00:00 01:00 01:00 01:56 Pulse 93 93 88 Resp 23 B/P (MAP) 121/64 (83) Pulse Ox 91 96 97 O2 Delivery Mechanical Ventilator Mechanical Ventilator O2 Flow Rate 50.00 FiO2 50 50 07/18/21 07/18/21 07/18/21 07/18/21 02:00 02:58 03:00 03:49 Temp 37.2 Pulse 89 94 86 Resp 23 B/P (MAP) 116/60 (78) 119/62 (81) 119/66 Pulse Ox 97 92 O2 Delivery Mechanical Ventilator Mechanical Ventilator O2 Flow Rate 50.00 50.00 07/18/21 07/18/21 07/18/21 07/18/21 04:00 04:00 05:00 06:00 Pulse 89 89 95 Resp 16 16 28 B/P (MAP) 119/63 (81) 126/67 (86) Pulse Ox 92 98 94 87 O2 Delivery Mechanical Ventilator Mechanical Ventilator Mechanical Ventilator O2 Flow Rate 50.00 50.00 FiO2 50 07/18/21 07/18/21 07/18/21 07/18/21 06:00 07:00 07:00 07:21 Pulse 87 87 86 Resp B/P (MAP) 132/68 (89) 130/66 (84) Pulse Ox 96 100 100 O2 Delivery Mechanical Ventilator Mechanical Ventilator Mechanical Ventilator O2 Flow Rate 50.00 50.00 FiO2 50 07/18/21 07/18/21 07/18/21 07/18/21 07:37 08:00 08:32 09:00 Temp 37.1 Pulse 91 93 99 Resp 22 24 B/P (MAP) 126/61 (78) 131/65 (87) Pulse Ox 96 93 94 O2 Delivery Mechanical Ventilator Mechanical Ventilator O2 Flow Rate 50.00 50.00 FiO2 50 07/18/21 00:00 Intake Total 1360 ml Output Total 1975 ml Balance -615 ml Weight (Pounds): 165 Weight (Ounces): 0.0 Weight (Calculated Kilograms): 74.874336 Constitutional: other (intubated, on mech vent, unable to communicate) Skin: normal color, warm/dry Results/Procedures: Labs Laboratory Tests 07/17/21 10:16: Glucometer 124H 07/17/21 12:41: Glucometer 136H 07/17/21 17:57: Glucometer 157H 07/18/21 03:10: White Blood Count 11.5H, Red Blood Count 2.96L, Hemoglobin 8.2L, Hematocrit 26L, Mean Corpuscular Volume 89, Mean Corpuscular Hemoglobin 28, Mean Corpuscular Hemoglobin Concent 31L, Red Cell Distribution Width 16.0H, Platelet Count 227, Mean Platelet Volume 10.9, Immature Granulocyte % (Auto) 2, Neutrophils (%) (Auto) 93H, Lymphocytes (%) (Auto) 3L, Monocytes (%) (Auto) 2, Eosinophils (%) (Auto) 0, Basophils (%) (Auto) 0, Neutrophils # (Auto) 10.7H, Lymphocytes # (Auto) 0.3L, Monocytes # (Auto) 0.2, Eosinophils # (Auto) 0.0, Basophils # (Auto) 0.0, Immature Granulocyte # (Auto) 0.2H, Blood Gas Puncture Site LEFT RADIAL, Blood Gas Patient Temperature 99.1, Arterial Blood pH 7.43, Arterial Blood Partial Pressure CO2 43, Arterial Blood Partial Pressure O2 59L, Arterial Blood HCO3 28H, Arterial Blood Total CO2 29.0, Arterial Blood Oxygen Saturation 87L, Arterial Blood Base Excess 3.7H, Cuong Test YES-POS, Blood Gas Ventilator Setting YES, Blood Gas Inspired Oxygen 50%, Sodium Level 142, Potassium Level 4.2, Chloride Level 106, Carbon Dioxide Level 25, Anion Gap 11, Blood Urea Nitrogen 34H, Creatinine 1.03, Estimat Glomerular Filtration Rate 69, BUN/Creatinine Ratio 33, Glucose Level 130H, Calcium Level 7.2L, Phosphorus Le hillary 2.2L, Magnesium Level 2.6H Microbiology 07/11/21 Gram Stain - Final, Complete 07/11/21 Sputum Culture - Final, Complete Usual upper respiratory fareed 07/10/21 Blood Culture - Final, Complete No growth 07/10/21 Urine Culture - Final, Complete NO GROWTH Laboratory Tests 07/17/21 04:15 07/18/21 03:10 A/P: Assessment: Acute respiratory failure secondary to COVID-19 pneumonia, ventilator dependent, managed by primary care team Non-ST elevation myocardial infarction, probably type II myocardial infarction secondary to severe hypoxemia. EKG reviewed did not show any acute ST elevation, patient has left anterior fascicular block. Has significant elevation in troponin. Underlying coronary artery disease cannot be entirely excluded. Maintained on Lovenox and aspirin. Continue to monitor Hypertension, has been on bisoprolol, lisinopril and hydrochlorothiazide as an outpatient. Continue to monitor blood pressure Electrolyte imbalance with hyponatremia, hypokalemia, now resolved. Continue to monitor Anemia. Continue to monitor ANNALISA PENA MD FACP [facility] Jul 18, 2021 09:55
[2021-07-18] MEDS ORDERED: FUROSEMIDE 40 MG/4 ML INJ (LASIX) IVP ONE (12:15)
[2021-07-18] MEDS ORDERED: METOCLOPRAMIDE INJ 10 MG/2 ML (REGLAN) IVP PRN (12:15)
--- NOTE | 2021-07-18 12:27 | Tele-ICU Progress Note ---
Subjective Date Seen by a Provider: Jul 18, 2021 Time Seen by a Provider: 12:27 Sepsis Event Evaluation Height, Weight, BMI Height: 5'6.00" Weight: 165lbs. 0.0oz. 74.431188wx; 26.89 BMI Method:Stated Exam Exam Patient acknowledged, consented, and participated in this virtual visit which was conducted using real time audio/video Vital Signs Date Time Temp Pulse Resp B/P (MAP) Pulse Ox O2 Delivery O2 Flow Rate FiO2 07/18/21 12:00 91 20 136/69 (91) 94 Mechanical Ventilator 40.00 07/18/21 12:00 36.9 07/18/21 11:32 100 Mechanical Ventilator 50 07/18/21 11:00 95 26 135/68 (90) 93 Mechanical Ventilator 40.00 07/18/21 10:46 Mechanical Ventilator 40.00 07/18/21 10:42 93 22 95 45 07/18/21 10:00 96 18 129/65 (86) 95 Mechanical Ventilator 50.00 07/18/21 09:00 99 24 131/65 (87) 94 Mechanical Ventilator 50.00 07/18/21 08:32 37.1 07/18/21 08:00 93 21 126/61 (78) 93 Mechanical Ventilator 50.00 07/18/21 07:37 91 22 96 50 07/18/21 07:21 100 Mechanical Ventilator 50 07/18/21 07:00 86 21 130/66 (84) 100 Mechanical Ventilator 50.00 07/18/21 07:00 87 07/18/21 06:00 87 20 132/68 (89) 96 Mechanical Ventilator 50.00 07/18/21 06:00 95 28 87 07/18/21 05:00 89 16 126/67 (86) 94 Mechanical Ventilator 50.00 07/18/21 04:00 89 16 119/63 (81) 98 Mechanical Ventilator 50.00 07/18/21 04:00 92 Mechanical Ventilator 50 07/18/21 03:49 86 23 119/66 07/18/21 03:00 94 18 119/62 (81) 92 Mechanical Ventilator 50.00 07/18/21 02:58 37.2 07/18/21 02:00 89 20 116/60 (78) 97 Mechanical Ventilator 50.00 07/18/21 01:56 88 23 97 50 07/18/21 01:00 93 22 121/64 (83) 96 Mechanical Ventilator 50.00 07/18/21 01:00 93 07/18/21 00:00 91 Mechanical Ventilator 50 07/18/21 00:00 93 18 116/58 (77) 95 Mechanical Ventilator 50.00 07/17/21 23:27 37.3 Mechanical Ventilator 50.00 07/17/21 23:00 98 20 120/60 (80) 93 Mechanical Ventilator 45.00 07/17/21 22:00 95 22 122/58 (79) 92 Mechanical Ventilator 45.00 07/17/21 21:09 98 27 91 45 07/17/21 21:00 96 23 120/57 (78) 92 Mechanical Ventilator 45.00 07/17/21 20:12 Mechanical Ventilator 45.00 07/17/21 20:01 36.8 07/17/21 20:00 91 Mechanical Ventilator 40 07/17/21 20:00 92 23 127/61 (83) 94 Mechanical Ventilator 40.00 07/17/21 19:30 Mechanical Ventilator 40.00 07/17/21 19:06 97 40 07/17/21 19:00 Mechanical Ventilator 50.00 07/17/21 19:00 89 21 118/54 (75) 97 Mechanical Ventilator 50.00 07/17/21 19:00 89 07/17/21 18:58 89 25 97 50 07/17/21 18:00 89 20 125/60 (81) 96 Mechanical Ventilator 30.00 07/17/21 17:44 89 22 119/63 07/17/21 17:00 93 24 120/61 (80) 96 Mechanical Ventilator 30.00 07/17/21 16:00 98 19 127/66 (86) 93 Mechanical Ventilator 30.00 07/17/21 16:00 90 Mechanical Ventilator 60 07/17/21 15:51 36.8 07/17/21 15:00 96 21 136/73 (94) 93 Mechanical Ventilator 30.00 07/17/21 14:20 92 35 92 50 07/17/21 14:00 93 19 120/61 (80) 91 Mechanical Ventilator 30.00 07/17/21 13:00 95 07/17/21 13:00 99 27 122/61 (81) 88 Mechanical Ventilator 30.00 I & O 07/18/21 06:59 Intake Total 2220 ml Output Total 2650 ml Balance -430 ml Height & Weight Height: 5'6.00" Weight: 165lbs. 0.0oz. 74.471537zk; 26.89 BMI Method:Stated General Appearance: No Apparent Distress (But he is receiving Versed and fentanyl) HEENT: PERRL/EOMI, Normal ENT Inspection Neck: Supple Respiratory: Lungs Clear (In apical region), No Accessory Muscle Use, Decreased Breath Sounds (In the bases) Cardiovascular: Regular Rate, Rhythm Capillary Refill: Less Than 3 Seconds Peripheral Pulses: 1+ Dorsalis Pedis (R), 1+ Left Dors-Pedis (L) Gastrointestinal: other (Firm) Extremity: Normal Capillary Refill, Pedal Edema Neurologic/Psychiatric: No Alert Skin: Cool Results Lab Laboratory Tests 07/17/21 04:15 07/18/21 03:10 Assessment/Plan Assessment/Plan (Tele-ICU Physician , Progress Note ) Available chart/ vitals / labs / Images reviewed Video assessment done using teleICU camera, rest of exam as per RN Discussed with RN , EXAM PER RN - no edema Events overnight : FEBRILE I/O = even Drips: Pressors: , hemodynamically stable Sedation gtt: ( RASS -3) prop 20 - trying gto wean . fentanyl 150 , versed 4 propofol OFF not follow commands 07/14 VENT SETTINGS. AC 24 390 55% +14 ABG reviewed Not candidate for SBT today Consultants: [facility] Hospital course: 07/10 - COVID PNA 07/11 - INTUBATED 07/14=- AC 24 tv 390 + 10 60 % 07/15 - 55% +14 07/17 - + 8 80% - 50% fluctuate Consultants: A/P AHRF / ARDS due to severe COVID19 ( no PE on CT 07/10 -intubated 07/11 - AC 20 tv 390 + 8 45 - 60% % PAP20 - not proning - diuresis today - trying to wean off sedation UCEV-Ussxgcydocz-7/COVID-19 PNA ( Not vaccinated , exposure 06/29 , COvid vaccine 07/02 , Dx 07/10 - will give 1 dose of lasix ( +1L volume balance last 24 h -Steroids IV - started 07/10 -Hypercoagulable state , DDIMER 0.75 on 07/10 -> was started on fill lovenox dose 07/11 ( no evidence of large PE on CT 07/10 ) Suspected superimposed bact PNA -empiric abx started 07/10 ( PCT 0.28 ) - cefepime as well as vancomycin. 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 Discussed with RN to reach out if any questions or concerns A total of 37 minutes of critical care time was devoted to this patient today, required to treat and/or prevent further deterioration of critical care condition ( as above ) . MARIA ESTHER DELGADO MD Jul 18, 2021 12:27
[2021-07-18] MEDS ORDERED: METOCLOPRAMIDE INJ 10 MG/2 ML (REGLAN) ONE (13:23)
[2021-07-18] MEDS ORDERED: FUROSEMIDE 40 MG/4 ML INJ (LASIX) ONE (13:23)
[2021-07-19] VITALS (30 sets, daily range): BP systolic 131–165; BP diastolic 62–89
[2021-07-19] MEDS: RT-ALBUTEROL HFA 8.5 GM INHALER IH SCH ×6 (02:49→22:21)
[2021-07-19] MEDS: fentaNYL DRIP PRE-MIX 250 ML IV SCH ×3 (03:06→23:33)
[2021-07-19 03:48] LABS: ABG BASE EXCESS -3.6 MMOL/L (-2.5-2.5); ABG OXYGEN SATURATION 74 % (94-100); ABG PO2 44 MMHG (79-93); ABG TCO2 28.1 MMOL/L (21.0-31.0)
[2021-07-19 03:59] LABS: ABG PCO2 90 MMHG (35-45); ABG PH 7.08 (7.37-7.43); ALLENS TEST YES-POS; VENTILATOR YES
[2021-07-19 04:00] LABS: PATIENT TEMP 36.9
[2021-07-19 04:06] LABS: BASOPHILS % (AUTO) 0 % (0-10); EOSINOPHILS % (AUTO) 0 % (0-10); HEMATOCRIT 28 % (40-54); HEMOGLOBIN 8.6 g/dL (13.3-17.7); LYMPHOCYTES # (AUTO) 0.5 10^3/uL (1.0-4.0); LYMPHOCYTES % (AUTO) 4 % (12-44); MEAN CORPUSCULAR HEMOGLOBIN 27 pg (25-34); MEAN CORPUSCULAR HGB CONC 31 g/dL (32-36); MEAN CORPUSCULAR VOLUME 89 fL (80-99); MEAN PLATELET VOLUME 11.9 fL (9.0-12.2); MONOCYTES # (AUTO) 0.3 10^3/uL (0.0-1.0); MONOCYTES % (AUTO) 2 % (0-12); NEUTROPHILS # (AUTO) 10.5 10^3/uL (1.8-7.8); NEUTROPHILS % (AUTO) 92 % (42-75); PLATELET COUNT 300 10^3/uL (130-400); WHITE BLOOD COUNT 11.5 10^3/uL (4.3-11.0)
[2021-07-19 04:17] LABS: CALCIUM 7.8 MG/DL (8.5-10.1)
[2021-07-19 04:22] LABS: CREATININE SERUM 0.97 MG/DL (0.60-1.30)
[2021-07-19 04:24] LABS: MAGNESIUM 2.6 MG/DL (1.6-2.4)
[2021-07-19] MEDS: KCL 20 MEQ TAB (K-DUR) PO SCH (06:15)
[2021-07-19] MEDS: POTASSIUM CL 10MEQ/50ML IVPB 50 ML IV SCH (06:15)
[2021-07-19] MEDS: MAGNESIUM 1 GM/100 ML IVPB 100 ML IV SCH (06:15)
[2021-07-19 07:35] LABS: ABG OXYGEN SATURATION 93 % (94-100); ABG PCO2 36 MMHG (35-45); ABG PH 7.51 (7.37-7.43); ABG PO2 70 MMHG (79-93); ABG TCO2 29.2 MMOL/L (21.0-31.0)
[2021-07-19 07:37] LABS: ALLENS TEST YES-POS; INSPIRED O2 40%; PATIENT TEMP 37.6; VENTILATOR YES
--- NOTE | 2021-07-19 08:13 | Progress Note ---
Subjective Date Seen by a Provider: Jul 19, 2021 Time Seen by a Provider: 07:05 Subjective/Events-last exam Patient not communicating because remains mechanically ventilated. The amount of sedation has been attempt to cut back. Objective Exam Vital Signs Date Time Temp Pulse Resp B/P (MAP) Pulse Ox O2 Delivery O2 Flow Rate FiO2 07/19/21 08:00 101 29 154/82 (106) 98 Mechanical Ventilator 40.00 07/19/21 07:54 92 Mechanical Ventilator 50 07/19/21 07:00 100 34 145/76 (99) 95 Mechanical Ventilator 40.00 07/19/21 07:00 103 07/19/21 06:42 99 32 95 40 07/19/21 06:00 97 34 145/74 (97) 95 Mechanical Ventilator 40.00 07/19/21 05:00 98 32 143/73 (96) 95 Mechanical Ventilator 40.00 07/19/21 04:53 Mechanical Ventilator 40.00 07/19/21 04:50 40 07/19/21 04:00 101 32 144/75 (98) 96 Mechanical Ventilator 50.00 07/19/21 04:00 92 Mechanical Ventilator 50 07/19/21 03:37 36.9 07/19/21 03:00 93 31 141/83 (102) 96 Mechanical Ventilator 50.00 07/19/21 02:50 90 28 97 50 07/19/21 02:03 Mechanical Ventilator 50.00 07/19/21 02:00 99 35 137/71 (93) 96 Mechanical Ventilator 40.00 07/19/21 01:00 90 30 135/68 (90) 95 Mechanical Ventilator 40.00 07/19/21 01:00 90 07/19/21 00:26 37.3 07/19/21 00:00 94 Mechanical Ventilator 40 07/19/21 00:00 85 28 131/62 (85) 97 Mechanical Ventilator 40.00 07/18/21 23:00 95 27 134/72 (92) 95 Mechanical Ventilator 40.00 07/18/21 22:31 97 23 94 40 07/18/21 22:00 93 30 137/64 (88) 92 Mechanical Ventilator 40.00 07/18/21 21:00 98 28 138/70 (92) 95 Mechanical Ventilator 40.00 07/18/21 20:57 36.9 07/18/21 20:00 92 27 137/68 (91) 95 Mechanical Ventilator 40.00 07/18/21 20:00 94 Mechanical Ventilator 40 07/18/21 19:07 90 27 96 40 07/18/21 19:00 90 07/18/21 19:00 91 27 132/66 (88) 96 Mechanical Ventilator 40.00 07/18/21 18:48 40.00 07/18/21 18:00 96 29 132/70 (90) 97 Mechanical Ventilator 45.00 07/18/21 17:09 45.00 07/18/21 17:00 93 21 137/76 (96) 99 Mechanical Ventilator 40.00 07/18/21 16:39 36.9 07/18/21 16:00 93 25 126/71 (89) 96 Mechanical Ventilator 40.00 07/18/21 15:55 100 Mechanical Ventilator 50 07/18/21 15:00 92 25 135/68 (90) 96 Mechanical Ventilator 40.00 07/18/21 14:03 95 25 96 70 07/18/21 14:00 93 22 134/67 (88) 98 Mechanical Ventilator 40.00 07/18/21 13:00 87 22 133/69 (87) 93 Mechanical Ventilator 40.00 07/18/21 12:40 90 07/18/21 12:00 91 20 136/69 (91) 94 Mechanical Ventilator 40.00 07/18/21 12:00 36.9 07/18/21 11:32 100 Mechanical Ventilator 50 07/18/21 11:00 95 26 135/68 (90) 93 Mechanical Ventilator 40.00 07/18/21 10:46 Mechanical Ventilator 40.00 07/18/21 10:42 93 22 95 45 07/18/21 10:00 96 18 129/65 (86) 95 Mechanical Ventilator 50.00 07/18/21 09:00 99 24 131/65 (87) 94 Mechanical Ventilator 50.00 07/18/21 08:32 37.1 I & O 07/19/21 07:00 Intake Total 1270 ml Output Total 3400 ml Balance -2130 ml Capillary Refill : Less Than 3 Seconds General Appearance: No Apparent Distress (But he does move with stimulation) Respiratory: Crackles (Throughout) Cardiovascular: Regular Rate, Rhythm Gastrointestinal: soft (And not as tense as previous) Extremity: Normal Capillary Refill Results Lab Laboratory Tests 07/18/21 17:44: Glucometer 154H 07/19/21 03:30: White Blood Count 11.5H, Red Blood Count 3.16L, Hemoglobin 8.6L, Hematocrit 28L, Mean Corpuscular Volume 89, Mean Corpuscular Hemoglobin 27, Mean Corpuscular Hemoglobin Concent 31L, Red Cell Distribution Width 15.7H, Platelet Count 300, Mean Platelet Volume 11.9, Immature Granulocyte % (Auto) 2, Neutrophils (%) (Auto) 92H, Lymphocytes (%) (Auto) 4L, Monocytes (%) (Auto) 2, Eosinophils (%) (Auto) 0, Basophils (%) (Auto) 0, Neutrophils # (Auto) 10.5H, Lymphocytes # (Auto) 0.5L, Monocytes # (Auto) 0.3, Eosinophils # (Auto) 0.0, Basophils # (Auto) 0.0, Immature Granulocyte # (Auto) 0.3H, Blood Gas Puncture Site L RAD IAL, Blood Gas Patient Temperature 36.9, Arterial Blood pH 7.08*L, Arterial Blood Partial Pressure CO2 90*H, Arterial Blood Partial Pressure O2 44L, Arterial Blood HCO3 25, Arterial Blood Total CO2 28.1, Arterial Blood Oxygen Saturation 74L, Arterial Blood Base Excess -3.6L, Cuong Test YES-POS, Blood Gas Ventilator Setting YES, Blood Gas Inspired Oxygen NA, Sodium Level 143, Potassium Level 4.0, Chloride Level 106, Carbon Dioxide Level 25, Anion Gap 12, Blood Urea Nitrogen 46H, Creatinine 0.97, Estimat Glomerular Filtration Rate 74, BUN/Creatinine Ratio 47, Glucose Level 133H, Calcium Level 7.8L, Magnesium Level 2.6H, Triglycerides Level 204H 07/19/21 07:30: Blood Gas Puncture Site UNK, Blood Gas Patient Temperature 37.6, Arterial Blood pH 7.51H, Arterial Blood Partial Pressure CO2 36, Arterial Blood Partial Pressure O2 70L, Arterial Blood HCO3 28H, Arterial Blood Total CO2 29.2, Arterial Blood Oxygen Saturation 93L, Arterial Blood Base Excess 5.0H, Cuong Test YES-POS, Blood Gas Ventilator Setting YES, Blood Gas Inspired Oxygen 40% Microbiology 07/11/21 Gram Stain - Final, Complete 07/11/21 Sputum Culture - Final, Complete Usual upper respiratory fareed 07/10/21 Blood Culture - Final, Complete No growth 8/26/21 Urine Culture - Final, Complete NO GROWTH Assessment/Plan Assessment/Plan Assess & Plan/Chief Complaint 1. Bilateral pneumonia -Patient to be initiated on cefepime as well as vancomycin. 07/11 -Day #2 of cefepime and vancomycin -He is currently on Vapotherm as he was unable to maintain saturations on nasal cannula oxygen. -Day #5 of cefepime and vancomycin -eICU and pulmonary following 07/15 -He remains intubated and FiO2 at 35 -CXR noted 07/16 -eICU and pulmonary monitoring. -IV Decadron continues 07/17 -Low-grade fever last night. Tylenol given and will continue to monitor. No cultures obtained -Chest x-ray from July 16, 2021 revealed slightly improved bilateral infiltrates 07/19 -IV Decadron continues 2. Coronavirus or COVID-19 infection -Respiratory care to keep his oxygen level in the mid 90 percentile 3. Hyponatremia -Monitor electrolytes 07/16 -Resolved 4. Nutritional status -Currently off IV fluids. -Consultation with dietary for tube feedings 07/15 -Tube feedings initiated -Abdomen a little firm but not distended, will continue to monitor 07/17 -Tube feedings have been on hold for now 07/18 -KUB obtained 07/19 -KUB reviewed and did not reveal obstruction 5. Hypophosphatemia -Replaced early a.m. 6. Anemia -Most likely due to chronic illness as opposed to acute bleed Clinical Quality Measures Admission Status Admission Dx 1. Bilateral pneumonia 2. Coronavirus or COVID-19 infection 3. Dehydration 4. Hyponatremia THADDEUS RAMAN MD Jul 19, 2021 08:13
--- NOTE | 2021-07-19 08:40 | Diagnostic Imaging Report ---
EXAMINATION: Chest radiograph, portable AP view. DATE: 07/19/2021 4:09 AM INDICATION: 81-year-old male, respiratory failure. COMPARISON: December 18, 2020. FINDINGS: The endotracheal tube is approximately 3 cm above the adolfo. The nasogastric tube is in the stomach. Heart size and mediastinal contours are unchanged. There is a right-sided PICC line with tip not well seen. There is no identified pneumothorax. There is multifocal bilateral lung consolidation. IMPRESSION: 1. Multifocal bilateral lung consolidation which is essentially unchanged. 2. Support lines and tubes as above. Dictated by: Dictated on workstation # [id number]
[2021-07-19] MEDS: ENOXAPARIN 80 MG/0.8 ML (LOVENOX) SYR SC SCH ×2 (08:50→23:33)
[2021-07-19] MEDS: PANTOPRAZOLE 40 MG (PROTONIX) VIAL IV SCH (08:50)
[2021-07-19] MEDS: ASPIRIN E.C. 81 MG (ECOTRIN) TAB PO SCH (08:51)
--- NOTE | 2021-07-19 10:08 | Tele-ICU Progress Note ---
Subjective Date Seen by a Provider: Jul 19, 2021 Time Seen by a Provider: 10:08 Sepsis Event Evaluation Height, Weight, BMI Height: 5'6.00" Weight: 165lbs. 0.0oz. 74.462454ew; 26.89 BMI Method:Stated Exam Exam Patient acknowledged, consented, and participated in this virtual visit which was conducted using real time audio/video Vital Signs Date Time Temp Pulse Resp B/P (MAP) Pulse Ox O2 Delivery O2 Flow Rate FiO2 07/19/21 09:35 102 33 92 45 07/19/21 09:00 102 28 165/88 (113) 91 Mechanical Ventilator 40.00 07/19/21 08:16 37.5 07/19/21 08:00 101 29 154/82 (106) 98 Mechanical Ventilator 40.00 07/19/21 07:54 92 Mechanical Ventilator 50 07/19/21 07:00 100 34 145/76 (99) 95 Mechanical Ventilator 40.00 07/19/21 07:00 103 07/19/21 06:42 99 32 95 40 07/19/21 06:00 97 34 145/74 (97) 95 Mechanical Ventilator 40.00 07/19/21 05:00 98 32 143/73 (96) 95 Mechanical Ventilator 40.00 07/19/21 04:53 Mechanical Ventilator 40.00 07/19/21 04:50 40 07/19/21 04:00 101 32 144/75 (98) 96 Mechanical Ventilator 50.00 07/19/21 04:00 92 Mechanical Ventilator 50 07/19/21 03:37 36.9 07/19/21 03:00 93 31 141/83 (102) 96 Mechanical Ventilator 50.00 07/19/21 02:50 90 28 97 50 07/19/21 02:03 Mechanical Ventilator 50.00 07/19/21 02:00 99 35 137/71 (93) 96 Mechanical Ventilator 40.00 07/19/21 01:00 90 30 135/68 (90) 95 Mechanical Ventilator 40.00 07/19/21 01:00 90 07/19/21 00:26 37.3 07/19/21 00:00 94 Mechanical Ventilator 40 07/19/21 00:00 85 28 131/62 (85) 97 Mechanical Ventilator 40.00 07/18/21 23:00 95 27 134/72 (92) 95 Mechanical Ventilator 40.00 07/18/21 22:31 97 23 94 40 07/18/21 22:00 93 30 137/64 (88) 92 Mechanical Ventilator 40.00 07/18/21 21:00 98 28 138/70 (92) 95 Mechanical Ventilator 40.00 07/18/21 20:57 36.9 07/18/21 20:00 92 27 137/68 (91) 95 Mechanical Ventilator 40.00 07/18/21 20:00 94 Mechanical Ventilator 40 07/18/21 19:07 90 27 96 40 07/18/21 19:00 90 07/18/21 19:00 91 27 132/66 (88) 96 Mechanical Ventilator 40.00 07/18/21 18:48 40.00 07/18/21 18:00 96 29 132/70 (90) 97 Mechanical Ventilator 45.00 07/18/21 17:09 45.00 07/18/21 17:00 93 21 137/76 (96) 99 Mechanical Ventilator 40.00 07/18/21 16:39 36.9 07/18/21 16:00 93 25 126/71 (89) 96 Mechanical Ventilator 40.00 07/18/21 15:55 100 Mechanical Ventilator 50 07/18/21 15:00 92 25 135/68 (90) 96 Mechanical Ventilator 40.00 07/18/21 14:03 95 25 96 70 07/18/21 14:00 93 22 134/67 (88) 98 Mechanical Ventilator 40.00 07/18/21 13:00 87 22 133/69 (87) 93 Mechanical Ventilator 40.00 07/18/21 12:40 90 07/18/21 12:00 91 20 136/69 (91) 94 Mechanical Ventilator 40.00 07/18/21 12:00 36.9 07/18/21 11:32 100 Mechanical Ventilator 50 07/18/21 11:00 95 26 135/68 (90) 93 Mechanical Ventilator 40.00 07/18/21 10:46 Mechanical Ventilator 40.00 07/18/21 10:42 93 22 95 45 I & O 07/19/21 07:00 Intake Total 1520 ml Output Total 3400 ml Balance -1880 ml Height & Weight Height: 5'6.00" Weight: 165lbs. 0.0oz. 74.632581wy; 26.89 BMI Method:Stated General Appearance: No Apparent Distress (But he does move with stimulation) HEENT: PERRL/EOMI, Normal ENT Inspection Neck: Supple Respiratory: Crackles (Throughout) Cardiovascular: Regular Rate, Rhythm Capillary Refill: Less Than 3 Seconds Peripheral Pulses: 1+ Dorsalis Pedis (R), 1+ Left Dors-Pedis (L) Gastrointestinal: soft (And not as tense as previous) Extremity: Normal Capillary Refill Neurologic/Psychiatric: No Alert Skin: Cool Results Lab Laboratory Tests 07/18/21 03:10 07/19/21 03:30 Assessment/Plan Assessment/Plan (Tele-ICU Physician , Progress Note ) Available chart/ vitals / labs / Images reviewed Video assessment done using teleICU camera, rest of exam as per RN Discussed with RN , EXAM PER RN - no edema Events overnight : AFEBRILE I/O = NEG 2 L Drips: Pressors: , hemodynamically stable Sedation gtt: ( RASS -3) prop 20 - trying to wean . fentanyl 100 , versed OFF propofol OFF not follow commands , withdraw to pain Consultants: cards Hospital course: 07/10 - COVID PNA 07/11 - INTUBATED 07/14=- AC 24 tv 390 + 10 60 % 07/15 - 55% +14 07/17 - + 8 80% - 50% fluctuate Consultants: A/P AHRF / ARDS due to severe COVID19 ( no PE on CT 07/10 -intubated 07/11 - AC 28 tv 390 + 8 45 - 40% % PAP20 - not proning - HOLD diuresis today Encephalopathy - trying to wean off sedation - only on fentanyl now - continue to wean CRUP-Sjhifblrafe-9/COVID-19 PNA ( Not vaccinated , exposure 06/29 , COvid vaccine 07/02 , Dx 07/10 - will give 1 dose of lasix ( +1L volume balance last 24 h -Steroids IV - started 07/10 -Hypercoagulable state , DDIMER 0.75 on 07/10 -> was started on fill lovenox dose 07/11 ( no evidence of large PE on CT 07/10 ) Suspected superimposed bact PNA -empiric abx started 07/10 ( PCT 0.28 ) - cefepime as well as vancomycin. 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 Discussed with RN to reach out if any questions or concerns A total of 37 minutes of critical care time was devoted to this patient today, required to treat and/or prevent further deterioration of critical care condition ( as above ) . MARIA ESTHER DELGADO MD Jul 19, 2021 10:08
[2021-07-19] MEDS: DexMEDEtomidine 250 ML DRIP 250 ML IV SCH (12:26)
[2021-07-19] MEDS ORDERED: APAP 325 MG/10.15 ML LIQ (TYLENOL) UDC PO PRN (12:30)
[2021-07-19] MEDS: ACETAMINOPHEN 325 MG TABLET PO PRN (12:32)
--- NOTE | 2021-07-19 13:34 | Progress Note - Cardiology ---
Cardiology SOAP Progress Note Subjective: Intubated and on mech vent, not able to communicate Objective: I&O/Vital Signs 07/19/21 07/19/21 07/19/21 07/19/21 02:00 02:03 02:50 03:00 Pulse 99 90 93 Resp 35 28 31 B/P (MAP) 137/71 (93) 141/83 (102) Pulse Ox 96 97 96 O2 Delivery Mechanical Ventilator Mechanical Ventilator Mechanical Ventilator O2 Flow Rate 40.00 50.00 50.00 FiO2 50 07/19/21 07/19/21 07/19/21 07/19/21 03:37 04:00 04:00 04:50 Temp 36.9 Pulse 101 Resp 32 B/P (MAP) 144/75 (98) Pulse Ox 92 96 O2 Delivery Mechanical Ventilator Mechanical Ventilator O2 Flow Rate 50.00 FiO2 50 40 07/19/21 07/19/21 07/19/21 07/19/21 04:53 05:00 06:00 06:42 Pulse 98 97 99 Resp 32 34 32 B/P (MAP) 143/73 (96) 145/74 (97) Pulse Ox 95 95 95 O2 Delivery Mechanical Ventilator Mechanical Ventilator Mechanical Ventilator O2 Flow Rate 40.00 40.00 40.00 FiO2 40 07/19/21 07/19/21 07/19/21 07/19/21 07:00 07:00 07:54 08:00 Pulse 103 100 101 Resp 34 29 B/P (MAP) 145/76 (99) 154/82 (106) Pulse Ox 95 92 98 O2 Delivery Mechanical Ventilator Mechanical Ventilator Mechanical Ventilator O2 Flow Rate 40.00 40.00 FiO2 50 07/19/21 07/19/21 07/19/21 07/19/21 08:16 09:00 09:30 09:35 Temp 37.5 Pulse 102 102 Resp 28 33 B/P (MAP) 165/88 (113) Pulse Ox 91 92 O2 Delivery Mechanical Ventilator O2 Flow Rate 40.00 45.00 FiO2 45 07/19/21 07/19/21 07/19/21 07/19/21 10:00 11:00 12:00 12:02 Temp 37.5 Pulse 106 94 100 Resp 34 36 31 B/P (MAP) 143/72 (95) 146/76 (98) 154/84 (107) Pulse Ox 95 94 95 O2 Delivery Mechanical Ventilator Mechanical Ventilator Mechanical Ventilator O2 Flow Rate 45.00 45.00 45.00 07/19/21 07/19/21 07/19/21 12:06 12:26 13:00 Pulse 112 116 B/P (MAP) 139/80 Pulse Ox 98 O2 Delivery Mechanical Ventilator FiO2 45 07/19/21 00:00 Intake Total 510 ml Output Total 2475 ml Balance -1965 ml Weight (Pounds): 165 Weight (Ounces): 0.0 Weight (Calculated Kilograms): 74.285806 Constitutional: other (intubated, on mech vent, unable to communicate) Skin: normal color, warm/dry Results/Procedures: Labs Laboratory Tests 07/18/21 17:44: Glucometer 154H 07/19/21 03:30: White Blood Count 11.5H, Red Blood Count 3.16L, Hemoglobin 8.6L, Hematocrit 28L, Mean Corpuscular Volume 89, Mean Corpuscular Hemoglobin 27, Mean Corpuscular Hem oglobin Concent 31L, Red Cell Distribution Width 15.7H, Platelet Count 300, Mean Platelet Volume 11.9, Immature Granulocyte % (Auto) 2, Neutrophils (%) (Auto) 92H, Lymphocytes (%) (Auto) 4L, Monocytes (%) (Auto) 2, Eosinophils (%) (Auto) 0, Basophils (%) (Auto) 0, Neutrophils # (Auto) 10.5H, Lymphocytes # (Auto) 0.5L , Monocytes # (Auto) 0.3, Eosinophils # (Auto) 0.0, Basophils # (Auto) 0.0, Immature Granulocyte # (Auto) 0.3H, Blood Gas Puncture Site L RADIAL, Blood Gas Patient Temperature 36.9, Arterial Blood pH 7.08*L, Arterial Blood Partial Pressure CO2 90*H, Arterial Blood Partial Pressure O2 44L, Arterial Blood HCO3 25, Arterial Blood Total CO2 28.1, Arterial Blood Oxygen Saturation 74L, Arterial Blood Base Excess -3.6L, Cuong Test YES-POS, Blood Gas Ventilator Setting YES, Blood Gas Inspired Oxygen NA, Sodium Level 143, Potassium Level 4.0, Chloride Level 106, Carbon Dioxide Level 25, Anion Gap 12, Blood Urea Nitrogen 46H, Creatinine 0.97, Estimat Glomerular Filtration Rate 74, BUN/Creatinine Ratio 47, Glucose Level 133H, Calcium Level 7.8L, Magnesium Level 2.6H, Triglycerides Level 204H 07/19/21 07:30: Blood Gas Puncture Site UNK, Blood Gas Patient Temperature 37.6, Arterial Blood pH 7.51H, Arterial Blood Partial Pressure CO2 36, Arterial Blood Partial Pressure O2 70L, Arterial Blood HCO3 28H, Arterial Blood Total CO2 29.2, Arterial Blood Oxygen Saturation 93L, Arterial Blood Base Excess 5.0H, Cuong Test YES-POS, Blood Gas Ventilator Setting YES, Blood Gas Inspired Oxygen 40% Microbiology 07/11/21 Gram Stain - Final, Complete 07/11/21 Sputum Culture - Final, Complete Usual upper respiratory fareed 07/10/21 Blood Culture - Final, Complete No growth 07/10/21 Urine Culture - Final, Complete NO GROWTH Laboratory Tests 07/18/21 03:10 07/19/21 03:30 A/P: Assessment: Acute respiratory failure secondary to COVID-19 pneumonia, ventilator dependent, managed by primary care team Non-ST elevation myocardial infarction, probably type II myocardial infarction secondary to severe hypoxemia. EKG reviewed did not show any acute ST elevation, patient has left anterior fascicular block. Has significant elevation in troponin. Underlying coronary artery disease cannot be entirely excluded. Maintained on Lovenox and aspirin. Continue to monitor Hypertension, has been on bisoprolol, lisinopril and hydrochlorothiazide as an outpatient. iv beta-lucinda in the hospital, as needed Electrolyte imbalance with hyponatremia, hypokalemia, now resolved. Continue to monitor Anemia. Continue to monitor ANNALISA PENA MD FACP [facility] Jul 19, 2021 13:34
[2021-07-19] MEDS: meTOprolol 5 MG/5 ML (LOPRESSOR) VIAL IV SCH ×3 (15:46→23:34)
[2021-07-19] MEDS ORDERED: ACETAMINOPHEN 325 MG TABLET PO PRN (19:45)
[2021-07-20] VITALS (16 sets, daily range): BP systolic 94–152; BP diastolic 50–81
[2021-07-20] MEDS: DexMEDEtomidine 250 ML DRIP 250 ML IV SCH ×2 (01:24→09:53)
[2021-07-20] MEDS: RT-ALBUTEROL HFA 8.5 GM INHALER IH SCH ×3 (01:49→11:54)
--- NOTE | 2021-07-20 02:15 | Progress Note ---
Standard Progress Note Progress Notes/Assess & Plan Date Seen by a Provider: Jul 20, 2021 Time Seen by a Provider: 02:13 Progress/Assessment & Plan off sedation, now spont RR 40-50, drop in SpO2 to mid 80's, will place back on sedation and increase FiO2 to 60% MD ALEIDA Sellers JOSEPH K MD Jul 20, 2021 02:14
[2021-07-20] MEDS: PROPOFOL DRIP (ICU) 100 ML IV SCH ×2 (02:17→06:55)
[2021-07-20] MEDS: meTOprolol 5 MG/5 ML (LOPRESSOR) VIAL IV SCH ×2 (03:26→07:38)
[2021-07-20 03:58] LABS: BASOPHILS % (AUTO) 0 % (0-10); EOSINOPHILS % (AUTO) 0 % (0-10); HEMATOCRIT 28 % (40-54); HEMOGLOBIN 8.4 g/dL (13.3-17.7); LYMPHOCYTES # (AUTO) 0.4 10^3/uL (1.0-4.0); LYMPHOCYTES % (AUTO) 4 % (12-44); MEAN CORPUSCULAR HEMOGLOBIN 27 pg (25-34); MEAN CORPUSCULAR HGB CONC 30 g/dL (32-36); MEAN CORPUSCULAR VOLUME 90 fL (80-99); MEAN PLATELET VOLUME 11.5 fL (9.0-12.2); MONOCYTES # (AUTO) 0.4 10^3/uL (0.0-1.0); MONOCYTES % (AUTO) 3 % (0-12); NEUTROPHILS # (AUTO) 11.3 10^3/uL (1.8-7.8); NEUTROPHILS % (AUTO) 91 % (42-75); PLATELET COUNT 313 10^3/uL (130-400); WHITE BLOOD COUNT 12.4 10^3/uL (4.3-11.0)
[2021-07-20 04:04] LABS: ABG BASE EXCESS 1.1 MMOL/L (-2.5-2.5); ABG OXYGEN SATURATION 90 % (94-100); ABG PCO2 35 MMHG (35-45); ABG PH 7.46 (7.37-7.43); ABG PO2 67 MMHG (79-93); ABG TCO2 25.5 MMOL/L (21.0-31.0)
[2021-07-20 04:08] LABS: ALLENS TEST YES-POS; INSPIRED O2 70%; PATIENT TEMP 37.9; VENTILATOR YES
[2021-07-20 04:16] LABS: POTASSIUM 3.7 MMOL/L (3.6-5.0)
[2021-07-20 04:18] LABS: CALCIUM 7.2 MG/DL (8.5-10.1)
[2021-07-20 04:22] LABS: CREATININE SERUM 0.92 MG/DL (0.60-1.30)
[2021-07-20 04:24] LABS: MAGNESIUM 2.4 MG/DL (1.6-2.4)
[2021-07-20] MEDS: fentaNYL DRIP PRE-MIX 250 ML IV SCH ×2 (04:59→09:50)
[2021-07-20] MEDS: KCL 20 MEQ TAB (K-DUR) PO SCH (05:25)
[2021-07-20] MEDS: POTASSIUM CL 10MEQ/50ML IVPB 50 ML IV SCH (05:25)
[2021-07-20] MEDS: MAGNESIUM 1 GM/100 ML IVPB 100 ML IV SCH (05:25)
--- NOTE | 2021-07-20 07:25 | Diagnostic Imaging Report ---
INDICATION: Respiratory failure Frontal chest obtained at 0255 a.m. and compared with the previous day. ET tube tip overlies mid trachea. Right-sided PICC line is unchanged. Extensive bilateral infiltrates remain unchanged compared to the prior study. There is no pneumothorax or gross pleural fluid. NG tube tip is overlying distal stomach. IMPRESSION: No change in extensive bilateral infiltrates. No new abnormality. Dictated by: Dictated on workstation # [id number]
--- NOTE | 2021-07-20 07:26 | Progress Note ---
Subjective Date Seen by a Provider: Jul 20, 2021 Time Seen by a Provider: 06:50 Subjective/Events-last exam Patient has no gag reflex. He still remains mechanically ventilated along with sedation. He has spiked a few low-grade temps. His sputum is becoming more thick Objective Exam Vital Signs Date Time Temp Pulse Resp B/P (MAP) Pulse Ox O2 Delivery O2 Flow Rate FiO2 07/20/21 07:00 Mechanical Ventilator 100.00 07/20/21 06:00 98 38 135/67 (89) 92 Mechanical Ventilator 70.00 07/20/21 05:00 89 38 139/68 (91) 96 Mechanical Ventilator 70.00 07/20/21 04:00 92 Mechanical Ventilator 70 07/20/21 04:00 88 37 145/75 (98) 93 Mechanical Ventilator 70.00 07/20/21 03:25 37.9 07/20/21 03:00 92 38 139/70 (93) 96 Mechanical Ventilator 70.00 07/20/21 02:19 Mechanical Ventilator 70.00 07/20/21 02:17 101 148/81 07/20/21 02:00 95 38 148/81 (103) 97 Mechanical Ventilator 60.00 07/20/21 01:49 99 40 93 60 07/20/21 01:28 Mechanical Ventilator 60.00 07/20/21 01:00 92 38 137/72 (93) 94 Mechanical Ventilator 55.00 07/20/21 01:00 91 07/20/21 00:00 90 38 146/76 (99) 94 Mechanical Ventilator 55.00 07/20/21 00:00 92 Mechanical Ventilator 55 07/19/21 23:51 Mechanical Ventilator 55.00 07/19/21 23:49 Mechanical Ventilator 50.00 07/19/21 23:40 37.9 07/19/21 23:00 87 146/76 (99) 92 Mechanical Ventilator 45.00 07/19/21 22:21 90 38 94 45 07/19/21 22:00 96 38 148/79 (102) 94 Mechanical Ventilator 45.00 07/19/21 21:00 95 151/78 (102) 92 Mechanical Ventilator 45.00 07/19/21 20:00 92 Mechanical Ventilator 45 07/19/21 20:00 89 39 148/77 (100) 94 Mechanical Ventilator 45.00 07/19/21 19:43 37.5 07/19/21 19:00 85 39 140/82 (101) 95 Mechanical Ventilator 45.00 07/19/21 19:00 85 07/19/21 18:49 84 38 94 45 07/19/21 18:00 85 38 146/75 (98) 94 Mechanical Ventilator 45.00 07/19/21 17:00 87 35 150/80 (103) 98 Mechanical Ventilator 45.00 07/19/21 16:00 92 25 155/76 (102) 99 Mechanical Ventilator 45.00 07/19/21 16:00 37.8 07/19/21 15:57 98 Mechanical Ventilator 45 07/19/21 15:38 100 45 96 45 07/19/21 15:00 111 152/89 (110) 93 Mechanical Ventilator 45.00 07/19/21 14:00 91 32 138/69 (92) 95 Mechanical Ventilator 45.00 07/19/21 13:00 106 35 147/75 (99) 93 Mechanical Ventilator 45.00 07/19/21 13:00 116 07/19/21 12:26 112 139/80 07/19/21 12:06 98 Mechanical Ventilator 45 07/19/21 12:02 37.5 07/19/21 12:00 100 31 154/84 (107) 95 Mechanical Ventilator 45.00 07/19/21 11:00 94 36 146/76 (98) 94 Mechanical Ventilator 45.00 07/19/21 10:00 106 34 143/72 (95) 95 Mechanical Ventilator 45.00 07/19/21 09:35 102 33 92 45 07/19/21 09:30 45.00 07/19/21 09:00 102 28 165/88 (113) 91 Mechanical Ventilator 40.00 07/19/21 08:16 37.5 07/19/21 08:00 101 29 154/82 (106) 98 Mechanical Ventilator 40.00 07/19/21 07:54 92 Mechanical Ventilator 50 I & O 07/20/21 07:00 Intake Total 2582 ml Output Total 1575 ml Balance 1007 ml Capillary Refill : Less Than 3 Seconds General Appearance: No Apparent Distress (But he is sedated and mechanically ventilated) Neck: Supple Respiratory: Rhonci (Scattered throughout) Cardiovascular: Regular Rate, Rhythm Gastrointestinal: soft Skin: Normal Color, Cool Results Lab Laboratory Tests 07/19/21 07:30: Blood Gas Puncture Site UNK, Blood Gas Patient Temperature 37.6, Arterial Blood pH 7.51H, Arterial Blood Partial Pressure CO2 36, Arterial Blood Partial Pressure O2 70L, Arterial Blood HCO3 28H, Arterial Blood Total CO2 29.2, Arterial Blood Oxygen Saturation 93L, Arterial Blood Base Excess 5.0H, Cuong Test YES-POS, Blood Gas Ventilator Setting YES, Blood Gas Inspired Oxygen 40% 07/19/21 17:18: Glucometer 141H 07/20/21 03:30: White Blood Count 12.4H, Red Blood Count 3.08L, Hemoglobin 8.4L, Hematocrit 28L, Mean Corpuscular Volume 90, Mean Corpuscular Hemoglobin 27, Mean Corpuscular Hemoglobin Concent 30L, Red Cell Distribution Width 15.6H, Platelet Count 313, Mean Platelet Volume 11.5, Immature Granulocyte % (Auto) 2, Neutrophils (%) (Auto) 91H, Lymphocytes (%) (Auto) 4L, Monocytes (%) (Auto) 3, Eosinophils (%) (Auto) 0, Basophils (%) (Auto) 0, Neutrophils # (Auto) 11.3H, Lymphocytes # (Auto) 0.4L, Monocytes # (Auto) 0.4, Eosinophils # (Auto) 0.0, Basophils # (Auto) 0.0, Immature Granulocyte # (Auto) 0.3H, Sodium Level 148H, Potassium Level 3.7, Chloride Level 114H, Carbon Dioxide Level 22, Anion Gap 12, Blood Urea Nitrogen 50H, Creatinine 0.92, Estimat Glomerular Filtration Rate 79, BUN/Creatinine Ratio 54, Glucose Level 126H, Calcium Level 7.2L, Magnesium Level 2.4 07/20/21 03:40: Blood Gas Puncture Site LEFT RADIAL, Blood Gas Patient Temperature 37.9, Arterial Blood pH 7.46H, Arterial Blood Partial Pressure CO2 35, Arterial Blood Partial Pressure O2 67L, Arterial Blood HCO3 24, Arterial Blood Total CO2 25.5, Arterial Blood Oxygen Saturation 90L, Arterial Blood Base Excess 1.1, Cuong Test YES-POS, Blood Gas Ventilator Setting YES, Blood Gas Inspired Oxygen 70% Microbiology 07/11/21 Gram Stain - Final, Complete 07/11/21 Sputum Culture - Final, Complete Usual upper respiratory fareed 07/10/21 Blood Culture - Final, Complete No growth 07/10/21 Urine Culture - Final, Complete NO GROWTH Assessment/Plan Assessment/Plan Assess & Plan/Chief Complaint 1. Bilateral pneumonia -Patient to be initiated on cefepime as well as vancomycin. 07/11 -Day #2 of cefepime and vancomycin -He is currently on Vapotherm as he was unable to maintain saturations on nasal cannula oxygen. -Day #5 of cefepime and vancomycin -eICU and pulmonary following 07/15 -He remains intubated and FiO2 at 35 -CXR noted 07/16 -eICU and pulmonary monitoring. -IV Decadron continues 07/17 -Low-grade fever last night. Tylenol given and will continue to monitor. No cultures obtained -Chest x-ray from July 16, 2021 revealed slightly improved bilateral infiltrates 07/19 -IV Decadron continues 07/20 -We will check sputum culture 2. Coronavirus or COVID-19 infection -Respiratory care to keep his oxygen level in the mid 90 percentile 07/19 -IV Decadron continues 3. Hyponatremia -Monitor electrolytes 07/16 -Resolved 4. Nutritional status -Currently off IV fluids. -Consultation with dietary for tube feedings 07/15 -Tube feedings initiated -Abdomen a little firm but not distended, will continue to monitor 07/17 -Tube feedings have been on hold for now 07/18 -KUB obtained 07/19 -KUB reviewed and did not reveal obstruction 5. Hypophosphatemia -Replaced early a.m. 6. Anemia -Most likely due to chronic illness as opposed to acute bleed Clinical Quality Measures Admission Status Admission Dx 1. Bilateral pneumonia 2. Coronavirus or COVID-19 infection 3. Dehydration 4. Hyponatremia THADDEUS RAMAN MD Jul 20, 2021 07:26
[2021-07-20] MEDS: ASPIRIN E.C. 81 MG (ECOTRIN) TAB PO SCH (07:38)
[2021-07-20] MEDS: PANTOPRAZOLE 40 MG (PROTONIX) VIAL IV SCH (07:38)
[2021-07-20] MEDS: ENOXAPARIN 80 MG/0.8 ML (LOVENOX) SYR SC SCH (07:45)
--- NOTE | 2021-07-20 08:28 | Tele-ICU Progress Note ---
Subjective Date Seen by a Provider: Jul 20, 2021 Time Seen by a Provider: 08:28 Subjective/Events-last exam year-old male with a Covid pneumonia has been intubated for a while due to ARDS. Apparently RN is trying to wean him off the sedation due to his unresponsiveness. However today patient's respirations went up to 40/min and then needed 100% FiO2 as he became hypoxic. He also spiked a temperature 39.2 C. In order to increase PEEP to 12 and get a sputum and blood cultures and start on meropenem. Increase propofol to 50 mcg/kg/min. Advised RN to talk to the family regarding possible comfort measures as his prognosis is very grim. Review of Systems he is intubated and on vent. rest of ros per attending physician Sepsis Event Evaluation Height, Weight, BMI Height: 5'6.00" Weight: 165lbs. 0.0oz. 74.713676sl; 26.89 BMI Method:Stated Exam Exam Patient acknowledged, consented, and participated in this virtual visit which was conducted using real time audio/video Vital Signs Date Time Temp Pulse Resp B/P (MAP) Pulse Ox O2 Delivery O2 Flow Rate FiO2 07/20/21 08:04 39.5 07/20/21 08:00 95 Mechanical Ventilator 100 07/20/21 08:00 95 41 130/66 (81) 96 Mechanical Ventilator 100.00 07/20/21 07:19 102 43 94 100 07/20/21 07:00 104 07/20/21 07:00 Mechanical Ventilator 100.00 07/20/21 07:00 101 46 151/69 (82) 96 Mechanical Ventilator 70.00 07/20/21 06:00 98 38 135/67 (89) 92 Mechanical Ventilator 70.00 07/20/21 05:00 89 38 139/68 (91) 96 Mechanical Ventilator 70.00 07/20/21 04:00 92 Mechanical Ventilator 70 07/20/21 04:00 88 37 145/75 (98) 93 Mechanical Ventilator 70.00 07/20/21 03:25 37.9 07/20/21 03:00 92 38 139/70 (93) 96 Mechanical Ventilator 70.00 07/20/21 02:19 Mechanical Ventilator 70.00 07/20/21 02:17 101 148/81 07/20/21 02:00 95 38 148/81 (103) 97 Mechanical Ventilator 60.00 07/20/21 01:49 99 40 93 60 07/20/21 01:28 Mechanical Ventilator 60.00 07/20/21 01:00 92 38 137/72 (93) 94 Mechanical Ventilator 55.00 07/20/21 01:00 91 07/20/21 00:00 90 38 146/76 (99) 94 Mechanical Ventilator 55.00 07/20/21 00:00 92 Mechanical Ventilator 55 07/19/21 23:51 Mechanical Ventilator 55.00 07/19/21 23:49 Mechanical Ventilator 50.00 07/19/21 23:40 37.9 07/19/21 23:00 87 146/76 (99) 92 Mechanical Ventilator 45.00 07/19/21 22:21 90 38 94 45 07/19/21 22:00 96 38 148/79 (102) 94 Mechanical Ventilator 45.00 07/19/21 21:00 95 151/78 (102) 92 Mechanical Ventilator 45.00 07/19/21 20:00 92 Mechanical Ventilator 45 07/19/21 20:00 89 39 148/77 (100) 94 Mechanical Ventilator 45.00 07/19/21 19:43 37.5 07/19/21 19:00 85 39 140/82 (101) 95 Mechanical Ventilator 45.00 07/19/21 19:00 85 07/19/21 18:49 84 38 94 45 07/19/21 18:00 85 38 146/75 (98) 94 Mechanical Ventilator 45.00 07/19/21 17:00 87 35 150/80 (103) 98 Mechanical Ventilator 45.00 07/19/21 16:00 92 25 155/76 (102) 99 Mechanical Ventilator 45.00 07/19/21 16:00 37.8 07/19/21 15:57 98 Mechanical Ventilator 45 07/19/21 15:38 100 45 96 45 07/19/21 15:00 111 152/89 (110) 93 Mechanical Ventilator 45.00 07/19/21 14:00 91 32 138/69 (92) 95 Mechanical Ventilator 45.00 07/19/21 13:00 106 35 147/75 (99) 93 Mechanical Ventilator 45.00 07/19/21 13:00 116 07/19/21 12:26 112 139/80 07/19/21 12:06 98 Mechanical Ventilator 45 07/19/21 12:02 37.5 07/19/21 12:00 100 31 154/84 (107) 95 Mechanical Ventilator 45.00 07/19/21 11:00 94 36 146/76 (98) 94 Mechanical Ventilator 45.00 07/19/21 10:00 106 34 143/72 (95) 95 Mechanical Ventilator 45.00 07/19/21 09:35 102 33 92 45 07/19/21 09:30 45.00 07/19/21 09:00 102 28 165/88 (113) 91 Mechanical Ventilator 40.00 I & O 07/20/21 07:00 Intake Total 2582 ml Output Total 1575 ml Balance 1007 ml Height & Weight Height: 5'6.00" Weight: 165lbs. 0.0oz. 74.446532su; 26.89 BMI Method:Stated General Appearance: No Apparent Distress (But he is sedated and mechanically ventilated) HEENT: PERRL/EOMI, Normal ENT Inspection Neck: Supple Respiratory: Rhonci (Scattered throughout) Cardiovascular: Regular Rate, Rhythm Capillary Refill: Less Than 3 Seconds Peripheral Pulses: 1+ Dorsalis Pedis (R), 1+ Left Dors-Pedis (L) Gastrointestinal: soft Extremity: Normal Capillary Refill Neurologic/Psychiatric: No Alert Skin: Normal Color, Cool Other comments PE per attending physician Results Lab Laboratory Tests 07/19/21 03:30 07/20/21 03:30 Meds reviewed Radiology cxr reviewed Assessment/Plan Assessment/Plan 1. Covidpneumonia with ARDS. No PE on the CT on 826. 2. Acute hypoxic respiratory failure requiring mechanical ventilation. Today he is on a PEEP of 8 and FiO2 of 100% and respiratory rate increased to 30s. Fever with a sebas colored sputum. Rule out hospital-acquired pneumonia. 3. High risk for DVT. Recommendations 1. Increase PEEP to 12 and increase propofol to 50 mcg/kg/min and monitor triglycerides. 2. Obtain sputum and blood cultures and start on meropenem. 3. Monitor blood gases and cultures. 4. DVT prophylaxis and ulcer prophylaxis. 5. DNR status. 6. Discussed with the RN to discuss with the patient's family to consider palliative care services. Critical Care: Critically Ill Patient Time spent with patient (mins): 40 PRIYANKA SCHULTZ MD Jul 20, 2021 08:28
[2021-07-20] MEDS ORDERED: MEROPENEM 500 MG in WATER (STERILE) FOR INJECTION 10 ML IV SCH (09:00)
[2021-07-20 11:10] LABS: ABG BASE EXCESS -1.2 MMOL/L (-2.5-2.5); ABG OXYGEN SATURATION 77 % (94-100); ABG PCO2 38 MMHG (35-45); ABG PO2 48 MMHG (79-93); ABG TCO2 23.8 MMOL/L (21.0-31.0)
[2021-07-20 11:16] LABS: ALLENS TEST YES-POS; INSPIRED O2 100%
[2021-07-20 11:17] LABS: PATIENT TEMP 37.9; VENTILATOR YES
[2021-07-20] MEDS ORDERED: GLYCOPYRROLATE 0.2 MG/ML (ROBINUL) 2 ML VIAL IV PRN (12:00)
[2021-07-20] MEDS ORDERED: LORazepam INJ 2 MG/ML (ATIVAN) VIAL IVP PRN (12:00)
[2021-07-20] MEDS ORDERED: ONDANSETRON 4 MG/2 ML (SDV) Z0FRAN IVP PRN (12:00)
[2021-07-20] MEDS ORDERED: PROMETHAZINE INJ 25 MG/ML (PHENERGAN) AMP IVP PRN (12:00)
[2021-07-20] MEDS ORDERED: morphine INJ 4 MG/ML 1 ML (VIAL/SYRINGE) IV PRN (12:00)
== END 2021-07-20 13:00 | disposition expired | DRG 207 ==
LOC: EDUNIT# 07:39 → ER 07:41 → 4TH 10:11 → ICU 07-11 14:01
PROVIDERS: ADMIT Family Medicine; ATTEND Family Medicine
PROC: 5A1955Z Respiratory Ventilation, Greater than 96 Consecutive Hours (ICD-10-PCS; principal; 2021-07-11)
PROC: 0BH17EZ Insertion of Endotracheal Airway into Trachea, Via Natural or Artificial Opening (ICD-10-PCS; 2021-07-11)
DX: U07.1 COVID-19 (principal); J12.82 Pneumonia due to coronavirus disease 2019; J80 Acute respiratory distress syndrome; J15.9 Unspecified bacterial pneumonia; J81.0 Acute pulmonary edema; I21.A1 Myocardial infarction type 2; E87.1 Hypo-osmolality and hyponatremia; N17.9 Acute kidney failure, unspecified; D68.59 Other primary thrombophilia; G93.40 Encephalopathy, unspecified; Z51.5 Encounter for palliative care; Z66 Do not resuscitate; K21.9 Gastro-esophageal reflux disease without esophagitis; I10 Essential (primary) hypertension; E86.0 Dehydration; D63.8 Anemia in other chronic diseases classified elsewhere; K44.9 Diaphragmatic hernia without obstruction or gangrene; R77.8 Other specified abnormalities of plasma proteins; I44.4 Left anterior fascicular block; E87.6 Hypokalemia; E83.31 Familial hypophosphatemia; E78.1 Pure hyperglyceridemia; Z79.899 Other long term (current) drug therapy; Z87.891 Personal history of nicotine dependence; Z86.73 Personal history of transient ischemic attack (TIA), and cerebral infarction without residual deficits
CPT/HCPCS: 36415; 36569; 71045; 71275; 74018; 76937; 80048; 80053; 80202; 81000; 82805; 82947; 83605; 83735; 83880; 84100; 84145; 84478; 84484; 85007; 85025; 85027; 85379; 85610; 85730; 86141; 87040; 87070; 87088; 87205; 87636; 93005; 94002; 94003; 94640; 94660; 94664; 94760; 94799; 96361; 96374; 96375